=== PATIENT | male | born 1965 | race Hispanic/Latino ===

== ENCOUNTER 2021-04-21 20:15 | Inpatient (IN) | payer OTHER ==
--- OUTSIDE RECORDS SUMMARY | 2021-04-21 20:18 | XMS REPORT | Continuity of Care Document ---
:1965 Author Organization [facility] t Address [address] [place] [address] Care Team Providers Name Role Phone UNKNOWN, REFFERING Primary Care Physician Unavailable Problems This patient has no known problems. Allergies, Adverse Reactions, Alerts This patient has no known allergies or adverse reactions. Medications This patient has no known medications. Procedures This patient has no known procedures. Encounters Start End Encounter Admission Attending Care Care Encounter Source Date/Time Date/Time Type Type Clinicians Facility Department ID 2016-12-13 2016-12-13 Outpatient C [facility] OLY [id number] [address] 11:09:00 11:09:00 [facility] Results Test Description Test Time Test Comments Results Result Comments Source TESTOSTERONE 2021-02-04 03:18:15 Test Item Value Reference Range Interpretation Comme nts TESTOSTERONE (test code = 2830) 299 NG/DL 300-890 L UNLESS OTHERWISE INDICATED, ALL TESTING PERFORMED ATCLINICAL PATH [facility], [place] [address] 4 LABORATORY DIRE CTOR: HALEY JETT M.D. CLIA NUMBER [id number] [place] [id number] FSH + LH [id number] 03:17:56 Test Item Value Reference Range Interpretation Comments FOLLICLE STIM HORMONE (test code = 5.9 IU/L 1.5-12.4 2700) LUTEINIZING HORMONE (test code = 5.3 IU/L 1.2-8.6 2776) [id number] 03:17:56 Test Item Value Reference Range Interpretation Comments PROLACTIN (test 8.1 NG/ML 4.0-26.0 NOTE: Me thodology is Sanna code = 2800) Jerry Electroch emiluminescence Immunoassay ( ECLIA). Values obtained with d ifferent assays/manufact urers cannot be used interchang eably. Results should not be used as sole basis to e stablish the presence or abs ence of malignancy. TSH, THIRD [id number] 03:17:56 Test Item Value Reference Range Interpretation Comments TSH, THIRD GENERATION (test code 2.490 UIU/ML 0.400-4.100 = 2821) HEPATITIS PANEL, [id number] 04:56:50 Test Item Value Reference Range Interpretation Comments HEPATITIS A IgM (test NON-REACTIVE NON-REACTIVE code = 93688) HEPATITIS B CORE IgM NON-REACTIVE NON-REACTIVE (test code = 4644) HEPATITIS B SURF AG NON-REACTIVE NON-REACTIVE (test code = 2739) HEPATITIS C ANTIBODY NON-REACTIVE NON-REACTIVE (test code = 4675) INTERPRETATION (NOTE) Hepatiti s A HEPATITIS A: (test serology shows no code = 2552) evidence of acu te hepatitis A. INTERPRETATION (NOTE) Hepatiti s B HEPATITIS B: (test serology shows no code = 14016) evidence of ac [place] hepatitis B and no indication of exposure to hepatitis B vir us in the previous si xto eight months. INTERPRETATION (NOTE) Hepatiti s C HEPATITIS C: (test serology shows no code = 75192) evidence of ex posure to hepatitisC v irus at this time. It can take up to 12 months after exposure tothe hepatitis C vir us for antibodies to become detectab le in the blood i n certain patient s. UNLESS OTHE RWISE INDICATED, ALL TESTING PERFORM ED ATCLINICAL PATH [facility], I [address]. [address] [place] [address] 4 WAREHOUSE CHECKER: Richard SEGURA NUMBER [id number] [place] O. [id number] HEMOGLOBIN [id number] 04:39:16 Test Item Value Reference Range Interpretation Comments HEMOGLOBIN A1c (test code = 65098) 6.1 % 4.2-5.6 H COMPREHENSIVE METABOLIC [id number] 04:05:39 Test Item Value Reference Range Interpretation Comments GLUCOSE (test code = 75 MG/DL 70-99 2216) BUN (test code = 16 MG/DL 6-20 2207) CREATININE (test 0.99 MG/DL 0.80-1.40 EFFECTIVE code = 2214) 01/17/2021, [facility] HAS IMPLEMENTED THE NKF-ASN RECOMME NDED KD-EPI EGF R REFIT CALCULATI ON THAT DOES NOT INCLUDE A COEFFICIENT FOR RACE. FOR MORE INFORMATION, E ANNOUNCEMENT [email or web address] eGFR (2020 CKD-EPI) 89 ML/MIN/1.73 >60 (test code = 06269) CALC BUN/CREAT (test 16 RATIO 6-28 code = 2235) SODIUM (test code = 143 MEQ/L 871-053 9926) POTASSIUM (test code 4.2 MEQ/L 3.5-5.4 = 2227) CHLORIDE (test code 107 MEQ/L 95-107 = 221) CARBON DIOXIDE (test 25 MEQ/L 19-31 code = 220) CALCIUM (test code = 9.0 MG/DL 8.5-10.5 2208) PROTEIN, TOTAL (test 7.2 G/DL 6.1-8.3 code = 222) ALBUMIN (test code = 4.5 G/DL 3.5-5.2 2200) CALC GLOBULIN (test 2.7 G/DL 1.9-3.7 code = 224) CALC A/G RATIO (test 1.7 RATIO 1.0-2.6 code = 223) BILIRUBIN, TOTAL <0.2 MG/DL See_Comment [Automated message] (test code = 2207) The syste m which generated this result transmit anthony reference range : <=1.2. The refe rence range was not u sed to interpret th is result as normal/abnormal . ALKALINE PHOSPHATASE 66 U/L 40-123 (test code = 2204) AST (test code = 18 U/L 9-50 2217) ALT (test code = 20 U/L 5-50 2218) LIPID [id number] 04:05:39 Test Item Value Reference Range Interpretation Comments CHOLESTEROL (test 161 MG/DL <200 code = 2210) TRIGLYCERIDES (test 211 MG/DL <150 H code = 2232) HDL CHOLESTEROL (test 35 MG/DL >39 L code = 2220) CALC LDL CHOL (test 95 MG/DL <100 NOTE: C ALCULATED LDL code = 2237) IS BASED ON ANGELA-RICHMOND METHOD WHICHINCLUDES ADJUSTABLE TRIGLYCERIDE:VL DL CHOLESTEROL RAT IO.THIS FACTOR VARIES B Y MEASURED TRIGLY CERIDE AND NON-HDLCHOL ESTEROL CONCENTRATIONS WITH INCREASED CALCU LATED LDL SEENIN HIGH ER TRIGLYCERIDE OR LOWER NON-HDL SPECIME NS. FOR MOREINFORMATION , SEE CLIENT ANNOUNCE MENT AT [email or web address] RISK RATIO LDL/HDL 2.71 RATIO <3.55 (test code = 2238) CBC W/AUTO DIFF WITH [id number] 02:59:22 Test Item Value Reference Range Interpretation Comments WBC (test code = 5.9 K/UL 3.5-11.0 1001) RBC (test code = 4.13 M/UL 4.50-6.10 L 1002) HEMOGLOBIN (test code 13.1 G/DL 13.5-17.0 L = 1003) HEMATOCRIT (test code 36.9 % 40.0-51.0 L = 1004) MCV (test code = 89.3 fL 80.0-99.0 1005) MCH (test code = 31.7 PG 25.0-33.0 1006) MCHC (test code = 35.5 G/DL 31.0-36.0 1007) RDW (test code = 12.6 % 11.5-15.0 1038) NEUTROPHILS (test 51.6 % NOTE: EFF ECTIVE code = 1008) 12/27/2020, REFERENCE INTER VALS AND FLAGGING FORRELATIVE (%) WBC DIFFERENTIAL WI LL BE ELIMINATED REDUNDANT TOABS OLUTE COUNTS.SEE [email or web address]_reporting _upda te LYMPHOCYTES (test 33.3 % code = 1010) MONOCYTES (test code 6.1 % = 1011) EOSINOPHILS (test 8.1 % code = 1012) BASOPHILS (test code 0.7 % = 1013) IMMATURE GRANYLOCYTES 0.2 % (test code = 1036) NUCLEATED RBCS (test 0.0 /100 See_Comment [Autom ated message] code = 1065) WBC'S The system [employer] generated this result transmit anthony reference range : 0.0. The refere nce range was not u sed to interpret th is result as normal/abnormal . PLATELET COUNT (test 197 K/UL 130-400 code = 1015) ABSOLUTE NEUTROPHILS 3.07 K/UL 1.50-7.50 (test code = 1066) ABSOLUTE LYMPHOCYTES 1.98 K/UL 1.00-4.00 (test code = 1067) ABSOLUTE MONOCYTES 0.36 K/UL 0.20-1.00 (test code = 1068) ABSOLUTE EOSINOPHILS 0.48 K/UL 0.00-0.50 (test code = 1040) ABSOLUTE BASOPHILS 0.04 K/UL 0.00-0.20 (test code = 1069) ABS IMMATURE 0.01 K/UL 0.00-0.10 GRANULOCYTES (test code = 1020) ABS NUCLEATED RBCS 0.02 K/UL 0.00-0.11 (test code = 73122)
[2021-04-21] MEDS ORDERED: ASPIRIN 81 MG CHEWABLE TABLET ONE ×2 (21:36→22:25)
[2021-04-21 21:39] LABS: Absolute Lymphocytes (CBC) 2.2 K/uL (0.7-4.9); Hematocrit 40.1 % (39.6-49.0); Lymphocytes % 31.1 % (15.3-44.8); RBC Red Blood Cell Count 4.43 M/uL (4.33-5.43)
[2021-04-21 21:54] LABS: Potassium 3.4 mmol/L (3.5-5.1)
[2021-04-21 22:17] LABS: Troponin High Sensitivity 10574.3 pg/mL (<58.9)
--- NOTE | 2021-04-21 22:25 | RAD REPORT ---
EXAM DESCRIPTION: RAD - Chest Single View - 04/21/2021 10:02 pm CLINICAL HISTORY: CHEST PAIN COMPARISON: None TECHNIQUE: AP portable chest image was obtained 04/21/2021 10:02 pm . FINDINGS: Lungs are clear. Heart and vasculature are normal. No measurable pleural effusion and no p neumothorax. No acute bony abnormality seen. No acute aortic findings suspected. IMPRESSION: No acute cardiopulmonary process.
[2021-04-21] MEDS ORDERED: HEPARIN 5000 UNIT/ML 1 ML VIAL ONE (22:53)
[2021-04-21] MEDS ORDERED: HEPARIN/D5W 25,000 UNIT/500 ML BAG IV ONE (22:54)
[2021-04-21] MEDS: HEPARIN/D5W 25,000 UNIT/500 ML BAG IV SCH (23:00)
[2021-04-21 23:17] LABS: Protime INR 0.97
--- NOTE | 2021-04-21 23:40 | P.HP ---
Certification for Inpatient Patient admitted to: Inpatient With expected LOS: >2 Midnights Patient will require the following post-hospital care: None Practitioner: I am a practitioner with admitting privileges, knowledge of patient current condition, hospital course, and medical plan of care. Services: Services provided to patient in accordance with Admission requirements found in Title 42 Section 412.3 of the Code of Federal Regulations Patient History Date of Service: 04/21/21 Reason for admission: NSTEMI History of Present Illness: 56-year-old male with history of hypertension presents the emergency department for chest pain. Patient words ongoing chest pain over the course of the last 7 to 9 days primarily exertional in nature described as pressure-like. Initial EKG showed some T wave inversions but no ST segment elevations. Initial troponin 10,574.3. Patient complains of very mild pressure-like chest pain at this time. All signs are stable patient was started on heparin drip and given aspirin in the emergency department ED provider wishes to admit for further evaluation and management of NSTEMI. Patient reports he had a stress test last about 3 to 4 years ago. - Past Medical/Surgical History -: Hypertension -: Appendectomy Psychosocial/ Personal History: Patient lives at home with family - Family History Family History: Reviewed- Non-Contributory - Social History Smoking Status: Never smoker Alcohol use: No CD- Drugs: No Caffeine use: Yes Place of Residence: Home Review of Systems 10-point ROS is otherwise unremarkable Cardiovascular: Chest Pain, As per HPI Physical Examination - Physical Exam General: Alert, In no apparent distress, Oriented x3 HEENT: Atraumatic, PERRLA, Mucous membr. moist/pink, EOMI, Sclerae nonicteric Neck: Supple, 2+ carotid pulse no bruit, No LAD, Without JVD or thyroid abnormality Respiratory: Clear to auscultation bilaterally, Normal air movement Cardiovascular: Regular rate/rhythm, Normal S1 S2 Gastrointestinal: Normal bowel sounds, No tenderness Musculoskeletal: No tenderness Integumentary: No rashes Neurological: Normal gait, Normal speech, Normal strength at 5/5 x4 extr, Normal tone, Normal affect Lymphatics: No axilla or inguinal lymphadenopathy - Studies Laboratory Data (last 24 hrs) 04/21/21 22:59: PT 10.7, INR 0.97, APTT 29.0 04/21/21 21:30: WBC 7.00, Hgb 14.0, Hct 40.1, Plt Count 236 04/21/21 21:30: Sodium 139, Potassium 3.4 L, BUN 15, Creatinine 1.22, Glucose 187 H Assessment and Plan - Plan Assessment: NSTEMI Hypertension Plan: NSTEMI: Monitor on telemetry, trend troponins, cardiology consulted, continue with heparin drip in addition to aspirin, Plavix, statin, beta-heber as needed morphine/nitro. Echocardiogram ordered. Appreciate further input from cardiology. Patient with very mild pain at this time vital signs are stable. Hypertension: Obtain and continue medications adjust as necessary. DVT PPX: Heparin drip Code status: Full Discharge Plan: Home Plan to discharge in: 48 Hours - Advance Directives Does patient have a Living Will: No Does patient have a Durable POA for Healthcare: No - Code Status/Comfort Care Code Status Assessed: Yes (Full code) Critical Care: No Time Spent Managing Pts Care (In Minutes): 55
--- NOTE | 2021-04-22 01:30 | ER ---
Nurse's Notes [facility] Name: Carlos Nolen Age: 56 yrs Sex: Male : 1965 Arrival Date: 04/21/2021 Time: 20:17 Bed 9 Private MD: Diagnosis: Unstable angina;Subsequent non-ST elevation (NSTEMI) myocardial infarction Presentation: 04/21 20:27 Chief complaint: Patient states: "My chest started hurting pretty bad for the past 7-8 vc1 days". Coronavirus screen: Vaccine status: Patient reports receiving the 2nd dose of the covid vaccine. Pfizer At this time, the client does not indicate any symptoms associated with coronavirus-19. Ebola Screen: No symptoms or risks identified at this time. Initial Sepsis Screen: Does the patient meet any 2 criteria? HR > 90 bpm. No. Patient's initial sepsis screen is negative. Does the patient have a suspected source of infection? No. Patient's initial sepsis screen is negative. Risk Assessment: Do you want to hurt yourself or someone else? Patient reports no desire to harm self or others. Onset of symptoms is unknown. 20:27 Method Of Arrival: Ambulatory vc1 20:27 Acuity: SYLVIE 3 vc1 20:35 Chief complaint: Patient's son or daughter states: "He went to the Dr. the other day vc1 and had an EKG, it was normal so the Dr. said it may be anxiety.". Triage Assessment: 20:32 General: Appears in no apparent distress. Behavior is calm, cooperative, appropriate vc1 for age. Pain: Complains of pain in chest Pain currently is 0 out of 10 on a pain scale. at worst was 7 out of 10 on a pain scale. Aggravated by increased activity. Cardiovascular: Reports chest pain, Had Chest pain GOLF PLAYER ASSISTANT, chest pain is gone now but returns when he walks. Historical: - Allergies: 20:32 No Known Allergies; vc1 - Home Meds: 20:32 amlodipine 2.5 mg tab [Active]; losartan 25 mg oral tab [Active]; hydrochlorothiazide vc1 12.5 mg Oral cap [Active]; - PMHx: 20:32 Hypertensive disorder; Pre-diabetic; vc1 - PSHx: 20:32 Appendectomy; vc1 - Immunization history:: Adult Immunizations up to date, Client reports receiving the 2nd dose of the Covid vaccine. - Social history:: Smoking status: Patient denies any tobacco usage or history of. Patient/guardian denies using alcohol. Screenin:32 Abuse screen: Denies threats or abuse. al4 22:04 Nutritional screening: No deficits noted. Tuberculosis screening: No symptoms or risk al4 factors identified. Fall Risk No fall in past 12 months (0 pts). IV access (20 points). Ambulatory Aid- None/Bed Rest/Nurse Assist (0 pts). Gait- Normal/Bed Rest/Wheelchair (0 pts) Mental Status- Oriented to own ability (0 pts). Total Pink Fall Scale indicates No Risk (0-24 pts). Assessment: 21:20 General: Appears in no apparent distress. comfortable, Behavior is cooperative, al4 anxious, patient reports c/p with exertion that happened 3 to 4 times today. patient reports that this pain started before he went on a trip [facility] and is still happening now - he landed two hours ago. pain is intermittent . Pain: Denies pain. Neuro: Level of Consciousness is awake, alert, obeys commands, Oriented to person, place, time, situation. Cardiovascular: Capillary refill < 3 seconds Patient's skin is warm and dry. Respiratory: Airway is patent Respiratory effort is unlabored, Respiratory pattern is regular. GI: Patient currently denies diarrhea, nausea, vomiting. Musculoskeletal: Range of motion: intact in all extremities. 22:08 Reassessment: Patient and/or family updated on plan of care and expected duration. Pain al4 level reassessed. Patient is alert, oriented x 3, equal unlabored respirations, skin warm/dry/pink. 22:22 Reassessment: TECHNICAL WRITER AND EDITOR in room assessing patient. al4 23:02 Reassessment: Reassessment done with sporting goods sales manager - Humberto Chapin [id number] - patient educated al4 on medication administration and reassessed. all questions answered. 23:17 Reassessment: Patient and/or family updated on plan of care and expected duration. Pain al4 level reassessed. Patient is alert, oriented x 3, equal unlabored respirations, skin warm/dry/pink. 04/22 00:10 Reassessment: No changes from previously documented assessment. Patient denies pain at al4 this time. 01:17 Reassessment: Patient is alert, oriented x 3, equal unlabored respirations, skin al4 warm/dry/pink. Patient denies pain at this time. patient was sleeping. . 01:53 Reassessment: Report called to REMBERTO Barajas. al4 02:00 Reassessment: As400 Analyst ChrissDanni [id number] used to give admit instructions to family. al4 patient and family educated on the need for admit and the plan moving forward. 03:09 Reassessment: 2RN Heparin drip pump check at bedside with Jenn Martin RN . al4 Vital Signs: 04/21 20:27 BP 127 / 92; Pulse 97; Resp 18; Temp 98.2; Pulse Ox 97% ; Weight 97.52 kg; Height 5 ft. vc1 10 in. (177.80 cm); Pain 0/10; 21:20 BP 120 / 86; Pulse 95; Resp 26; Pulse Ox 97% on R/A; Pain 0/10; al4 22:56 Weight 97.8 kg; al4 23:02 BP 131 / 96; Pulse 90; Resp 16; Pulse Ox 98% ; al4 04/22 00:07 BP 120 / 85; Pulse 99; Resp 20; Pulse Ox 99% ; Pain 0/10; al4 01:17 BP 120 / 84; Pulse 97; Resp 16 S; Pulse Ox 97% on R/A; Pain 0/10; al4 02:01 BP 118 / 86; Pulse 105; Resp 14; Pulse Ox 98% on R/A; Pain 0/10; al4 04/21 22:56 Body Mass Index 30.94 (97.80 kg, 177.80 cm) al4 ED Course: 04/21 20:17 Patient arrived in ED. jj6 20:32 Triage completed. vc1 20:32 Arm band placed on left wrist. vc1 21:07 Krish Law MD is Attending Physician. kdr 21:10 Alber Rodríguez is Primary Nurse. al4 21:21 Patient has correct armband on for positive identification. shelter monitor on. Pulse al4 ox on. NIBP on. Warm blanket given. 21:32 Inserted saline lock: 20 gauge in right forearm, using aseptic technique. Blood al4 collected. 22:02 XRAY Chest (1 view) In Process Unspecified. EDMS 22:18 Notified ED physician of a critical lab [place] [address] Dr Law bb notified. 23:16 PT-INR Sent. al4 23:16 Ptt, Activated Sent. al4 23:16 SARS-COV-2 RT PCR Sent. al4 23:16 COVID-19 SARS RT PCR (Document "Date of Onset" if Symptomatic) Sent. al4 04/22 01:26 Gil Mullen MD is Hospitalizing Provider. kdr 01:48 No provider procedures requiring assistance completed. Patient admitted, IV remains in al4 place. Administered Medications: 04/21 21:51 Not Given (Physician Discretion): Aspirin Chewable Tablet 324 mg PO once; 81 mg tablets al4 x 4 23:00 Drug: Aspirin Chewable Tablet 243 mg Route: PO; al4 04/22 00:00 Follow up: Response: No adverse reaction al4 04/21 23:12 Drug: Heparin (AK Drip) 12 units/kg/hr - (HEParin 51256 units, D5W 500 ml) al4 {Co-Signature: tk1 (Izabel Harris).} Route: IV; Rate: calculated rate; Site: right forearm; 23:13 Drug: Heparin (AK-Bolus No thrombolytic) - HEParin 60 units/kg {Co-Signature: tk1 al4 (Izabel Harris).} Route: IVP; Site: right forearm; Outcome: 04/22 01:30 Decision to Hospitalize by Provider. kdr 01:48 Admitted to Med/surg room 216. al4 01:48 Condition: stable 01:48 Instructed on the need for admit, Demonstrated understanding of instructions. 02:49 Patient left the ED. bb Signatures: Dispatcher [employer] EDKrish James MD MD kdr Ballard, Brenda RN RN Bertha Castaneda Alexis al4 Manda Jose RN RN 1 Izabel Harris tk1 Corrections: (The following items were deleted from the chart) 04/21 20:34 20:32 PSHx: None; vc1 vc1 04/22 01:37 04/21 22:03 Patient has correct armband on for positive identification. al4 al4 04/22 01:37 04/21 22:03 shelter monitor on. Pulse ox on. NIBP on. al4 al4 04/22 01:37 04/21 22:08 Warm blanket given. al4 al4
--- NOTE | 2021-04-22 01:31 | EDPHYS ---
Physician Documentation [facility] Name: Carlos Nolen Age: 56 yrs Sex: Male : 1965 Arrival Date: 04/21/2021 Time: 20:17 Bed 9 Private MD: ED Physician Krish Law HPI: 04/22 07:23 This 56 yrs old Male presents to ER via Ambulatory with complaints of Chest kdr Pressure, Chest Tightness, Anxiety. 07:23 The patient or guardian reports chest pain that is located primarily in the substernal kdr area, epigastric area. Onset: 8 day(s) ago. The pain does not radiate. Associated signs and symptoms: The patient has no apparent associated signs or symptoms. The chest pain is described as aching, burning, crushing. Duration: The patient or guardian reports multiple episodes. Severity of pain: At its worst the pain was in the emergency department the pain has resolved No pain at the time of my exam in the ED. Historical: - Allergies: 04/21 20:32 No Known Allergies; vc1 - Home Meds: 20:32 amlodipine 2.5 mg tab [Active]; losartan 25 mg oral tab [Active]; hydrochlorothiazide vc1 12.5 mg Oral cap [Active]; - PMHx: 20:32 Hypertensive disorder; Pre-diabetic; vc1 - PSHx: 20:32 Appendectomy; vc1 - Immunization history:: Adult Immunizations up to date, Client reports receiving the 2nd dose of the Covid vaccine. - Social history:: Smoking status: Patient denies any tobacco usage or history of. Patient/guardian denies using alcohol. ROS: 04/22 07:24 Constitutional: Negative for fever, chills, and weight loss, Eyes: Negative for injury, kdr pain, redness, and discharge, ENT: Negative for injury, pain, and discharge, Neck: Negative for injury, pain, and swelling, Respiratory: Negative for shortness of breath, cough, wheezing, and pleuritic chest pain, Abdomen/GI: Negative for abdominal pain, nausea, vomiting, diarrhea, and constipation, Back: Negative for injury and pain, MS/Extremity: Negative for injury and deformity, Skin: Negative for injury, rash, and discoloration, Neuro: Negative for headache, weakness, numbness, tingling, and seizure activity. Cardiovascular: Positive for chest pain, With exertion. Exam: 07:24 Constitutional: This is a well developed, well nourished patient who is awake, alert, kdr and in no acute distress. Head/Face: Normocephalic, atraumatic. Eyes: Pupils equal round and reactive to light, extra-ocular motions intact. Lids and lashes normal. Conjunctiva and sclera are non-icteric and not injected. Cornea within normal limits. Periorbital areas with no swelling, redness, or edema. Neck: Trachea midline, no thyromegaly or masses palpated, and no cervical lymphadenopathy. Supple, full range of motion without nuchal rigidity, or vertebral point tenderness. No Meningismus. Chest/axilla: Normal chest wall appearance and motion. Nontender with no deformity. No lesions are appreciated. Cardiovascular: Regular rate and rhythm with a normal S1 and S2. No gallops, murmurs, or rubs. Normal PMI, no JVD. No pulse deficits. Respiratory: Lungs have equal breath sounds bilaterally, clear to auscultation and percussion. No rales, rhonchi or wheezes noted. No increased work of breathing, no retractions or nasal flaring. Abdomen/GI: Soft, non-tender, with normal bowel sounds. No distension or tympany. No guarding or rebound. No evidence of tenderness throughout. Back: No spinal tenderness. No costovertebral tenderness. Full range of motion. Skin: Warm, dry with normal turgor. Normal color with no rashes, no lesions, and no evidence of cellulitis. MS/ Extremity: Pulses equal, no cyanosis. Neurovascular intact. Full, normal range of motion. Neuro: Awake and alert, GCS 15, oriented to person, place, time, and situation. Cranial nerves II-XII grossly intact. Motor strength 5/5 in all extremities. Sensory grossly intact. Cerebellar exam normal. Normal gait. Psych: Awake, alert, with orientation to person, place and time. Behavior, mood, and affect are within normal limits. Vital Signs: 04/21 20:27 BP 127 / 92; Pulse 97; Resp 18; Temp 98.2; Pulse Ox 97% ; Weight 97.52 kg; Height 5 ft. vc1 10 in. (177.80 cm); Pain 0/10; 21:20 BP 120 / 86; Pulse 95; Resp 26; Pulse Ox 97% on R/A; Pain 0/10; al4 22:56 Weight 97.8 kg; al4 23:02 BP 131 / 96; Pulse 90; Resp 16; Pulse Ox 98% ; al4 0318 00:07 BP 120 / 85; Pulse 99; Resp 20; Pulse Ox 99% ; Pain 0/10; al4 01:17 BP 120 / 84; Pulse 97; Resp 16 S; Pulse Ox 97% on R/A; Pain 0/10; al4 02:01 BP 118 / 86; Pulse 105; Resp 14; Pulse Ox 98% on R/A; Pain 0/10; al4 04/21 22:56 Body Mass Index 30.94 (97.80 kg, 177.80 cm) al4 MDM: 01:30 Patient medically screened. kdr 07:24 HARI Risk Score: 1 - Three or more CAD risk factors, 1 - Recent [<24hrs] Severe Angina, kdr 1 - Elevated Cardiac Markers, 1 - ST deviation >0.5mm. Data reviewed: vital signs, nurses notes, lab test result(s), EKG, radiologic studies. 04/21 21:21 Order name: Basic Metabolic Panel [facility] 04/21 21:21 Order name: CBC with Diff [facility] 04/21 21:21 Order name: Troponin HS [facility] 04/21 22:43 Order name: COVID-19 SARS RT PCR (Document "Date of Onset" if Symptomatic) la1 04/21 22:44 Order name: SARS-COV-2 RT PCR [facility] 04/21 22:52 Order name: Ptt, Activated [facility] 04/21 21:21 Order name: XRAY Chest (1 view) [facility] 04/21 21:21 Order name: EKG; Complete Time: 21:22 kdr 04/21 21:21 Order name: Cardiac monitoring; Complete Time: 21:51 [facility] 04/21 22:52 Order name: PT-INR [facility] 04/21 21:21 Order name: EKG - Nurse/Tech; Complete Time: 21:51 kdr 04/21 21:21 Order name: IV Saline Lock; Complete Time: 21:32 kdr 04/21 21:21 Order name: Labs collected and sent; Complete Time: 21:32 [facility] 04/21 21:21 Order name: O2 Per Protocol; Complete Time: 21:32 kdr 04/21 21:21 Order name: O2 Sat Monitoring; Complete Time: 21:51 kdr Administered Medications: 04/21 21:51 Not Given (Physician Discretion): Aspirin Chewable Tablet 324 mg PO once; 81 mg tablets al4 x 4 23:00 Drug: Aspirin Chewable Tablet 243 mg Route: PO; al4 04/22 00:00 Follow up: Response: No adverse reaction al4 04/21 23:12 Drug: Heparin (AR Drip) 12 units/kg/hr - (HEParin 71278 units, D5W 500 ml) al4 {Co-Signature: tk1 (Izabel Harris).} Route: IV; Rate: calculated rate; Site: right forearm; 23:13 Drug: Heparin (AR-Bolus No thrombolytic) - HEParin 60 units/kg {Co-Signature: tk1 al4 (Izabel Harris).} Route: IVP; Site: right forearm; Disposition Summary: 04/22/21 01:30 Hospitalization Ordered Hospitalization Status: Inpatient Admission kdr Provider: Gil Mullen kdr Location: Telemetry/MedSurg (Inpatient) kdr Condition: Fair kdr Problem: new kdr Symptoms: have improved kdr Bed/Room Type: Standard kdr Room Assignment: 216(04/22/21 01:37) cg Diagnosis - Unstable angina kdr - Subsequent non-ST elevation (NSTEMI) myocardial infarction kdr Forms: - Medication Reconciliation Form kdr - SBAR form kdr Signatures: Dispatcher [employer] Krish Chang MD MD kdr Jay Jones FNP-C FNP-Vira Loyd RN RN cg Alber Rodríguez al4 Manda Jose RN RN vc1 Izabel Harris tk1 Corrections: (The following items were deleted from the chart) 20:34 20:32 PSHx: None; vc1 vc1 04/22 01:37 01:30 kdr cg
[2021-04-22] MEDS ORDERED: MORPHINE 2 MG/ML SYR IV PRN (01:54)
[2021-04-22] MEDS ORDERED: NITROGLYCERIN 0.4 MG/TAB SL PRN (01:54)
[2021-04-22] MEDS ORDERED: ONDANSETRON 4 MG/2 ML VIAL IV PRN (01:54)
--- NOTE | 2021-04-22 06:13 | P.PN ---
Date of Service: 04/22/21 Subjective: No longer having chest pain since the ER Otherwise feeling okay, no shortness of breath, no nausea, no vomiting No fever/chills ROS: 10 point ROS as noted above, otherwise negative Physical exam GEN: Alert, oriented, NAD HEENT: Normal conjunctiva, sclera anicteric CV: Regular rate and rhythm, no edema Pulm: Nonlabored respirations on room air ABD: Soft, nontender, nondistended Neuro: Normal speech, normal affect Problem List NSTEMI Hypertension Continue telemetry, troponin elevated, stable Cardiology consulted Continue heparin drip, aspirin, statin, beta-heber Echocardiogram ordered For possible cardiac catheterization VTE: Heparin drip Code: Full Dispo: Home, pending further evaluation Time Spent Managing Pts Care (In Minutes): 35
[2021-04-22] MEDS: METOPROLOL TAR 25 MG TAB PO SCH ×2 (06:40→17:26)
[2021-04-22 07:01] LABS: Thyroid Stimulating Hormone 2.02 uIU/mL (0.360-3.740)
[2021-04-22 07:02] LABS: Troponin High Sensitivity 10293.3 pg/mL (<58.9)
[2021-04-22] MEDS: NA CHLORIDE 0.9% 1,000 ML IV SCH ×3 (08:10→21:54)
[2021-04-22] MEDS ORDERED: CLOPIDOGREL 75 MG TABLET PO SCH (09:00)
[2021-04-22] MEDS ORDERED: POTASSIUM CL SA 10 MEQ TAB PO ONE (09:00)
[2021-04-22] MEDS ORDERED: POTASSIUM 25 MEQ EFFERV TAB PO ONE (09:23)
[2021-04-22] MEDS: ASPIRIN EC 81 MG TAB PO SCH (10:19)
[2021-04-22 12:09] LABS: Urine Appearance CLEAR (Clear); Urine Bilirubin NEGATIVE (Negative); Urine Blood NEGATIVE (Negative); Urine Color YELLOW (Yellow); Urine Glucose NEGATIVE (Negative); Urine Protein NEGATIVE (Negative); Urine Specific Gravity 1.015 (1.005-1.030)
[2021-04-22 12:11] LABS: Urine Microscopic Reflex NO UMIC
[2021-04-22] MEDS: HEPARIN/D5W 25,000 UNIT/500 ML BAG IV SCH (22:07)
[2021-04-22] MEDS: ATORVASTATIN 40 MG TAB PO SCH (22:07)
--- NOTE | 2021-04-22 23:01 | CON ---
Date of Consultation: 04/22/2021 Reason For Consultation: [id number] myocardial infarction. History Of Present Illness: 56-year-old male with history of hypertension, who presented with chest pain in the middle of the chest for the past 7-9 days, coming and going, pressure-like, related to ex ertion. When evaluated in the emergency room, troponin was in 10,000 range, but chest pain resolved and has been chest pain-free. Aside from that completely comfortable. No symptoms. Past Medical History: Hypertension. Past Surgical History: Appendectomy. Medications: Refer reconciliation sheet for detailed list. Allergies: NO KNOWN DRUG ALLERGIES. Family History: No premature coronary artery disease or cancer. Social History: Does not smoke or drink. Does not use any drugs. Review of Systems: All systems reviewed and they were negative except as mentioned in the HPI. Physical Examination: Vital Signs: Reviewed. Head and Neck: Pupils are equal, reactive to light. Intact eye movements. No JVD. No cervical lym phadenopathy. Neck is supple. Thyroid is not enlarged. Lungs: Clear to auscultation bilaterally. No rhonchi, rales, or crackles. No accessory muscle use. Heart: Regular rate and rhythm. No extra sounds. Abdomen: Soft and nontender. Bowel sounds positive. No organomegaly. No masses or hernia. No rig idity or rebound. Extremities: No edema, clubbing, or cyanosis. Intact pulses. Skin: No rashes. Neurologic: Alert, awake, and oriented x3. No acute focal deficits appreciated. Investigations: Hemoglobin is 14. Troponin peaked at 11,038. Creatinine is 1.22. Assessment And Recommendations: [id number] myocardial infarction. He is chest pain-free and t roponins already peaked. Please check another set of troponin to make sure it is trending down. An echo has normal ejection fraction. So, at this point, I recommend aspirin and full anticoagulation w ith heparin or Lovenox. To keep n.p.o. past midnight on Sunday night and plan for coronary angiogram on Sunday morning. If his symptoms changes and/or if his troponin rises substantially or he starts having EKG dynamic changes, then we will plan for a transfer for urgent coronary angiogram, otherwise we will plan for it on Sunday. Start the patient on low dose of beta-heber, metoprolol 12.5 mg tw ice a day, and I will follow the patient with you. IVONE Voice ID: [id number] Report ID: [id number]
[2021-04-23 03:37] LABS: Hematocrit 39.1 % (39.6-49.0); MPV 7.6 fL (7.6-11.3); RBC Red Blood Cell Count 4.26 M/uL (4.33-5.43)
[2021-04-23 03:48] LABS: BUN Blood Urea Nitrogen 11 mg/dL (7-18); Bicarbonate 27 mmol/L (21-32); Glucose Level 122 mg/dL (74-106); Magnesium 2.3 mg/dL (1.8-2.4); Sodium Level 140 mmol/L (136-145)
[2021-04-23] MEDS: NA CHLORIDE 0.9% 1,000 ML IV SCH ×2 (04:43→08:34)
--- NOTE | 2021-04-23 06:19 | P.PN ---
Date of Service: 04/23/21 Subjective: No chest pain, no shortness of breath, no nausea/vomiting Denies any new symptoms, otherwise feeling okay ROS: 10 point ROS as noted above, otherwise negative Physical exam GEN: Alert, oriented, NAD HEENT: Normal conjunctiva, sclera anicteric CV: Regular rate and rhythm, no edema Pulm: Nonlabored respirations on room air ABD: Soft, nontender, nondistended Neuro: Normal speech, normal affect Problem List NSTEMI Hypertension Troponin peaked at 12,000 this morning Continue telemetry Cardiology consulted - plan for cardiac cath sunday Continue heparin drip, aspirin, statin, beta-heber Echocardiogram reportedly with normal EF VTE: Heparin drip Code: Full Dispo: Home, after cardiac cath, possible transfer if needs CABG Time Spent Managing Pts Care (In Minutes): 35
[2021-04-23] MEDS: METOPROLOL TAR 25 MG TAB PO SCH ×2 (06:48→18:39)
[2021-04-23] MEDS: ASPIRIN EC 81 MG TAB PO SCH (08:35)
[2021-04-23] MEDS: HEPARIN/D5W 25,000 UNIT/500 ML BAG IV SCH (15:22)
--- NOTE | 2021-04-23 19:55 | PN ---
Date of Progress Note: 04/23/2021 Subjective: Seen at bedside. He has been chest pain free and comfortable in bed. No changes in con dition. Review of Systems: No chest pain, shortness of breath, orthopnea, cough. No nausea, vomiting, diarrhea. All other syst ems reviewed were negative. Physical Examination: Vital Signs: Reviewed. Head and Neck: Pupils are equal and reactive to light. Intact eye movements. No JVD. No cervical lymphadenopathy. Neck is supple. Thyroid is not enlarged. Lungs: Clear to auscultation bilaterally. No rhonchi, rales, or crackles. No accessory muscle use. Heart: Regular rate and rhythm. No extra sounds. Abdomen: Soft, nontender. Bowel sounds positive. No organomegaly. No masses or hernia. No rigidi ty or rebound.. Extremities: No edema, clubbing, cyanosis. Intact pulses. Skin: No rashes. Neurologic: Alert, awake, oriented x3. No acute focal deficits appreciated. Investigations: Labs were reviewed. Assessment And Recommendations: Non-ST elevation myocardial infarction. Troponin is trending now do wn, peaked at 12,000, now it is 10,000 and reviewed the echo and EF is normal. Continue anticoagulat ion and aspirin. Plan for coronary angiogram on Sunday unless condition changes. Continue with metoprolol as well, nitrates for pain control. SR/MODL Voice ID: [id number] Report ID: [id number]
[2021-04-23] MEDS: ATORVASTATIN 40 MG TAB PO SCH (23:04)
[2021-04-24] MEDS: NA CHLORIDE 0.9% 1,000 ML IV SCH ×3 (00:28→18:33)
[2021-04-24 05:54] LABS: MPV 7.4 fL (7.6-11.3)
[2021-04-24 06:01] LABS: Potassium 3.8 mmol/L (3.5-5.1)
--- NOTE | 2021-04-24 06:22 | P.PN ---
Date of Service: 04/24/21 Subjective: No chest pain, no shortness of breath, no nausea/vomiting Denies any new symptoms, otherwise feeling okay waiting for cardiac cath ROS: 10 point ROS as noted above, otherwise negative Physical exam GEN: Alert, oriented, NAD HEENT: Normal conjunctiva, sclera anicteric CV: Regular rate and rhythm, no edema Pulm: Non-labored respirations on room air ABD: Soft, nontender, nondistended Neuro: Normal speech, normal affect Problem List NSTEMI Hypertension Troponin peaked at 12,000 yesterday Continue telemetry Cardiology consulted - plan for cardiac cath tomorrow; NPO after midnight Continue heparin drip, aspirin, statin, beta-heber Echocardiogram reportedly with normal EF VTE: Heparin drip Code: Full Dispo: Home, after cardiac cath, possible transfer if needs CABG Time Spent Managing Pts Care (In Minutes): 35
[2021-04-24] MEDS: METOPROLOL TAR 25 MG TAB PO SCH ×2 (06:53→18:32)
[2021-04-24] MEDS: HEPARIN/D5W 25,000 UNIT/500 ML BAG IV SCH (08:43)
[2021-04-24] MEDS: ASPIRIN EC 81 MG TAB PO SCH (08:44)
[2021-04-24] MEDS ORDERED: POTASSIUM CL SA 10 MEQ TAB PO ONE (09:00)
--- NOTE | 2021-04-24 19:37 | PN ---
Date of Progress Note: 04/24/2021 Subjective: Seen by bedside. Doing well. Still chest pain-free and troponin trended down. Review of Systems: No chest pain, shortness of breath, orthopnea, cough. No nausea, vomiting, diarrhea. No abdominal p ain. No dysuria, pyuria, urgency. All other systems reviewed are negative. Physical Examination: Vital Signs: Reviewed. Head and Neck: Pupils are equal, reactive to light. Intact eye movements. No JVD. No cervical lym phadenopathy. Neck is supple. Thyroid is not enlarged. Lungs: Clear to auscultation bilaterally. No rhonchi, rales, or crackles. No accessory muscle use. Heart: Regular rate and rhythm. No extra sounds. Abdomen: Soft, nontender. Bowel sounds positive. No organomegaly. No masses or hernia. No rigidi ty or rebound. Extremities: No edema, clubbing, or cyanosis. Intact pulses. Skin: No rash. Neuro: Alert, awake, oriented x3. No acute focal deficits appreciated. Investigations: Labs were reviewed. Assessment And Recommendations: Non-ST elevation myocardial infarction. Continue IV heparin and asp irin. N.p.o. past midnight for coronary angiogram in the morning. SR/MODL Voice ID: [id number] Report ID: [id number]
[2021-04-24] MEDS: ATORVASTATIN 40 MG TAB PO SCH (21:59)
[2021-04-25 02:39] VITALS: BMI 30.5
[2021-04-25] MEDS: NA CHLORIDE 0.9% 1,000 ML IV SCH ×2 (05:04→22:27)
[2021-04-25] MEDS: HEPARIN/D5W 25,000 UNIT/500 ML BAG IV SCH (05:04)
[2021-04-25 05:40] LABS: Absolute Lymphocytes (CBC) 2.1 K/uL (0.7-4.9); Hematocrit 38.9 % (39.6-49.0); Lymphocytes % 29.9 % (15.3-44.8); MPV 7.4 fL (7.6-11.3); RBC Red Blood Cell Count 4.25 M/uL (4.33-5.43)
[2021-04-25 05:44] LABS: Protime INR 1.14
[2021-04-25] MEDS: ASPIRIN EC 81 MG TAB PO SCH (05:49)
[2021-04-25] MEDS: METOPROLOL TAR 25 MG TAB PO SCH ×2 (05:50→18:00)
--- NOTE | 2021-04-25 06:10 | P.PN ---
Date of Service: 04/25/21 Subjective: No chest pain, no shortness of breath, no nausea/vomiting awaiting cardiac cath today ROS: 10 point ROS as noted above, otherwise negative Physical exam GEN: Alert, oriented, NAD HEENT: Normal conjunctiva, sclera anicteric CV: Regular rate and rhythm, no edema Pulm: Non-labored respirations on room air ABD: Soft, nontender, nondistended Neuro: Normal speech, normal affect Problem List NSTEMI Hypertension Troponin peaked at 12,000 on 04/23 Continue telemetry Cardiology consulted - plan for cardiac cath today; NPO Continue heparin drip, aspirin, statin, beta-heber Echocardiogram reportedly with normal EF VTE: Heparin drip Code: Full Dispo: Home, pending cath results, in next 24hrs Time Spent Managing Pts Care (In Minutes): 35
--- NOTE | 2021-04-25 08:23 | ECHO ---
HEIGHT: 5 ft 10 in WEIGHT: 213 lb 1.6 oz DATE OF STUDY: 04/22/[address]: Jay Jones NP 2-DIMENSIONAL: YES M.MODE: YES DOPPLER: YES COLOR FLOW: YES TDS: NO PORTABLE: NO DEFINITY: NO BUBBLE STUDY: NO DIAGNOSIS: NSTEMI CARDIAC HISTORY: CATHERIZATION: NO SURGERY: NO PROSTHETIC VALVE: NO PACEMAKER: NO MEASUREMENTS (cm) DIASTOLIC (NORMALS) SYSTOLIC (NORMALS) IVSd 1.1 (0.6-1.2) LA Diam 2.8 (1.9-4.0) LVEF 61% LVIDd 4.2 (3.5-5.7) LVIDs 2.8 (2.0-3.5) %FS 32% LVPWd 1.1 (0.6-1.2) Ao Diam 3.3 (2.0-3.7) 2 DIMENSIONAL ASSESSMENT: RIGHT ATRIUM: NORMAL LEFT ATRIUM: NORMAL RIGHT VENTRICLE: NORMAL LEFT VENTRICLE: NORMAL TRICUSPID VALVE: NORMAL MITRAL VALVE: MILD MITRAL REGURGITATION PULMONIC VALVE: NORMAL AORTIC VALVE: NORMAL PERICARDIAL EFFUSION: NONE AORTIC ROOT: NORMAL LEFT VENTRICULAR WALL MOTION: NORMAL. DOPPLER/COLOR FLOW: SEE BELOW. COMMENTS: NORMAL LEFT VENTRICULAR EJECTION FRACTION 55-60%. NORMAL WALL MOTION. MILD MITRAL REGURGITATION. TECHNOLOGIST: MICHEAL CLEVELAND
--- NOTE | 2021-04-25 08:28 | EKG ---
Test Date: 2021-04-21 Test Time: 21:34:28 Clothing Consultant: MORENA MEASUREMENT RESULTS: Intervals: Rate: 94 NV: 212 QRSD: 84 QT: 368 QTc: 460 [place]: P: 57 NV: 212 QRS: 9 T: 87 INTERPRETIVE STATEMENTS: Sinus rhythm with 1st degree AV block Nonspecific ST and T wave abnormality Prolonged QT Abnormal ECG No previous ECG available for comparison Electronically Signed On 04-25-21 08:22:58 CDT by Brenden Monteiro
--- NOTE | 2021-04-25 08:28 | EKG ---
Test Date: 2021-04-21 Test Time: 21:35:16 Puff Ironer: MORENA MEASUREMENT RESULTS: Intervals: Rate: 92 TN: 218 QRSD: 84 QT: 370 QTc: 457 [place]: P: 52 TN: 218 QRS: 4 T: 85 INTERPRETIVE STATEMENTS: Sinus rhythm with 1st degree AV block ST depression, consider subendocardial injury or digitalis effect Nonspecific T wave abnormality Abnormal ECG Compared to ECG 04/21/2021 21:34:28 T-wave abnormality now present Prolonged QT interval no longer present ST (T wave) deviation still present Electronically Signed On 04-25-21 08:22:57 CDT by Brenden Monteior
[2021-04-25] MEDS ORDERED: HEPARIN 5000 UNIT/ML 1 ML VIAL ONE (10:57)
[2021-04-25] MEDS ORDERED: HEPA 1000U/500MLS 2,000 UNIT/1,000 ML BAG IV ONE (10:57)
[2021-04-25] MEDS ORDERED: VERAPAMIL HCL 10 MG/4 ML VIAL IV ONE (10:57)
[2021-04-25] MEDS ORDERED: LIDOCAINE 1% 20 ML MDV ONE (10:57)
[2021-04-25] MEDS ORDERED: NITROGLYCERIN 100 MCG/ML SYR (for cath lab use only) IV ONE (10:58)
[2021-04-25] MEDS ORDERED: ATROPINE SULF 1 MG/10 ML SYR IV ONE (10:58)
[2021-04-25] MEDS ORDERED: NITROGLYCERIN/D5W 25 MG/250 ML BTL IV ONE (10:58)
[2021-04-25] MEDS ORDERED: HEPARIN 10,000 UNIT/10 ML VIAL IV ONE ×2 (10:58→13:26)
[2021-04-25] MEDS ORDERED: MIDAZOLAM HCL 2 MG/2 ML INJ ONE (11:54)
[2021-04-25] MEDS ORDERED: FENTANYL CITR 100 MCG/2 ML ONE (11:54)
[2021-04-25] MEDS ORDERED: TICAGRELOR 90 MG TABLET PO ONE ×2 (12:54→12:58)
--- NOTE | 2021-04-25 14:09 | OP ---
Date of Procedure: 04/25/2021 Surgeon: DEBBIE ALCOCER Procedures Performed: 1.Selective coronary angiogram. 2.Left heart catheterization. 3.PCI of critical proximal LAD stenosis, which is a culprit for the WY. It was 99% stenosis with TI WY 1 flow. 4.Successful PCI achieved using a 4.0 x 60 mm Synergy drug-eluting stent. Indication: Non-ST elevation myocardial infarction. Access: Right radial artery 6-St Helenian closed with TR band. Complications: None. Bleeding: Less than 10 mL. Description Of Procedure: After risks, benefits, and alternatives were explained, the patient agreed to procedure and signed informed consent. The patient was brought into the cardiac catheterization laboratory, prepped and draped in the usual sterile fashion. I accessed right radial artery using pe diatric micropuncture kit, placed a 6-St Helenian Slender sheath, and took a 5-[place]ian tiger 4.0 catheter i nto the aortic root, engaged left main and right coronary artery. Took standard views and catheter w as pushed again across the valve over the wire into the LV. LVEDP was measured and pullback did not record gradient. Subsequently, we gave systemic heparin to assure ACT level above 250 throughout the procedure and gave 180 of Brilinta. The patient already received aspirin today. Then, I took a 6-F rench XB3.5 guide into the aortic root, engaged left main, and took a short Run-Through wire into the left main and LAD crossing the stenosis and then used a 3.0 x 12 mm compliant balloon and then 4.0 x 12 noncompliant balloon to pre-dilate the lesion. I placed 4.0 x 60 mm Synergy drug-eluting stent w ith excellent results and then removed the wire and the guide and sheath, placed TR band with good he mostasis. Findings: 1.Left main; large, normal. 2.LAD; very large vessel with proximal 99% stenosis and HARI-1 flow, which is a culprit for the WY. Status post successful PCI using 4.0 x 60 mm Synergy drug-eluting stent with resultant 0% residual s tenosis and HARI-3 flow in the vessel. Then, in the mid LAD after diagonal 2, takeoff as above 40% t o 55% focal occlusion with HARI-3 flow and luminal irregularities. All diagonal branch looked normal . 3.Left circumflex; large, dominant with mid 50% and then the takeoff of the OM1 which is large vesse l, also has proximal 40% to 50%. 4.Ramus intermedius is a large vessel with proximal 40% stenosis. 5.RCA; small, nondominant, and no disease. 6.LVEDP elevated at 23 mmHg. Conclusions: 1.Severe proximal LAD stenosis which is the culprit of the WY, 99% stenosis, status post successful PCI with 0% residual stenosis and HARI-3 flow at the end of the procedure. 2.Moderate coronary artery disease elsewhere. Plan: Brilinta, aspirin and statin. Follow up with me in the office in 4 weeks post discharge. SR/AICHA Voice ID: [id number] Report ID: [id number]
[2021-04-25 17:50] VITALS: O2SAT 98
[2021-04-25] MEDS: ATORVASTATIN 40 MG TAB PO SCH (22:26)
[2021-04-26 05:44] LABS: Potassium 3.9 mmol/L (3.5-5.1)
[2021-04-26] MEDS: NA CHLORIDE 0.9% 1,000 ML IV SCH (07:20)
[2021-04-26] MEDS: METOPROLOL TAR 25 MG TAB PO SCH (07:20)
[2021-04-26 08:17] VITALS: BP 138/80; TEMP 98.4
--- NOTE | 2021-04-26 08:54 | P.DS ---
Admission Date: 04/21/21 Discharge Date: 04/26/21 Disposition: ROUTINE DISCHARGE Discharge Condition: FAIR Reason for Admission: NSTEMI Brief History of Present Illness: 56-year-old male with history of hypertension presents the emergency department for chest pain. Patient reported ongoing chest pain over the course of 7 to 9 days. Chest pain described as pressure-like and worse with exertion. Initial EKG showed some T wave inversions but no ST segment elevations. Initial troponin 10,574.3. Patient diagnosed with NSTEMI and was given aspirin and started on heparin drip. He was admitted for further management. Hospital Course: Problem List NSTEMI Hypertension Patient admitted to the medical floor on NSTEMI protocol. He was treated with heparin drip, aspirin and statins. Troponin peaked at 12,000. Patient seen by cardiology who performed cardiac catheterization. His LAD was stented with SHEMAR Patient monitored overnight with no event. Patient discharged with Brilinta aspirin and statins per Dr. Colunga recommendation. Vital Signs/Physical Exam: Temp Pulse Resp BP Pulse Ox 98.4 F 66 16 138/80 98 04/26/21 08:00 04/26/21 08:00 04/26/21 08:00 04/26/21 08:00 04/26/21 08:00 General: Alert, In no apparent distress HEENT: Mucous membr. moist/pink Neck: JVD not distended Respiratory: Clear to auscultation bilaterally, Normal air movement Cardiovascular: No edema, Regular rate/rhythm, Normal S1 S2 Gastrointestinal: Soft and benign, Non-distended Musculoskeletal: No swelling Integumentary: No rashes, No cyanosis Neurological: Normal strength at 5/5 x4 extr Laboratory Data at Discharge: WBC 7.20 K/uL (4.3-10.9) 04/25/21 05:13 Hgb 13.3 g/dL (13.6-17.9) L 04/25/21 05:13 Hct 38.9 % (39.6-49.0) L 04/25/21 05:13 Plt Count 211 K/uL (152-406) 04/25/21 05:13 PT 12.6 SECONDS (9.5-12.5) H 04/25/21 05:13 INR 1.14 04/25/21 05:13 APTT 237.1 SECONDS (24.3-36.9) H* 04/25/21 16:00 Sodium 138 mmol/L (136-145) 04/26/21 05:06 Potassium 3.9 mmol/L (3.5-5.1) 04/26/21 05:06 BUN 12 mg/dL (7-18) 04/26/21 05:06 Creatinine 1.09 mg/dL (0.55-1.3) 04/26/21 05:06 Glucose 121 mg/dL (74-106) H 04/26/21 05:06 Magnesium 2.3 mg/dL (1.8-2.4) 04/23/21 03:09 Triglycerides 206 mg/dL (<150) H 04/22/21 03:10 Cholesterol 159 mg/dL (<200) 04/22/21 03:10 HDL Cholesterol 37 mg/dL (40-60) L 04/22/21 03:10 Cholesterol/HDL Ratio 4.30 04/22/21 03:10 Home Medications: Losartan Potassium 25 mg PO DAILY 04/23/21 Aspirin [Aspirin EC 81 MG] 81 mg PO DAILY #30 tablet. 04/26/21 Atorvastatin Calcium [Lipitor] 40 mg PO BEDTIME #30 tab 04/26/21 Metoprolol Tartrate [Lopressor*] 25 mg PO BID 6AM 6PM #60 tab 04/26/21 Ticagrelor [Brilinta] 90 mg PO BID #60 tablet 04/26/21 New Medications: Aspirin [Aspirin EC 81 MG] 81 mg PO DAILY #30 tablet. Ticagrelor [Brilinta] 90 mg PO BID #60 tablet Atorvastatin Calcium [Lipitor] 40 mg PO BEDTIME #30 tab Metoprolol Tartrate [Lopressor*] 25 mg PO BID 6AM 6PM #60 tab Diet: AHA Activity: Ad lucien Followup: Casper Colunga MD [ACTIVE - CAN ADMIT] - (Scheduler Conveyor: follow up Within 4 weeks. Call for apointment) Time spent managing pt's care (in minutes): 36
[2021-04-26] MEDS: ASPIRIN EC 81 MG TAB PO SCH (09:27)
--- NOTE | 2021-04-28 11:16 | PN ---
Date of Progress Note: 04/26/2021 Mr. Nolen has been followed by Dr. Mullen and Dr. Colunga since 04/21/2021. He came in with non-ST elevation myocardial infarction. Dr. Colunga yesterday performed an angioplasty and stent on his LAD . Overnight, he has done well. No complications. Vital signs stable, afebrile. Right wrist insert ion site of the catheterization appeared to be intact without any hematoma. He had good radial pulse s. He should go home today on aspirin, beta-blockers, Plavix, and statin. He will follow up with Dr Michelle Colunga in the next 2 weeks. Case was discussed with Dr. Mullen. ANUSHKA/AICHA Voice ID: [id number] Report ID: [id number]
== END 2021-04-26 11:00 | disposition home or self-care (01) | DRG 247 ==
LOC: ER 20:15 → ERHOLD 23:14 → 2ND 04-22 01:45
PROVIDERS: ADMIT Hospitalist; ATTEND Internal Medicine
PROC: 027034Z Dilation of Coronary Artery, One Artery with Drug-eluting Intraluminal Device, Percutaneous Approach (ICD-10-PCS; principal; 2021-04-21)
PROC: 4A023N7 Measurement of Cardiac Sampling and Pressure, Left Heart, Percutaneous Approach (ICD-10-PCS; 2021-04-21)
PROC: B201YZZ Plain Radiography of Multiple Coronary Arteries using Other Contrast (ICD-10-PCS; 2021-04-21)
DX: I21.4 Non-ST elevation (NSTEMI) myocardial infarction (principal); I10 Essential (primary) hypertension; I25.10 Atherosclerotic heart disease of native coronary artery without angina pectoris; R73.03 Prediabetes; Z79.899 Other long term (current) drug therapy; Z20.822 Contact with and (suspected) exposure to COVID-19
CPT/HCPCS: 36415; 71045; 80048; 80061; 81003; 83735; 84132; 84439; 84443; 84484; 85025; 85027; 85049; 85347; 85610; 85730; 92928; 93005; 93306; 93454; 96374; 99285; C1725; C1893; J1644; J2250; J3010; J7030; U0003

== ENCOUNTER 2021-05-22 09:43 | Observation (INO) | payer OTHER ==
--- OUTSIDE RECORDS SUMMARY | 2021-05-22 09:46 | XMS REPORT | Continuity of Care Document ---
:1965 Author Organization [facility] t Address [address] [place] [address] Care Team Providers Name Role Phone UNKNOWN Primary Care Physician Unavailable Problems This patient has no known problems. Allergies, Adverse Reactions, Alerts This patient has no known allergies or adverse reactions. Medications This patient has no known medications. Procedures This patient has no known procedures. Encounters Start End Encounter Admission Attending Care Care Encounter Source Date/Time Date/Time Type Type Clinicians Facility Department ID 2016-12-13 2016-12-13 Outpatient C [facility] [id number] [address] 11:09:00 11:09:00 [facility] Results Test Description Test Time Test Comments Results Result Comments Source TESTOSTERONE 2021-02-04 03:18:15 Test Item Value Reference Range Interpretation Comme nts TESTOSTERONE (test code = 2830) 299 NG/DL 300-890 L UNLESS OTHERWISE INDICATED, ALL TESTING PERFORMED ATCLINICAL PATH [facility], [place] [address] 4 LABORATORY DIRE CTOR: HALEY JETT M.D. CLIA NUMBER [id number] [facility] [place] [place]. [id number] FSH + LH [id number] 03:17:56 Test Item Value Reference Range Interpretation Comments FOLLICLE STIM HORMONE (test code = 5.9 IU/L 1.5-12.4 2700) LUTEINIZING HORMONE (test code = 5.3 IU/L 1.2-8.6 2776) [id number] 03:17:56 Test Item Value Reference Range Interpretation Comments PROLACTIN (test 8.1 NG/ML 4.0-26.0 NOTE: Me thodology is Sanna code = 2800) Jerry Electroch emiluminescence Immunoassay ( ECLIA). Values obtained with d ifferent assays/manufact urers cannot be used interchang eably. Results should not be used as sole basis to e stablish the presence or abs ence of malignancy. TSH, THIRD [id number] 03:17:56 Test Item Value Reference Range Interpretation Comments TSH, THIRD GENERATION (test code 2.490 UIU/ML 0.400-4.100 = 2821) HEPATITIS PANEL, [id number] 04:56:50 Test Item Value Reference Range Interpretation Comments HEPATITIS A IgM (test NON-REACTIVE NON-REACTIVE code = 29999) HEPATITIS B CORE IgM NON-REACTIVE NON-REACTIVE (test code = 4644) HEPATITIS B SURF AG NON-REACTIVE NON-REACTIVE (test code = 2739) HEPATITIS C ANTIBODY NON-REACTIVE NON-REACTIVE (test code = 4675) INTERPRETATION (NOTE) Hepatiti s A HEPATITIS A: (test serology shows no code = 2552) evidence of acu te hepatitis A. INTERPRETATION (NOTE) Hepatiti s B HEPATITIS B: (test serology shows no code = 14711) evidence of ac [place] hepatitis B and no indication of exposure to hepatitis B vir us in the previous si xto eight months. INTERPRETATION (NOTE) Hepatiti s C HEPATITIS C: (test serology shows no code = 57385) evidence of ex posure to hepatitisC v irus at this time. It can take up to 12 months after exposure tothe hepatitis C vir us for antibodies to become detectab le in the blood i n certain patient s. UNLESS OTHE RWISE INDICATED, ALL TESTING PERFORM ED ATCLINICAL PATH [facility], [place]. [address] [place] [address] 4 GERMAN TUTOR: HALEY JETT M.D. CLIA NUMBER [id number] [facility] [place]EDIT[place] N O. [id number] HEMOGLOBIN [id number] 04:39:16 Test Item Value Reference Range Interpretation Comments HEMOGLOBIN A1c (test code = 44311) 6.1 % 4.2-5.6 H COMPREHENSIVE METABOLIC [id number] 04:05:39 Test Item Value Reference Range Interpretation Comments GLUCOSE (test code = 75 MG/DL 70-99 2216) BUN (test code = 16 MG/DL 6-20 2207) CREATININE (test 0.99 MG/DL 0.80-1.40 EFFECTIVE code = 2214) 01/17/2021, [facility] HAS IMPLEMENTED THE NKF-ASN RECOMME NDED KD-EPI EGF R REFIT CALCULATI ON THAT DOES NOT INCLUDE A COEFFICIENT FOR RACE. FOR MORE INFORMATION, SE E ANNOUNCEMENT [email or web address] eGFR (2020 CKD-EPI) 89 ML/MIN/1.73 >60 (test code = 39132) CALC BUN/CREAT (test 16 RATIO 6-28 code = 2235) SODIUM (test code = 143 MEQ/L 599-367 8041) POTASSIUM (test code 4.2 MEQ/L 3.5-5.4 = [...] message] (test code = 2207) The syste [employer] (TT[employer]) which generated this result transmit anthony reference range : <=1.2. The refe rence range was not u sed to interpret th is result as normal/abnormal . ALKALINE PHOSPHATASE 66 U/L 40-123 (test code = 2204) AST (test code = 18 U/L 9-50 2217) ALT (test code = 20 U/L 5-50 2218) LIPID [id number] 04:05:39 Test Item Value Reference Range Interpretation [...] MOREINFORMATION , SEE CLIENT ANNOUNCE MENT AT [email or web address] RISK RATIO LDL/HDL 2.71 RATIO <3.55 (test code = 2238) CBC W/AUTO DIFF WITH [id number] 02:59:22 Test Item Value Reference Range Interpretation [...] LL BE ELIMINATED REDUNDANT TOABS OLUTE COUNTS.SEE [email or web address].[email or web address] /todd l_CBC_reporting _upda te LYMPHOCYTES (test 33.3 % code = 1010) MONOCYTES (test code 6.1 % = 1011) EOSINOPHILS (test 8.1 % code = 1012) BASOPHILS (test code 0.7 % = 1013) IMMATURE GRANYLOCYTES 0.2 % (test code = 1036) NUCLEATED RBCS (test 0.0 /100 See_Comment [Autom ated message] code = 1065) WBC'S The system [employer] generated this result transmit anthony reference range [...] RBCS 0.02 K/UL 0.00-0.11 (test code = 42161)
--- NOTE | 2021-05-22 10:54 | ER ---
Nurse's Notes [facility] Name: Carlos Celis Age: 56 yrs Sex: Male : 1965 Arrival Date: 05/22/2021 Time: 09:45 Bed 19 Private MD: Casper Colunga Diagnosis: Chest pain, unspecified;Angina pectoris, unspecified;Type 2 diabetes mellitus with hyperglycemia;Essential (primary) hypertension Presentation: 05/22 10:32 Chief complaint: Patient states: pt presented to ED reporting high blood pressure and teran chest pain-recently had a heart stent placed. Chief complaint:. Coronavirus screen: Vaccine status: Patient reports receiving the 2nd dose of the covid vaccine. Ebola Screen: Patient denies travel to an Ebola-affected area in the 21 days before illness onset. Initial Sepsis Screen: Does the patient meet any 2 criteria? HR > 90 bpm. Does the patient have a suspected source of infection? No. Patient's initial sepsis screen is negative. Risk Assessment: Do you want to hurt yourself or someone else? Patient reports no desire to harm self or others. Onset of symptoms was May 22, 2021. 10:32 Method Of Arrival: Ambulatory teran 10:32 Acuity: SYLVIE 3 teran Triage Assessment: 10:35 General: Appears in no apparent distress. Behavior is calm, cooperative. Pain: teran Complains of pain in chest. Cardiovascular: Reports chest pain, high blood pressure. Historical: - Home Meds: 10:34 losartan 25 mg Oral tab [Active]; teran 13:15 Brilinta 90 mg oral tab 1 tab 2 times per day [Active]; metoprolol tartrate 25 mg Oral teran tab 1 tab 2 times per day [Active]; aspirin 81 mg Oral tab daily [Active]; atorvastatin 40 mg oral tab 1 tab once daily [Active]; - PMHx: 10:35 Hypertensive disorder; pre-diabetic; teran - PSHx: 10:35 Appendectomy; Stented artery; teran - Immunization history:: Adult Immunizations up to date. - Social history:: Smoking status: Patient denies any tobacco usage or history of. Screenin:36 Abuse screen: Denies threats or abuse. Denies injuries from another. Nutritional teran screening: No deficits noted. Tuberculosis screening: No symptoms or risk factors identified. Fall Risk None identified. Assessment: 10:37 Pain: Pain radiates to left breast Pain began gradually. teran 11:22 General: Appears in no apparent distress. Behavior is calm, cooperative. teran Cardiovascular: Reports chest pain. 05/23 13:54 Reassessment: report given to Nurse Yobani pt went to 404. Vital Signs: 05/22 10:32 BP 181 / 107; Pulse 67; Resp 17; Temp 97.9; Pulse Ox 99% on R/A; Weight 99.79 kg; teran Height 5 ft. 10 in. (177.80 cm); 13:30 BP 176 / 96; Pulse 60; Resp 19; Pulse Ox 99% ; teran 14:00 BP 179 / 100; Pulse 102; Resp 19; Pulse Ox 99% on R/A; teran 15:00 BP 172 / 104; Pulse 66; Resp 18; Pulse Ox 99% on R/A; teran 16:00 BP 174 / 103; Pulse 65; Resp 18; Pulse Ox 99% on R/A; teran 17:00 BP 178 / 95; Pulse 68; Resp 18; Pulse Ox 98% on R/A; teran 18:00 BP 162 / 96; Pulse 64; Resp 18; Pulse Ox 98% on R/A; teran 10:32 Body Mass Index 31.57 (99.79 kg, 177.80 cm) ED Course: 09:45 Patient arrived in ED. as 09:45 Casper Colunga MD is Private Physician. as 10:30 Edi He MD is Attending Physician. [facility] 10:32 Julia Purcell, RN is Primary Nurse. teran 10:34 Triage completed. teran 10:35 Arm band placed on. teran 10:36 Patient has correct armband on for positive identification. Bed in low position. teran environmental monitoring technician on. Pulse ox on. 10:36 No provider procedures requiring assistance completed. Patient maintains SpO2 teran saturation greater than 95% on room air. 10:52 Augusto Zambrano MD is Hospitalizing Provider. vivek 11:22 SARS-COV-2 RT PCR (Document "Date of Onset" if Symptomatic) Sent. teran 11:27 XRAY Chest (1 view) In Process Unspecified. EDMS 11:44 Urinalysis Sent. 05/23 13:54 Patient admitted, IV remains in place. teran Administered Medications: 05/22 11:41 Drug: Zofran (Ondansetron) 4 mg Route: IVP; Site: left antecubital; teran 11:42 Follow up: Response: No adverse reaction teran : Drug: Aspirin 81 mg Route: PO; teran : Follow up: Response: No adverse reaction teran : Drug: NS 0.9% 1000 ml Route: IV; Rate: 125 ml/hr; Site: left antecubital; teran 11:42 Drug: Lopressor (metoprolol TARTRATE)) 25 mg Route: PO; teran 43 Follow up: Response: No adverse reaction teran : Drug: Lovenox (enoxaparin) 1 mg/kg Route: Sub-Q; Site: right lower abdomen; teran 1143 Follow up: Response: No adverse reaction teran : Drug: morphine 4 mg Route: IVP; Site: left antecubital; teran 43 Follow up: Response: No adverse reaction teran 16:09 CANCELLED (errorr): [place] (HYDROcodone-acetaminophen) 5 mg-325 mg 2 tabs PO once; RASS teran on ADMIN: Combtv4, Very Agttd3, Agttd2, Rstlss1, AlertClm0, Drwsy-1, Lt Sdtn-2, Mod Sdtn-3, Dp Sdtn-4, UnArsble-5 Outcome: 10:54 Decision to Hospitalize by Provider. vivek 05/23 13:53 Admitted to Tele accompanied by tech. teran Condition: good Instructed on the need for admit. 13:54 Patient left the ED. teran Signatures: Dispatcher [employer] Edi Montes MD MD cha Martinez, Amelia as Au-StagerJulia RN RN teran Corrections: (The following items were deleted from the chart) 05/22 13:25 10:34 Allergies: No Known Allergies; teran teran 13:25 10:34 Home Meds: amlodipine 2.5 mg tab; teran teran 13: 10:34 Home Meds: hydrochlorothiazide 12.5 mg Oral cap; teran teran
--- NOTE | 2021-05-22 10:55 | EDPHYS ---
Physician Documentation [facility] Name: Carlos Celis Age: 56 yrs Sex: Male : 1965 Arrival Date: 05/22/2021 Time: 09:45 Bed 19 Private MD: Casper Colunga ED Physician Edi He HPI: 05/22 10:48 This 56 yrs old Male presents to ER via Ambulatory with complaints of High vivek Blood Pressure, Chest Pain. 10:48 The patient has elevated blood pressure and discovered this at home, with a home vivek device. Onset: The symptoms/episode began/occurred just prior to arrival, this morning. Modifying factors: The symptoms are aggravated by activity, The symptoms are alleviated by remaining still. Associated signs and symptoms: Pertinent positives: chest pain, dyspnea. Severity of symptoms: At its worst the blood pressure was moderate, in the emergency department the blood pressure is unchanged. The patient has experienced similar episodes in the past, several times. Historical: - Home Meds: 10:34 losartan 25 mg Oral tab [Active]; teran 13:15 Brilinta 90 mg oral tab 1 tab 2 times per day [Active]; metoprolol tartrate 25 mg Oral teran tab 1 tab 2 times per day [Active]; aspirin 81 mg Oral tab daily [Active]; atorvastatin 40 mg oral tab 1 tab once daily [Active]; - PMHx: 10:35 Hypertensive disorder; pre-diabetic; teran - PSHx: 10:35 Appendectomy; Stented artery; teran - Immunization history:: Adult Immunizations up to date. - Social history:: Smoking status: Patient denies any tobacco usage or history of. ROS: 10:48 Constitutional: Negative for fever, chills, and weight loss, Eyes: Negative for injury, vivek pain, redness, and discharge, ENT: Negative for injury, pain, and discharge, Neck: Negative for injury, pain, and swelling, Abdomen/GI: Negative for abdominal pain, nausea, vomiting, diarrhea, and constipation, Back: Negative for injury and pain, : Negative for injury, bleeding, discharge, and swelling, MS/Extremity: Negative for injury and deformity, Skin: Negative for injury, rash, and discoloration, Neuro: Negative for headache, weakness, numbness, tingling, and seizure, Psych: Negative for depression, anxiety, suicide ideation, homicidal ideation, and hallucinations, Allergy/Immunology: Negative for hives, rash, and allergies, Endocrine: Negative for neck swelling, polydipsia, polyuria, polyphagia, and marked weight changes, Hematologic/Lymphatic: Negative for swollen nodes, abnormal bleeding, and unusual bruising. 10:48 Cardiovascular: Positive for chest pain, of the chest. 10:48 Respiratory: Positive for cough, shortness of breath, at rest. Exam: 10:48 Constitutional: This is a well developed, well nourished patient who is awake, alert, vivek and in no acute distress. Head/Face: Normocephalic, atraumatic. Eyes: Pupils equal round and reactive to light, extra-ocular motions intact. Lids and lashes normal. Conjunctiva and sclera are non-icteric and not injected. Cornea within normal limits. Periorbital areas with no swelling, redness, or edema. ENT: Nares patent. No nasal discharge, no septal abnormalities noted. Tympanic membranes are normal and external auditory canals are clear. Oropharynx with no redness, swelling, or masses, exudates, or evidence of obstruction, uvula midline. Mucous membranes moist. Neck: Trachea midline, no thyromegaly or masses palpated, and no cervical lymphadenopathy. Supple, full range of motion without nuchal rigidity, or vertebral point tenderness. No Meningismus. Chest/axilla: Normal chest wall appearance and motion. Nontender with no deformity. No lesions are appreciated. Cardiovascular: Regular rate and rhythm with a normal S1 and S2. No gallops, murmurs, or rubs. Normal PMI, no JVD. No pulse deficits. Respiratory: Lungs have equal breath sounds bilaterally, clear to auscultation and percussion. No rales, rhonchi or wheezes noted. No increased work of breathing, no retractions or nasal flaring. Abdomen/GI: Soft, non-tender, with normal bowel sounds. No distension or tympany. No guarding or rebound. No evidence of tenderness throughout. Back: No spinal tenderness. No costovertebral tenderness. Full range of motion. Male : Normal genitalia with no discharge or lesions. Skin: Warm, dry with normal turgor. Normal color with no rashes, no lesions, and no evidence of cellulitis. MS/ Extremity: Pulses equal, no cyanosis. Neurovascular intact. Full, normal range of motion. Neuro: Awake and alert, GCS 15, oriented to person, place, time, and situation. Cranial nerves II-XII grossly intact. Motor strength 5/5 in all extremities. Sensory grossly intact. Cerebellar exam normal. Normal gait. Psych: Awake, alert, with orientation to person, place and time. Behavior, mood, and affect are within normal limits. 10:48 Musculoskeletal/extremity: DVT Exam: No signs of deep vein thrombosis. no pain, no swelling, no tenderness, negative Homans' sign noted on exam, no appreciated bluish discoloration, no erythema, no increased warmth. 10:51 ECG was reviewed by the Attending Physician. vivek 11:39 ECG was reviewed by the Attending Physician. [facility] Vital Signs: 10:32 BP 181 / 107; Pulse 67; Resp 17; Temp 97.9; Pulse Ox 99% on R/A; Weight 99.79 kg; teran Height 5 ft. 10 in. (177.80 cm); 13:30 BP 176 / 96; Pulse 60; Resp 19; Pulse Ox 99% ; teran 14:00 BP 179 / 100; Pulse 102; Resp 19; Pulse Ox 99% on R/A; teran 15:00 BP 172 / 104; Pulse 66; Resp 18; Pulse Ox 99% on R/A; teran 16:00 BP 174 / 103; Pulse 65; Resp 18; Pulse Ox 99% on R/A; teran 17:00 BP 178 / 95; Pulse 68; Resp 18; Pulse Ox 98% on R/A; teran 18:00 BP 162 / 96; Pulse 64; Resp 18; Pulse Ox 98% on R/A; teran 10:32 Body Mass Index 31.57 (99.79 kg, 177.80 cm) teran MDM: 10:30 Patient medically screened. vivek 10:49 Differential diagnosis: abnormal EKG, acute myocardial infarction, acute pericarditis, vivek anxiety, coronary artery disease chest wall pain, congestive heart failure Cholelithiasis costochondritis, hypertensive crisis, esophagitis, gastritis. HEART Score: History: Highly Suspicious (2), ECG: Non specific repolarization disturbance / LBTB / PM (1), Age: > 45 and < 65 years (1), Risk Factors: > or = 3 Risk factors for atherosclerotic disease (2), [Hypercholesterolemia] [Hypertension] [DM] [+ Family HX] [Obesity] Troponin: < or = 1 x Normal Limit (0). The patient was given aspirin in the Emergency Department. The patient's deep vein thrombosis risk score was calculated as follows: Total Score: 0. This patient was found to be at low risk for a deep vein thrombosis by using the Well's assessment criteria. The patient's pulmonary embolism risk score was calculated as follows: Total Score: 0-2 points. This patient was found to be at low risk for a pulmonary embolism by using the Well's assessment criteria. HARI Risk Score: 1 - Three or more CAD risk factors, 1- Known CAD, 1 - ASA use in past 7 days, 1 - Recent [<24hrs] Severe Angina, TOTAL SCORE = 4. Data reviewed: vital signs, nurses notes, lab test result(s), EKG, radiologic studies, plain films. Data interpreted: conveyor monitor: rate is 67 beats/min, rhythm is regular, Pulse oximetry: on room air is 99 %. Test interpretation: by ED physician or midlevel provider: ECG, plain radiologic studies. Counseling: I had a detailed discussion with the patient and/or guardian regarding: the historical points, exam findings, and any diagnostic results supporting the discharge/admit diagnosis, lab results, radiology results, the need for further work-up and treatment in the hospital. 05/22 10:31 Order name: Basic Metabolic Panel; Complete Time: 11:21 [facility] 05/22 10:31 Order name: CBC with Diff; Complete Time: 11:14 [facility] 05/22 10:31 Order name: LFT's; Complete Time: 11:21 [facility] 05/22 10:31 Order name: Magnesium; Complete Time: 11:21 [facility] 05/22 10:31 Order name: NT PRO-BNP; Complete Time: 11:21 [facility] 05/22 10:31 Order name: PT-INR; Complete Time: 16:01 [facility] 05/22 10:31 Order name: Troponin HS; Complete Time: 11:21 [facility] 05/22 10:31 Order name: Lipase; Complete Time: 11:21 [facility] 05/22 10:31 Order name: SARS-COV-2 RT PCR (Document "Date of Onset" if Symptomatic); Complete Time: [facility] 16:05/22 11:16 Order name: Basic Metabolic Panel [facility] 05/22 11:16 Order name: Basic Metabolic Panel [facility] 05/22 11:16 Order name: Comprehensive Metabolic Panel [facility] 05/22 11:16 Order name: Comprehensive Metabolic Panel [facility] 05/22 11:16 Order name: Lipid Profile [facility] 05/22 10:31 Order name: XRAY Chest (1 view); Complete Time: 16:01 [facility] 05/22 11:16 Order name: Lipid Profile [facility] 05/22 11:16 Order name: PTT, Activated Partial Thromb [facility] 05/22 11:16 Order name: PTT, Activated Partial Thromb [facility] 05/22 11:16 Order name: Urinalysis [facility] 05/22 11:50 Order name: Urine Dipstick-Ancillary; Complete Time: 16:01 [facility] 05/22 16:24 Order name: Troponin High Sensitivity [facility] 05/22 20:15 Order name: Glucose, Ancillary Testing [facility] 05/22 21:10 Order name: Troponin High Sensitivity [facility] 05/23 06:13 Order name: Glucose, Ancillary Testing [facility] 05/22 10:31 Order name: EKG; Complete Time: 10:32 [facility] 05/22 10:31 Order name: Cardiac monitoring; Complete Time: 11:28 [facility] 05/22 10:31 Order name: EKG - Nurse/Tech; Complete Time: 11:28 [facility] 05/22 10:31 Order name: IV Saline Lock; Complete Time: 11:28 [facility] 05/22 10:31 Order name: Labs collected and sent; Complete Time: 11:28 [facility] 05/22 10:31 Order name: O2 Per Protocol; Complete Time: 11:28 [facility] 05/22 10:31 Order name: O2 Sat Monitoring; Complete Time: 11:28 [facility] 05/22 10:31 Order name: Urine Dipstick-Ancillary (obtain specimen); Complete Time: 11:44 [facility] 05/22 11:16 Order name: Heart Healthy [facility] 05/22 11:16 Order name: Patient Safety Orders [facility] 05/22 11:22 Order name: EKG; Complete Time: 11:23 [facility] 05/22 11:22 Order name: EKG - Nurse/Tech; Complete Time: 11:44 [facility] EC:51 Rate is 63 beats/min. Rhythm is regular. QRS [place] is Normal. QRS interval is normal. QT vivek interval is normal. No Q waves. T waves are Inverted in leads V1, V2, V3, V4, V5. No ST changes noted. Clinical impression: Abnormal EKG without significant change and No evidence of ischemia. Interpreted by me. Reviewed by me. 11:39 Rate is 63 beats/min. Rhythm is regular. QRS [place] is Normal. [place] interval is normal. QRS vivek interval is normal. QT interval is normal. No Q waves. T waves are Inverted in leads V1, V2, V3, V4, V5. No ST changes noted. Clinical impression: Abnormal EKG without significant change. Interpreted by me. Reviewed by me. Administered Medications: 11:41 Drug: Zofran (Ondansetron) 4 mg Route: IVP; Site: left antecubital; teran 11:42 Follow up: Response: No adverse reaction teran 11:42 Drug: Aspirin 81 mg Route: PO; teran 11:44 Follow up: Response: No adverse reaction teran 11:42 Drug: NS 0.9% 1000 ml Route: IV; Rate: 125 ml/hr; Site: left antecubital; teran 11:42 Drug: Lopressor (metoprolol TARTRATE)) 25 mg Route: PO; teran 11:43 Follow up: Response: No adverse reaction teran 11:42 Drug: Lovenox (enoxaparin) 1 mg/kg Route: Sub-Q; Site: right lower abdomen; teran 11:43 Follow up: Response: No adverse reaction teran 11:42 Drug: morphine 4 mg Route: IVP; Site: left antecubital; teran 11:43 Follow up: Response: No adverse reaction teran 16:09 CANCELLED (errorr): Hammond (HYDROcodone-acetaminophen) 5 mg-325 mg 2 tabs PO once; RASS teran on ADMIN: Combtv4, Very Agttd3, Agttd2, Rstlss1, AlertClm0, Drwsy-1, Lt Sdtn-2, Mod Sdtn-3, Dp Sdtn-4, UnArsble-5 Disposition Summary: 05/22/21 10:54 Hospitalization Ordered Hospitalization Status: Inpatient Admission vivek Provider: Augusto Zambrano vivek Condition: Fair vivek Problem: new vivek Symptoms: have improved vivek Bed/Room Type: Standard vivek Location: Telemetry/MedSurg (Inpatient)(05/23/21 12:49) bd Room Assignment: 405(05/23/21 12:49) bd Diagnosis - Chest pain, unspecified vivek - Angina pectoris, unspecified vivek - Type 2 diabetes mellitus with hyperglycemia vivek - Essential (primary) hypertension vivek Forms: - Medication Reconciliation Form vivek - SBAR form vivek Signatures: Dispatcher [employer] Janki Ye Corey, MD MD cha Garcia, Cindy, RN RN Lucia-KaleighrJulia RN RN Corrections: (The following items were deleted from the chart) 11: 10:54 Telemetry/MedSurg (Inpatient) vivek vivek 11: 10:54 vivek [facility] 11: 11:29 EKG - Nurse/Tech ordered. teran teran 13:25 10:34 Allergies: No Known Allergies; teran teran 13: 10:34 Home Meds: amlodipine 2.5 mg tab; teran teran 13:25 10:34 Home Meds: hydrochlorothiazide 12.5 mg Oral cap; teran teran 16:09 16:08 Hammond (HYDROcodone-acetaminophen) 5 mg-325 mg 2 tabs PO once; RASS on ADMIN: teran Combtv4, Very Agttd3, Agttd2, Rstlss1, AlertClm0, Drwsy-1, Lt Sdtn-2, Mod Sdtn-3, Dp Sdtn-4, UnArsble-5 ordered. teran 20:47 11:22 Intensive Care Unit [facility] 20:47 11:22 [facility] 05/23 12:49 05/22 20:47 [facility] ER HOLD cg bd 05/23 12:49 05/22 20:47 ERHOLD- cg bd
[2021-05-22 11:03] LABS: Absolute Lymphocytes (CBC) 1.7 K/uL (0.7-4.9); Hematocrit 40.4 % (39.6-49.0); Lymphocytes % 31.2 % (15.3-44.8); MPV 7.5 fL (7.6-11.3); RBC Red Blood Cell Count 4.38 M/uL (4.33-5.43)
--- NOTE | 2021-05-22 11:09 | P.HP ---
Certification for Inpatient Patient admitted to: Observation With expected LOS: <2 Midnights Patient will require the following post-hospital care: None Practitioner: I am a practitioner with admitting privileges, knowledge of patient current condition, hospital course, and medical plan of care. Services: Services provided to patient in accordance with Admission requirements found in Title 42 Section 412.3 of the Code of Federal Regulations Patient History Date of Service: 05/22/21 Reason for admission: Chest pain. History of Present Illness: 56-year-old male patient with medical history significant for hypertension, diabetes type 2, hyperlipidemia, coronary artery disease status post stent placement x1 about 3 weeks ago who came to the ED with complaint of chest discomfort and poorly controlled blood pressure. Chest discomfort was noted notably in the mid chest region also with poorly controlled blood pressure. No overt episode of nausea, vomiting, diarrhea, fever, chills given. In the ED he had lab work done and imaging studies there were not very concerning. EKG was not concerning for STEMI. He had reported compliance to his home medications. His systolic blood pressure was actually noted to be more than 180s so he was asked to admit evaluation for ACS work-up. Allergies No Known Allergies Allergy (Unverified 04/22/21 01:54) Home Medications: Losartan Potassium 25 mg PO DAILY 04/23/21 Aspirin [Aspirin EC 81 MG] 81 mg PO DAILY #30 tablet. 04/26/21 Atorvastatin Calcium [Lipitor] 40 mg PO BEDTIME #30 tab 04/26/21 Metoprolol Tartrate [Lopressor*] 25 mg PO BID 6AM 6PM #60 tab 04/26/21 Ticagrelor [Brilinta] 90 mg PO BID #60 tablet 04/26/21 - Past Medical/Surgical History Diabetic: Yes -: Hypertension -: Appendectomy Psychosocial/ Personal History: Patient lives at home with family - Social History Alcohol use: No CD- Drugs: No Caffeine use: No Review of Systems General: Unremarkable Eyes: Unremarkable ENT: Unremarkable Respiratory: Unremarkable Cardiovascular: Chest Pain Gastrointestinal: Unremarkable Genitourinary: Unremarkable Musculoskeletal: Unremarkable Integumentary: Unremarkable Neurological: Unremarkable Physical Examination - Physical Exam General: Alert, Oriented x3 HEENT: Atraumatic, Normocephalic Neck: Supple Respiratory: Normal air movement Cardiovascular: Regular rate/rhythm, Normal S1 S2 Gastrointestinal: Soft and benign Musculoskeletal: No swelling Neurological: Normal speech, Normal strength at 5/5 x4 extr Assessment and Plan - Plan 1. Chest pain: There is significant concerns for possible ACS in view of patient's recent cardiac intervention. We will trend troponin and have him continued on telemetry. We will continue on as needed morphine for pain control. Continue aspirin and Brilinta. Refuse Laborer to evaluate. 2. Hypertension: Poorly controlled blood pressure with systolic in the 180s. We will continue home antihypertensive medication and him to achieve goal blood pressure goal of 130/80 mmHg or less 3.Diabetes type 2: We will continue sliding scale insulin for glucose control on carb restricted diet. 4. Hyperlipidemia: We will continue statin therapy. prophylaxis: lovenox for DVT. Code status: Full code. - Advance Directives Does patient have a Living Will: No Does patient have a Durable POA for Healthcare: No
[2021-05-22] MEDS ORDERED: ONDANSETRON 4 MG/2 ML VIAL IV PRN (11:10)
[2021-05-22 11:18] LABS: Albumin 3.8 g/dL (3.4-5.0); Bilirubin Direct 0.1 mg/dL (0-0.2); Bilirubin Total 0.5 mg/dL (0.2-1.0); Magnesium 2.5 mg/dL (1.8-2.4); Potassium 3.9 mmol/L (3.5-5.1); Protein, Total 7.9 g/dL (6.4-8.2)
[2021-05-22 11:20] LABS: Troponin High Sensitivity 67.2 pg/mL (<58.9)
[2021-05-22 11:30] LABS: Protime INR 0.99
[2021-05-22] MEDS ORDERED: INSULIN -REGULAR HUMAN 50 UNIT/0.5 ML ML SQ SCH (11:30)
[2021-05-22] MEDS ORDERED: ASPIRIN 81 MG CHEWABLE TABLET ONE (11:35)
[2021-05-22] MEDS ORDERED: NA CHLORIDE 0.9% 1,000 ML ONE (11:36)
[2021-05-22] MEDS ORDERED: ONDANSETRON 4 MG/2 ML VIAL ONE (11:36)
[2021-05-22] MEDS ORDERED: ENOXAPARIN 100 MG/ML SYR SQ ONE (11:36)
[2021-05-22] MEDS ORDERED: METOPROLOL TAR 25 MG TAB ONE (11:36)
[2021-05-22] MEDS ORDERED: MORPHINE 4 MG/ML SYR ONE (11:36)
[2021-05-22 11:50] LABS: Urine Blood Negative (Negative); Urine Glucose Negative (Negative); Urine Protein Negative (Negative); Urine pH 6.5 (5.0-7.0)
--- NOTE | 2021-05-22 11:51 | RAD REPORT ---
EXAM DESCRIPTION: Ana Lilia Single View05/22/2021 11:25 am CLINICAL HISTORY: Chest pain COMPARISON: April 2021 FINDINGS: The lungs appear clear of acute infiltrate. The heart is normal size IMPRESSION: No acute abnormalities displayed
[2021-05-22] MEDS ORDERED: ACETAMINOPHEN 325 MG TABLET PO PRN (11:55)
[2021-05-22] MEDS ORDERED: LOSARTAN POTASSIUM 50 MG TABLET PO ONE (14:30)
[2021-05-22] MEDS ORDERED: LOSARTAN POTASSIUM 50 MG TABLET ONE ×2 (15:48→18:24)
[2021-05-22] MEDS ORDERED: LORazepam 2 MG/ML VIAL IV ONE (16:48)
[2021-05-22 17:00] VITALS: BMI 31.4
[2021-05-22] MEDS: METOPROLOL TAR 25 MG TAB PO SCH (18:00)
[2021-05-22] MEDS: LABETALOL 20 MG/4ML SYRINGE IV PRN (18:11)
[2021-05-22] MEDS ORDERED: LABETALOL 20 MG/4ML SYRINGE IV ONE (18:24)
[2021-05-22] MEDS ORDERED: TICAGRELOR 90 MG TABLET PO ONE (19:43)
[2021-05-22] MEDS ORDERED: ATORVASTATIN 20 MG TAB ONE (19:44)
[2021-05-22] MEDS: TICAGRELOR 90 MG TABLET PO SCH (20:15)
[2021-05-22] MEDS ORDERED: LORazepam 2 MG/ML VIAL ONE (20:24)
[2021-05-22] MEDS ORDERED: ATORVASTATIN 40 MG TAB PO SCH (21:00)
[2021-05-23] MEDS ORDERED: ACETAMINOPHEN 325 MG TABLET ONE (01:24)
[2021-05-23 04:18] LABS: Albumin 3.6 g/dL (3.4-5.0); Bilirubin Total 0.6 mg/dL (0.2-1.0); Potassium 3.9 mmol/L (3.5-5.1); Protein, Total 7.4 g/dL (6.4-8.2)
[2021-05-23] MEDS: LABETALOL 20 MG/4ML SYRINGE IV PRN (04:54)
[2021-05-23] MEDS ORDERED: LABETALOL 20 MG/4ML SYRINGE IV ONE (04:54)
[2021-05-23] MEDS: METOPROLOL TAR 25 MG TAB PO SCH (06:00)
[2021-05-23] MEDS ORDERED: METOPROLOL TAR 25 MG TAB ONE (06:29)
[2021-05-23 08:26] VITALS: TEMP 98.6
[2021-05-23] MEDS: TICAGRELOR 90 MG TABLET PO SCH (08:27)
[2021-05-23] MEDS ORDERED: ASPIRIN EC 81 MG TAB PO SCH (09:00)
[2021-05-23] MEDS ORDERED: LOSARTAN POTASSIUM 50 MG TABLET PO SCH (09:00)
[2021-05-23] MEDS ORDERED: ENOXAPARIN 40 MG/0.4 ML SQ SCH (09:00)
[2021-05-23] MEDS ORDERED: HEPA 1000U/500MLS 2,000 UNIT/1,000 ML BAG IV ONE (09:32)
--- NOTE | 2021-05-23 10:01 | P.PN ---
Subjective Date of Service: 05/23/21 Subjective: No new changes, No C/O voiced, Improving cath today Review of Systems 10-point ROS is otherwise unremarkable Physical Examination - Vital Signs Temperature: 98.6 F Blood Pressure: 137/66 Pulse: 83 Respirations: 17 Pulse Ox (%): 98 - Physical Exam General: Alert, In no apparent distress HEENT: Atraumatic, PERRLA, EOMI Neck: Supple, JVD not distended Respiratory: Clear to auscultation bilaterally, Normal air movement Cardiovascular: Regular rate/rhythm, Normal S1 S2 Gastrointestinal: Normal bowel sounds, No tenderness Musculoskeletal: No tenderness Integumentary: No rashes Neurological: Normal speech, Normal tone, Normal affect Lymphatics: No axilla or inguinal lymphadenopathy - Studies Laboratory Data (last 24 hrs) 05/22/21 10:51: PT 11.8, INR 0.99 05/22/21 10:51: WBC 5.4, Hgb 13.8, Hct 40.4, Plt Count 176 05/22/21 10:51: Sodium 139, Potassium 3.9, BUN 18, Creatinine 1.09, Glucose 108 H, Magnesium 2.5 H, Total Bilirubin 0.5, AST 17, ALT 37, Alkaline Phosphatase 78, Lipase 218 Medications List Reviewed: Yes Assessment & Plan - Problems (Diagnosis) (1) Unstable angina Current Visit: Yes Status: Acute (2) History of coronary artery disease Current Visit: Yes Status: Acute (3) DM2 (diabetes mellitus, type 2) Current Visit: Yes Status: Acute (4) HTN (hypertension) Current Visit: Yes Status: Acute (5) Hyperlipidemia Current Visit: Yes Status: Acute - Advance Directives Does patient have a Living Will: No Does patient have a Durable POA for Healthcare: No
[2021-05-23] MEDS ORDERED: HEPARIN 5000 UNIT/ML 1 ML VIAL ONE (10:33)
[2021-05-23] MEDS ORDERED: FENTANYL CITR 100 MCG/2 ML ONE (10:33)
[2021-05-23] MEDS ORDERED: MIDAZOLAM HCL 2 MG/2 ML INJ ONE (10:33)
[2021-05-23] MEDS ORDERED: VERAPAMIL HCL 10 MG/4 ML VIAL IV ONE (10:33)
[2021-05-23] MEDS ORDERED: HEPARIN 10,000 UNIT/10 ML VIAL IV ONE (10:34)
[2021-05-23] MEDS ORDERED: ATROPINE SULF 1 MG/10 ML SYR IV ONE (10:34)
[2021-05-23] MEDS ORDERED: NA CHLORIDE 0.9% 500 ML ONE (11:53)
[2021-05-23 15:27] VITALS: BP 134/82; O2SAT 94
--- NOTE | 2021-05-24 00:01 | OP ---
Date of Procedure: 05/23/2021 Surgeon: DEBBIE ALCOCER Procedure Performed: Selective coronary angiogram. Indication: Non-ST elevation myocardial infarction. Access: Right radial artery 6-Mauritian closed with TR band. Anesthesia: Total sedation time was 20 minutes. Bleeding: Less than 10 mL. Complications: None. Description Of Procedure: After risks, benefits, and alternatives were explained, the patient agreed to the procedure and signed informed consent. The patient was brought into cardiac catheterization laboratory, prepped and draped in usual sterile fashion. We accessed right radial artery using pedia tric micropuncture kit and placed a 6-Mauritian slender sheath and took a 5-Mauritian [place] 4.0 catheter in to the aortic root, engaged left main, right coronary artery, took standard views and then removed th e catheter and sheath, placed TR band with good hemostasis. Findings: 1.Left main; large and normal. 2.LAD: Widely patent proximal LAD stent. No ISR. This stent is about 30% stenosis, which is known from last time and HARI-3 flow and artery diagonal branches are normal. 3.Left circumflex is large and dominant with luminal irregularities. 4.Ramus intermedius with proximal 40% stenosis. 5.RCA small nondominant. No significant disease. Conclusion: 1.Widely patent LAD stent. 2.Mild coronary artery disease elsewhere as outlined above. Plan: Continue aspirin, Plavix, high-dose statin. Follow up with me in the office in 4 weeks. SR/MODL Voice ID: [id number] Report ID: [id number]
== END 2021-05-23 15:20 | disposition home or self-care (01) ==
LOC: ER 09:43 → OBSVTOIN 11:38 → ERHOLD 11:38 → INTOOBSV 11:38 → 4TH 05-23 13:12
PROVIDERS: ADMIT Internal Medicine Nephrology; ATTEND Hospitalist
DX: I25.110 Atherosclerotic heart disease of native coronary artery with unstable angina pectoris (principal); T82.855A Stenosis of coronary artery stent, initial encounter; I10 Essential (primary) hypertension; E78.5 Hyperlipidemia, unspecified; E11.65 Type 2 diabetes mellitus with hyperglycemia; I25.2 Old myocardial infarction; Z95.5 Presence of coronary angioplasty implant and graft; Z79.82 Long term (current) use of aspirin; Z79.899 Other long term (current) drug therapy; Z20.822 Contact with and (suspected) exposure to COVID-19
CPT/HCPCS: 93005 ×3; 85025; 80048; 36415; 83735; 85610; 80061; 82947 ×2; 80076; 85730; 81003; 84484 ×3; 83690; 80053; 83880; 71045; 93454; 96375; 96372; 96374; 99285; U0003; C1893; Q9967; J1644 ×2; J2250; J3010; J1650; J7040; J7030; J2405; G0378 ×3

== ENCOUNTER 2021-07-08 16:27 | Observation (INO) | payer OTHER ==
--- OUTSIDE RECORDS SUMMARY | 2021-07-08 16:31 | XMS REPORT | Continuity of Care Document ---
:1965 Author Organization [facility] t Address [address] [place] [address] Care Team Providers Name Role Phone UNKNOWN [...] Facility Department ID 2016-12-13 2016-12-13 Outpatient C [facility] [id number] 11:09:00 11:09:00 [facility] Results Test Description Test Time Test Comments Results Result Comments Source TESTOSTERONE 2021-02-04 03:18:15 Test Item Value Reference Range Interpretation Comme nts TESTOSTERONE (test code = 2830) 299 NG/DL 300-890 L UNLESS OTHERWISE INDICATED, ALL TESTING PERFORMED ATCLINICAL PATH [facility], [place] [address] 4 LABORATORY DIRE CTOR: HALEY JETT M.D. CLIA NUMBER [id number] [facility] [place]. [id number] FSH + LH [id number] 03:17:56 Test Item Value Reference Range Interpretation Comments FOLLICLE STIM HORMONE (test code = 5.9 IU/L 1.5-12.4 2700) LUTEINIZING HORMONE (test code = 5.3 IU/L 1.2-8.6 2776) [id number] 03:17:56 Test Item Value Reference Range Interpretation Comments PROLACTIN (test 8.1 NG/ML 4.0-26.0 NOTE: Me thodology is Sanna code = 2800) Jerry Electroch emiluminescence Immunoassay ( ECLIA). Values obtained with d ifferent assays/manufact urers cannot be used interchang eably. Results should not be used as sole basis to e stablish the presence or abs ence of malignancy. TSH, THIRD [id number] 03:17:56 Test Item Value Reference Range Interpretation Comments TSH, THIRD GENERATION (test code 2.490 UIU/ML 0.400-4.100 = 2821) HEPATITIS PANEL, [id number] 04:56:50 Test Item Value Reference Range Interpretation Comments HEPATITIS A IgM (test NON-REACTIVE NON-REACTIVE code = 40696) HEPATITIS B CORE IgM NON-REACTIVE NON-REACTIVE (test code = 4644) HEPATITIS B SURF AG NON-REACTIVE NON-REACTIVE (test code = 2739) HEPATITIS C ANTIBODY NON-REACTIVE NON-REACTIVE (test code = 4675) INTERPRETATION (NOTE) Hepatiti s A HEPATITIS A: (test serology shows no code = 2552) evidence of acu te hepatitis A. INTERPRETATION (NOTE) Hepatiti s B HEPATITIS B: (test serology shows no code = 88957) evidence of ac radha hepatitis B and no indication of exposure to hepatitis B vir us in the previous si xto eight months. INTERPRETATION (NOTE) Hepatiti s C HEPATITIS C: (test serology shows no code = 89608) evidence of ex posure to hepatitisC v irus at this time. It can take up to 12 months after exposure tothe hepatitis C vir us for antibodies to become detectab le in the blood i n certain patient s. UNLESS OTHE RWISE INDICATED, ALL TESTING PERFORM ED ATCLINICAL PATH [facility], [place]. [address] [place] [address] 4 DAIRY PROCESSING EQUIPMENT OPERATOR: HALEY JETT M.D. CLIA NUMBER [id number] [facility] ACCREDITATION N O. [id number] HEMOGLOBIN [id number] 04:39:16 Test Item Value Reference Range Interpretation Comments HEMOGLOBIN A1c (test code = 90389) 6.1 % 4.2-5.6 H COMPREHENSIVE METABOLIC [id number] 04:05:39 Test Item Value Reference Range Interpretation Comments GLUCOSE (test code = 75 MG/DL 70-99 2216) BUN (test code = 16 MG/DL 6-20 2207) CREATININE (test 0.99 MG/DL 0.80-1.40 EFFECTIVE code = 2214) 01/17/2021, [facility] HAS IMPLEMENTED THE NKF-ASN RECOMME NDED KD-EPI EGF R REFIT CALCULATI ON THAT DOES NOT INCLUDE A COEFFICIENT FOR RACE. FOR MORE INFORMATION, SE E ANNOUNCEMENT [email or web address] eGFR (2020 CKD-EPI) 89 ML/MIN/1.73 >60 (test code = 35623) CALC BUN/CREAT (test 16 RATIO 6-28 code = 2235) SODIUM (test code = 143 MEQ/L 068-641 0888) POTASSIUM (test code 4.2 MEQ/L 3.5-5.4 = [...] message] (test code = 2207) The syste [employer] which generated this result transmit anthony reference range : <=1.2. The refe rence range was not u sed to interpret th is result as normal/abnormal . ALKALINE PHOSPHATASE 66 U/L 40-123 (test code = 2204) AST (test code = 18 U/L 9-50 2217) ALT (test code = 20 U/L 5-50 2218) LIPID [id number] 04:05:39 Test Item Value Reference Range Interpretation [...] MOREINFORMATION , SEE CLIENT ANNOUNCE MENT AT [email or web address] RISK RATIO LDL/HDL 2.71 RATIO <3.55 (test code = 2238) CBC W/AUTO DIFF WITH [id number] 02:59:22 Test Item Value Reference Range Interpretation [...] LL BE ELIMINATED REDUNDANT TOABS OLUTE COUNTS.SEE www.[employer] /todd l_CBC_reporting _upda te LYMPHOCYTES (test 33.3 % code = 1010) MONOCYTES (test code 6.1 % = 1011) EOSINOPHILS (test 8.1 % code = 1012) BASOPHILS (test code 0.7 % = 1013) IMMATURE GRANYLOCYTES 0.2 % (test code = 1036) NUCLEATED RBCS (test 0.0 /100 See_Comment [Autom ated message] code = 1065) WBC'S The system [employer] generated this result transmit anthony reference range [...] RBCS 0.02 K/UL 0.00-0.11 (test code = 60589)
--- NOTE | 2021-07-08 17:55 | RAD REPORT ---
EXAM DESCRIPTION: RAD - Chest Single View - 07/08/2021 5:49 pm CLINICAL HISTORY: CHEST PAIN Chest pain. COMPARISON: Chest Single View dated 05/22/2021; Chest Single View dated 04/21/2021 FINDINGS: Portable technique limits examination quality. The lungs are grossly clear. The heart is normal in size. No displaced fractures. IMPRESSION: No acute intrathoracic process suspected.
[2021-07-08 18:28] LABS: Absolute Lymphocytes (CBC) 1.3 K/uL (0.7-4.9); Hematocrit 41.2 % (39.6-49.0); Lymphocytes % 19.9 % (15.3-44.8); MPV 7.5 fL (7.6-11.3); RBC Red Blood Cell Count 4.46 M/uL (4.33-5.43)
[2021-07-08 18:29] LABS: Protime INR 1.22
[2021-07-08 18:42] LABS: Albumin 3.9 g/dL (3.4-5.0); Bilirubin Direct 0.2 mg/dL (0-0.2); Bilirubin Total 0.5 mg/dL (0.2-1.0); Magnesium 2.4 mg/dL (1.8-2.4); Potassium 3.7 mmol/L (3.5-5.1); Protein, Total 7.5 g/dL (6.4-8.2)
--- NOTE | 2021-07-08 20:07 | EDPHYS ---
Physician Documentation [facility] Name: Carlos Celis Age: 56 yrs Sex: Male : 1965 Arrival Date: 07/08/2021 Time: 16:30 Bed 19 Private MD: ED Physician Edi He HPI: 07/08 17:00 This 56 yrs old Male presents to ER via Ambulatory with complaints of High jmm Blood Pressure, Urinary Problem, Chest Pain. 17:00 The patient has elevated blood pressure and discovered this at a physician's office. jmm Onset: The symptoms/episode began/occurred today. Modifying factors: The symptoms are aggravated by. Associated signs and symptoms: Pertinent positives: chest pain. This is a 56 year old male with history of htn that presents to the ED with complaints of chest pain beginning last night. Patient was seen at physicians office. BP was elevated with abnormal EKG. Patient also complains of hematuria. . Historical: - Allergies: 17:15 No Known Allergies; vg1 - Home Meds: 17:15 aspirin 81 mg Oral tab daily [Active]; atorvastatin 40 mg Oral tab 1 tab once daily vg1 [Active]; losartan 25 mg Oral tab [Active]; metoprolol tartrate 25 mg Oral tab 1 tab 2 times per day [Active]; BRILINTA 90 mg Oral tab 1 tab 2 times per day [Active]; - PMHx: 17:15 Hypertensive disorder; pre-diabetic; vg1 - PSHx: 17:15 Appendectomy; Stented artery; vg1 - Immunization history:: Client reports receiving the 1st dose of the Covid vaccine. - Social history:: Smoking status: Patient denies any tobacco usage or history of. ROS: 17:00 Constitutional: Negative for fever, chills, and weight loss. jmm 17:00 Cardiovascular: Positive for chest pain. 17:00 All other systems are negative. Exam: 17:00 Constitutional: This is a well developed, well nourished patient who is awake, alert, jmm and in no acute distress. Head/Face: atraumatic. Eyes: EOMI, no conjunctival erythema appreciated ENT: Moist Mucus Membranes Neck: Trachea midline, Supple Chest/axilla: Normal chest wall appearance and motion. Cardiovascular: Regular rate and rhythm. No edema appreciated Respiratory: Normal respirations, no respiratory distress appreciated Abdomen/GI: Non distended, soft Back: Normal ROM Skin: General appearance color normal MS/ Extremity: Moves all extremities, no obvious deformities appreciated, no edema noted to the lower extremities Neuro: Awake and alert Psych: Behavior is normal, Mood is normal, Patient is cooperative and pleasant Vital Signs: 17:12 BP 187 / 90; Pulse 66; Resp 16; Temp 97.9; Pulse Ox 100% on R/A; Weight 95.25 kg; vg1 Height 6 ft. 2 in. (187.96 cm); Pain 2/10; 18:21 BP 174 / 88; Pulse 56; Resp 18; Pulse Ox 100% on R/A; teran 19:24 BP 174 / 97; Pulse 62; Resp 17; Pulse Ox 100% on R/A; lg3 17:12 Body Mass Index 26.96 (95.25 kg, 187.96 cm) vg1 MDM: 17:11 Patient medically screened. [facility] 20:05 Data reviewed: vital signs, nurses notes. Counseling: I had a detailed discussion with zuly the patient and/or guardian regarding: the historical points, exam findings, and any diagnostic results supporting the discharge/admit diagnosis, lab results, the need for further work-up and treatment in the hospital. ED course: I discussed the patient with Ms. Tanya Calderon PA-C whom accepted the patient to Dr. Dania mcintosh.. 07/08 17:00 Order name: Basic Metabolic Panel; Complete Time: 19:32 [facility] 07/08 17:00 Order name: CBC with Diff; Complete Time: 18:32 [facility] 07/08 17:00 Order name: LFT's; Complete Time: 19:32 [facility] 07/08 17:00 Order name: Magnesium; Complete Time: 19:32 [facility] 07/08 17:00 Order name: NT PRO-BNP; Complete Time: 19:32 [facility] 07/08 17:00 Order name: PT-INR; Complete Time: 18:32 [facility] 07/08 17:00 Order name: Troponin HS; Complete Time: 19:32 [facility] 07/08 17:00 Order name: XRAY Chest (1 view); Complete Time: 17:58 [facility] 07/08 17:01 Order name: SARS-COV-2 RT PCR (Document "Date of Onset" if Symptomatic); Complete Time: [facility] 21:02 07/09 03:27 Order name: Lipid Profile; Complete Time: 12:04 [facility] 07/09 03:37 Order name: Creatine Phosphokinase; Complete Time: 12:04 [facility] 07/09 03:37 Order name: CKMB Creatine Kinase MB; Complete Time: 12:04 [facility] 07/09 03:37 Order name: Troponin High Sensitivity; Complete Time: 12:04 [facility] 07/09 03:37 Order name: Thyroid Stimulating Hormone; Complete Time: 12:04 [facility] 07/08 17:00 Order name: EKG; Complete Time: 17:01 [facility] 07/08 17:00 Order name: Cardiac monitoring; Complete Time: 18:41 [facility] 07/08 17:00 Order name: EKG - Nurse/Tech; Complete Time: 18:20 [facility] 07/08 17:00 Order name: IV Saline Lock; Complete Time: 18:20 [facility] 07/08 17:00 Order name: Labs collected and sent; Complete Time: 18:20 [facility] 07/08 17:00 Order name: O2 Per Protocol; Complete Time: 18:20 [facility] 07/08 17:00 Order name: O2 Sat Monitoring; Complete Time: 18:20 [facility] Administered Medications: No medications were administered Disposition Summary: 07/08/21 20:06 Hospitalization Ordered Hospitalization Status: Observation [facility] Provider: Rosa Najera Condition: Stable [facility] Problem: new [facility] Symptoms: are unchanged [facility] Bed/Room Type: Standard [facility] Location: [facility] ER HOLD(07/08/21 20:10) Room Assignment: ERHOLD-(07/08/21 20:10) Diagnosis - Chest pain, unspecified [facility] Forms: - Medication Reconciliation Form [facility] - SBAR form [facility] Addendum: 07/22/2021 14:11 Co-signature as Attending Physician, Edi He MD I agree with the assessment and c teran plan of care. Signatures: Dispatcher [employer] EDCourtney Noland, RN Edi Perera MD MD cha Mickail, Joel, PA PA jmm Garcia, Victoria RN RN vg1 Corrections: (The following items were deleted from the chart) 07/08 20:10 20:06 Telemetry/MedSurg (observation) [facility] 20:10 20:06 jmm mw
--- NOTE | 2021-07-08 20:07 | ER ---
Nurse's Notes [facility] Name: Carlos Celis Age: 56 yrs Sex: Male : 1965 Arrival Date: 07/08/2021 Time: 16:30 Bed 19 Private MD: Diagnosis: Chest pain, unspecified Presentation: 07/08 17:12 Chief complaint: Patient states: systolic pressure of [address] in [place] [address] clinic; pt states CP 2/10, denies NV or SOB. Pt also states has blood in urine. Coronavirus screen: Vaccine status: Patient reports receiving the 1st dose of the Covid vaccine. Client denies travel out of the [place] in the last 14 days. Ebola Screen: Patient denies exposure to infectious person. Patient denies travel to an Ebola-affected area in the 21 days before illness onset. Initial Sepsis Screen: Does the patient meet any 2 criteria? No. Patient's initial sepsis screen is negative. Does the patient have a suspected source of infection? No. Patient's initial sepsis screen is negative. Risk Assessment: Do you want to hurt yourself or someone else? Patient reports no desire to harm self or others. Onset of symptoms was July 08, 2021. 17:12 Method Of Arrival: Ambulatory [facility] 17:12 Acuity: SYLVIE 2 1 Triage Assessment: 17:15 General: Appears comfortable, Behavior is calm, cooperative. Pain: Complains of pain in vg1 left breast Pain does not radiate. Pain currently is 2 out of 10 on a pain scale. Cardiovascular: Patient's skin is warm and dry. Historical: - Allergies: 17:15 No Known Allergies; vg1 - Home Meds: 17:15 aspirin 81 mg Oral tab daily [Active]; atorvastatin 40 mg Oral tab 1 tab once daily vg1 [Active]; losartan 25 mg Oral tab [Active]; metoprolol tartrate 25 mg Oral tab 1 tab 2 times per day [Active]; BRILINTA 90 mg Oral tab 1 tab 2 times per day [Active]; - PMHx: 17:15 Hypertensive disorder; pre-diabetic; vg1 - PSHx: 17:15 Appendectomy; Stented artery; vg1 - Immunization history:: Client reports receiving the 1st dose of the Covid vaccine. - Social history:: Smoking status: Patient denies any tobacco usage or history of. Screenin:22 Abuse screen: Denies threats or abuse. Denies injuries from another. Nutritional teran screening: No deficits noted. Tuberculosis screening: No symptoms or risk factors identified. Fall Risk None identified. Assessment: 18:24 General: Appears in no apparent distress. Behavior is calm, cooperative. Pain: Denies teran pain. Cardiovascular: Reports high blood pressure. :. 19:24 General: Appears in no apparent distress. comfortable, Behavior is calm, cooperative. lg3 Pain: Denies pain. Neuro: No deficits noted. Espinal Agitation-Sedation Scale (RASS): 0 - Alert and Calm Level of Consciousness is awake, alert, obeys commands, Oriented to person, place, time, situation. Cardiovascular: No deficits noted. Denies chest pain, shortness of breath, Capillary refill < 3 seconds Clubbing of nail beds is absent JVD is absent Patient's skin is warm and dry. Respiratory: No deficits noted. Airway is patent Trachea midline Respiratory effort is even, unlabored, Respiratory pattern is regular, symmetrical. GI: No deficits noted. No signs and/or symptoms were reported involving the gastrointestinal system. Abdomen is round non-distended. : No deficits noted. No signs and/or symptoms were reported regarding the genitourinary system. EENT: No deficits noted. No signs and/or symptoms were reported regarding the EENT system. Derm: No deficits noted. No signs and/or symptoms reported regarding the dermatologic system. Skin is intact, is healthy with good turgor, Skin is dry, Skin temperature is warm. Musculoskeletal: No deficits noted. No signs and/or symptoms reported regarding the musculoskeletal system. Circulation, motion, and sensation intact. Range of motion: intact in all extremities. Vital Signs: 17:12 BP 187 / 90; Pulse 66; Resp 16; Temp 97.9; Pulse Ox 100% on R/A; Weight 95.25 kg; vg1 Height 6 ft. 2 in. (187.96 cm); Pain 2/10; 18:21 BP 174 / 88; Pulse 56; Resp 18; Pulse Ox 100% on R/A; teran 19:24 BP 174 / 97; Pulse 62; Resp 17; Pulse Ox 100% on R/A; lg3 17:12 Body Mass Index 26.96 (95.25 kg, 187.96 cm) vg1 ED Course: 16:30 Patient arrived in ED. rg4 16:57 Marcos Bahena PA is PHCP. [facility] 16:57 Edi He MD is Attending Physician. jmm 17:15 Triage completed. vg1 17:15 Arm band placed on. vg1 17:51 XRAY Chest (1 view) In Process Unspecified. EDMS 18:19 Julia Purcell, RN is Primary Nurse. teran 18:22 Patient has correct armband on for positive identification. Bed in low position. teran 18:22 No provider procedures requiring assistance completed. Inserted saline lock: 20 gauge teran in right antecubital area, using aseptic technique. 18:26 COVID swab sent to lab. jw7 18:26 SARS-COV-2 RT PCR (Document "Date of Onset" if Symptomatic) Sent. jw7 20:05 Rosa Najera MD is Hospitalizing Provider. [facility] 07/09 02:20 Patient admitted, IV remains in place. intact, No redness/swelling at site. lg3 Administered Medications: No medications were administered Medication: 07/08 18:23 VIS not applicable for this client. teran Outcome: 20:06 Decision to Hospitalize by Provider. [facility] 07/09 02:20 Admitted to ER Hold. Please see [facility] for further documentation. lg3 Condition: stable Instructed on the need for admit. 16:33 Patient left the ED. ss Signatures: Dispatcher [employer] EDMS Marcos Bahena PA PA [facility] Carole Velez RN RN ss Garcia, Rubi rg4 Meliza Kamara RN RN lg3 Robyn Lo RN RN [facility] Julia Purcell, Barbara [place] RN [facility]
--- NOTE | 2021-07-08 21:51 | P.HP ---
Certification for Inpatient Patient admitted to: Observation With expected LOS: <2 Midnights Patient will require the following post-hospital care: None Practitioner: I am a practitioner with admitting privileges, knowledge of patient current condition, hospital course, and medical plan of care. Services: Services provided to patient in accordance with Admission requirements found in Title 42 Section 412.3 of the Code of Federal Regulations <Sindy Calderon - Last Filed: 07/09/21 02:13> Patient History Date of Service: 07/08/21 Reason for admission: ACS R/O History of Present Illness: Patient is a 56 y/o, primarily Senegalese speaking, male with PMH of HTN and 2 recent cardiac catheteriztions in April and May 2021 (1 stent placed) who presented to the ED with complaints of high blood pressure. Patient was at the clinic where they noticed his BP was 187 systolic and sent him to the ED. He reports 2/10 chest pain and hematuria. He seems to think his recent high blood pressure is related to his increased salt intake. Labs significant for troponin HS 86. EKG and CXR WNL. ED provider wishes to admit patient for observation. - Past Medical/Surgical History Diabetic: Yes -: Hypertension -: Appendectomy -: Stent Psychosocial/ Personal History: Patient lives at home with his . - Family History Family History: Reviewed- Non-Contributory - Social History Smoking Status: Never smoker Alcohol use: No CD- Drugs: No Caffeine use: No Place of Residence: Home <Sindy Calderon - Last Filed: 07/09/21 02:13> Date of Service: 07/08/21 <Rosa Najera - Last Filed: 07/23/21 01:20> Allergies No Known Allergies Allergy (Unverified 04/22/21 01:54) Home Medications: Losartan Potassium 25 mg PO DAILY 04/23/21 Aspirin [Aspirin EC 81 MG] 81 mg PO DAILY #30 tablet. 04/26/21 Atorvastatin Calcium [Lipitor] 40 mg PO BEDTIME #30 tab 04/26/21 Metoprolol Tartrate [Lopressor*] 25 mg PO BID 6AM 6PM #60 tab 04/26/21 Ticagrelor [Brilinta*] 90 mg PO BID #60 tablet 04/26/21 Review of Systems 10-point ROS is otherwise unremarkable <Sindy Calderon - Last Filed: 07/09/21 02:13> Physical Examination - Physical Exam General: Alert, In no apparent distress HEENT: Atraumatic, PERRLA, Mucous membr. moist/pink, EOMI, Sclerae nonicteric Neck: Supple, 2+ carotid pulse no bruit, No LAD, Without JVD or thyroid abnormality Respiratory: Clear to auscultation bilaterally, Normal air movement Cardiovascular: Regular rate/rhythm, Normal S1 S2 Gastrointestinal: Normal bowel sounds, No tenderness Musculoskeletal: No tenderness Integumentary: No rashes Neurological: Normal speech, Normal strength at 5/5 x4 extr, Normal tone, Normal affect - Studies Laboratory Data (last 24 hrs) 07/08/21 18:15: PT 13.5 H, INR 1.22 07/08/21 18:15: WBC 6.6, Hgb 13.8, Hct 41.2, Plt Count 193 07/08/21 18:15: Sodium 140, Potassium 3.7, BUN 15, Creatinine 1.07, Glucose 95, Magnesium 2.4, Total Bilirubin 0.5, AST 17, ALT 32, Alkaline Phosphatase 85 <Sindy Calderon - Last Filed: 07/09/21 02:13> Assessment and Plan - Problems (Diagnosis) (1) Elevated troponin Status: Acute (2) HTN (hypertension) Status: Chronic Qualifiers: Hypertension type: primary hypertension Qualified Code(s): I10 - Essential (primary) hypertension (3) History of coronary artery disease Status: Chronic (4) Hyperlipidemia Status: Chronic Qualifiers: Hyperlipidemia type: unspecified Qualified Code(s): E78.5 - Hyperlipidemia, unspecified (5) Unstable angina Status: Acute - Plan -Monitor BP closely. Hydralazine PRN -Initial troponin elevated at 86. Patient denies chest pain at this time. Had cardiac cath with stent placed in April 2021 after NSTEMI and another cardiac cath in May 2021 without stent after experiencing similar symptoms. Will trend troponin q6hx2 and check CPK and CKMB -Cardiology consulted -Aspirin and atorvastatin daily -Reconcile and continue home medications -Lovenox for VTE ppx -Full code Discharge Plan: Home Plan to discharge in: 24 Hours - Advance Directives Does patient have a Living Will: No Does patient have a Durable POA for Healthcare: No - Code Status/Comfort Care Code Status Assessed: Yes (Full) Critical Care: No Time Spent Managing Pts Care (In Minutes): 50 <Sindy Calderon - Last Filed: 07/09/21 02:13> Date of Service: 07/08/21 SUBJECTIVE: Agree with the HPI as mentioned above OBJECTIVE: Vital Signs: reviewed General: WNL HEENT:WNL CV: WNL Lungs: WNL Abd: WNL Ext: WNL ASSESSMENT: 1. Elevated troponin PLAN: Plan as mentioned above <Rosa Najera - Last Filed: 07/23/21 01:20>
[2021-07-09] MEDS ORDERED: ONDANSETRON 4 MG/2 ML VIAL IV PRN (00:04)
[2021-07-09] MEDS ORDERED: HYDRALAZINE HCL 20 MG/ML VIAL IV PRN (00:04)
[2021-07-09] MEDS ORDERED: ACETAMINOPHEN 500 MG TAB PO PRN (00:04)
[2021-07-09 02:13] VITALS: O2SAT 100; BMI 26.9
[2021-07-09 02:19] VITALS: TEMP 97.9
[2021-07-09 03:36] LABS: CKMB Creatine Kinase MB 1.9 ng/mL (1.0-3.6); Thyroid Stimulating Hormone 2.27 uIU/mL (0.360-3.740)
[2021-07-09 03:37] LABS: Troponin High Sensitivity 79.6 pg/mL (<58.9)
[2021-07-09] MEDS ORDERED: ENOXAPARIN 40 MG/0.4 ML SQ SCH (09:00)
[2021-07-09] MEDS ORDERED: ASPIRIN EC 81 MG TAB PO SCH (09:00)
[2021-07-09] MEDS ORDERED: HYDRALAZINE HCL 20 MG/ML VIAL ONE (11:23)
[2021-07-09] MEDS ORDERED: AMLODIPINE 5 MG TAB ONE (14:02)
[2021-07-09] MEDS ORDERED: AMLODIPINE 5 MG TAB PO ONE (14:14)
[2021-07-09 14:17] VITALS: BP 166/93
--- NOTE | 2021-07-09 17:24 | CON ---
Date of Consultation: 07/09/2021 Reason For Consultation: Elevated blood pressure. History Of Present Illness: A 56-year-old male, very well known to me, status post PCI of the LAD re cently by myself, presented with elevated blood pressure. He was at his primary care doctor and his blood pressure was in the 190s range, so he was sent to the hospital. He does not have any chest jacky n or shortness of breath whatsoever. Past Medical History: As outlined above in the HPI, hypertension, coronary artery disease. Medications: Refer to reconciliation sheet for detailed list. Allergies: NO KNOWN DRUG ALLERGIES. Family History: No premature coronary artery disease or cancer. Social History: Does not smoke or drink. Does not use any drugs. Review of Systems: All systems reviewed and they are negative except for what mentioned in HPI. Physical Examination: Vital Signs: Reviewed. Head and Neck: Pupils are equal, reactive to light. Intact eye movements. No JVD. No cervical lym phadenopathy. Neck: Supple. Thyroid is not enlarged. Lungs: Clear to auscultation bilaterally. No rhonchi, rales, or crackles. No accessory muscle use. Heart: Regular rate and rhythm. No extra sounds. Abdomen: Soft, nontender. Bowel sounds positive. No organomegaly. No masses or hernia. No rigidi ty or rebound. Extremities: No clubbing or cyanosis. Intact pulses. Skin: No rash noted. Neurologic: Alert, awake, oriented x3. No acute focal deficits appreciated. Investigations: Troponin is 79. Creatinine is normal. Assessment And Recommendations: 1.Hypertension. Blood pressure is better. Add Norvasc 5 mg daily and the patient can be released a nd follow up with me as an outpatient. 2.Elevated troponin. No active chest pain. Continue Brilinta and aspirin and high-dose statin and okay from Cardiology standpoint to discharge as he is asymptomatic and troponin is trending down and to follow up with me in the office early next week and we will plan for a stress test as an outpatien t and an echocardiogram. 3.Dyslipidemia. Continue statin. SR/MODL Voice ID: [id number] Report ID: [id number]
[2021-07-09] MEDS ORDERED: ATORVASTATIN 40 MG TAB PO SCH (21:00)
--- NOTE | 2021-07-11 13:25 | EKG ---
Test Date: 2021-07-08 Test Time: 17:19:49 Head Up Operator Helper: TONI MEASUREMENT RESULTS: Intervals: Rate: 58 WV: 184 QRSD: 86 QT: 430 QTc: 422 [place]: P: 23 WV: 184 QRS: 18 T: 89 INTERPRETIVE STATEMENTS: Sinus bradycardia Septal infarct, age undetermined Abnormal ECG Compared to ECG 05/22/2021 14:27:52 Sinus rhythm no longer present T-wave abnormality no longer present Possible ischemia no longer present Myocardial infarct finding still present Electronically Signed On 07-11-21 13:22:47 CDT by Casper Colunga
--- NOTE | 2021-07-23 01:21 | P.DS ---
Discharge Date: 07/09/21 Disposition: ROUTINE DISCHARGE Discharge Condition: GOOD Reason for Admission: ACS R/O Brief History of Present Illness: Patient is a 56 y/o, primarily Vincentian speaking, male with PMH of HTN and 2 recent cardiac catheteriztions in April and May 2021 (1 stent placed) who presented to the ED with complaints of high blood pressure. Patient was at the clinic where they noticed his BP was 187 systolic and sent him to the ED. He reports 2/10 chest pain and hematuria. He seems to think his recent high blood pressure is related to his increased salt intake. Labs significant for troponin HS 86. EKG and CXR WNL. ED provider wishes to admit patient for observation. Hospital Course: Patient is clinically doing well. At this time, patient is stable for discharge home. Vital Signs/Physical Exam: Temp Pulse Resp BP Pulse Ox 97.9 F 60 16 166/93 H 98 07/09/21 00:00 07/09/21 14:14 07/09/21 12:00 07/09/21 14:14 07/09/21 12:00 General: Alert, In no apparent distress, Oriented x3 Laboratory Data at Discharge: WBC 6.6 K/uL (4.3-10.9) 07/08/21 18:15 Hgb 13.8 g/dL (13.6-17.9) 07/08/21 18:15 Hct 41.2 % (39.6-49.0) 07/08/21 18:15 Plt Count 193 K/uL (152-406) 07/08/21 18:15 PT 13.5 SECONDS (9.5-12.5) H 07/08/21 18:15 INR 1.22 07/08/21 18:15 Sodium 140 mmol/L (136-145) 07/08/21 18:15 Potassium 3.7 mmol/L (3.5-5.1) 07/08/21 18:15 BUN 15 mg/dL (7-18) 07/08/21 18:15 Creatinine 1.07 mg/dL (0.55-1.3) 07/08/21 18:15 Glucose 95 mg/dL (74-106) 07/08/21 18:15 Magnesium 2.4 mg/dL (1.8-2.4) 07/08/21 18:15 Total Bilirubin 0.5 mg/dL (0.2-1.0) 07/08/21 18:15 AST 17 U/L (15-37) 07/08/21 18:15 ALT 32 U/L (12-78) 07/08/21 18:15 Alkaline Phosphatase 85 U/L (45-117) 07/08/21 18:15 Triglycerides 85 mg/dL (<150) 07/09/21 02:45 Cholesterol 90 mg/dL (<200) 07/09/21 02:45 HDL Cholesterol 36 mg/dL (40-60) L 07/09/21 02:45 Cholesterol/HDL Ratio 2.50 07/09/21 02:45 Home Medications: Losartan Potassium 25 mg PO DAILY 04/23/21 Aspirin [Aspirin EC 81 MG] 81 mg PO DAILY #30 tablet. 04/26/21 Atorvastatin Calcium [Lipitor] 40 mg PO BEDTIME #30 tab 04/26/21 Metoprolol Tartrate [Lopressor*] 25 mg PO BID 6AM 6PM #60 tab 04/26/21 Ticagrelor [Brilinta*] 90 mg PO BID #60 tablet 04/26/21 Physician Discharge Instructions: OK TO DC IV AND DC HOME FOLLOW-UP WITH PCP IN 1-2 WEEKS RETURN TO THE ER IF SYMPTOMS WORSENS FOLLOW-UP WITH CARDIOLOGY IN 1-2 WEEKS RETURN TO THE ER IF SYMPTOMS WORSENS CALL DR. KWOK AT [phone] IF ANY QUESTIONS REGARDING HOSPITAL STAY Diet: AHA Activity: Fall precautions Followup: NONE,NONE [Primary Care Provider] - Time spent managing pt's care (in minutes): 35
== END 2021-07-09 15:25 | disposition home or self-care (01) ==
LOC: ER 16:27 → ERHOLD 21:56
PROVIDERS: ADMIT Hospitalist; ATTEND Hospitalist
DX: I10 Essential (primary) hypertension (principal); R77.8 Other specified abnormalities of plasma proteins; E78.5 Hyperlipidemia, unspecified; I25.110 Atherosclerotic heart disease of native coronary artery with unstable angina pectoris; E11.9 Type 2 diabetes mellitus without complications; I25.2 Old myocardial infarction; R31.9 Hematuria, unspecified; Z95.5 Presence of coronary angioplasty implant and graft; Z79.82 Long term (current) use of aspirin; Z79.899 Other long term (current) drug therapy; Z20.822 Contact with and (suspected) exposure to COVID-19
CPT/HCPCS: 93005; 85025; 80048; 36415; 83735; 82550; 85610; 80061; 80076; 84443; 84484 ×2; 82553; 83880; 71045; 99285; U0003; G0378 ×3; J0360

== ENCOUNTER 2021-08-28 03:56 | Emergency (ER) | payer OTHER ==
--- OUTSIDE RECORDS SUMMARY | 2021-08-28 03:59 | XMS REPORT | Continuity of Care Document ---
:1965 Author Organization [facility] t Address [address] [place] [address] Care Team Providers Name Role Phone UNKNOWN [...] Facility Department ID 2016-12-13 2016-12-13 Outpatient C [facility] [id number] [address] 11:09:00 11:09:00 [facility] Results Test Description Test Time Test Comments Results Result Comments Source TESTOSTERONE 2021-02-04 03:18:15 Test Item Value Reference Range Interpretation Comme nts TESTOSTERONE (test code = 2830) 299 NG/DL 300-890 L UNLESS OTHERWISE INDICATED, ALL TESTING PERFORMED ATCLINICAL PATH [facility], [place] [address] 4 LABORATORY DIRE CTOR: HALEY JETT M.D. CLIA NUMBER [id number] [facility] [place]. [id number] F[facility] + LH [id number] 03:17:56 Test Item Value Reference Range Interpretation Comments FOLLICLE STIM HORMONE (test code = 5.9 IU/L 1.5-12.4 2700) LUTEINIZING HORMONE (test code = 5.3 IU/L 1.2-8.6 2776) [id number] 03:17:56 Test Item Value Reference Range Interpretation Comments PROLACTIN (test 8.1 NG/ML 4.0-26.0 NOTE: Me thodology is Sanna code = 2800) Jerry Electroch emiluminescence Immunoassay ( ECLIA). Values obtained with d ifferent assays/manufact urers cannot be used interchang eably. Results should not be used as sole basis to e stablish the presence or abs ence of malignancy. TSH, THIRD [id number] 03:17:56 Test Item Value Reference Range Interpretation Comments TSH, THIRD GENERATION (test code 2.490 UIU/ML 0.400-4.100 = 2821) HEPATITIS PANEL, [id number] 04:56:50 Test Item Value Reference Range Interpretation Comments HEPATITIS A IgM (test NON-REACTIVE NON-REACTIVE code = 17761) HEPATITIS B CORE IgM NON-REACTIVE NON-REACTIVE (test code = 4644) HEPATITIS B SURF AG NON-REACTIVE NON-REACTIVE (test code = 2739) HEPATITIS C ANTIBODY NON-REACTIVE NON-REACTIVE (test code = 4675) INTERPRETATION (NOTE) Hepatiti s A HEPATITIS A: (test serology shows no code = 2552) evidence of acu te hepatitis A. INTERPRETATION (NOTE) Hepatiti s B HEPATITIS B: (test serology shows no code = 33492) evidence of ac radha hepatitis B and no indication of exposure to hepatitis B vir us in the previous si xto eight months. INTERPRETATION (NOTE) Hepatiti s C HEPATITIS C: (test serology shows no code = 33785) evidence of ex posure to hepatitisC v irus at this time. It can take up to 12 months after exposure tothe hepatitis C vir us for antibodies to become detectab le in the blood i n certain patient s. UNLESS OTHE RWISE INDICATED, ALL TESTING PERFORM ED ATCLINICAL PATH [facility], [place]. [address] [place] [address] 4 RESEARCH GROUP DIRECTOR: HALEY JETT M.D. CLIA NUMBER [id number] [facility] [place]. [id number] HEMOGLOBIN [id number] 04:39:16 Test Item Value Reference Range Interpretation Comments HEMOGLOBIN A1c (test code = 93544) 6.1 % 4.2-5.6 H COMPREHENSIVE METABOLIC [id number] 04:05:39 Test Item Value Reference Range Interpretation Comments GLUCOSE (test code = 75 MG/DL 70-99 2216) BUN (test code = 16 MG/DL 6-20 2207) CREATININE (test 0.99 MG/DL 0.80-1.40 EFFECTIVE code = 2214) 01/17/2021, [facility] HAS IMPLEMENTED THE NKF-ASN RECOMME NDED KD-EPI EGF R REFIT CALCULATI ON THAT DOES NOT INCLUDE A COEFFICIENT FOR RACE. FOR MORE INFORMATION, SE E ANNOUNCEMENT [email or web address] eGFR (2020 CKD-EPI) 89 ML/MIN/1.73 >60 (test code = 76589) CALC BUN/CREAT (test 16 RATIO 6-28 code = 2235) SODIUM (test code = 143 MEQ/L 965-235 9647) POTASSIUM (test code 4.2 MEQ/L 3.5-5.4 = [...] message] (test code = 2207) The syste [employer] which generated this result transmit anthony reference range : <=1.2. The refe rence range was not u sed to interpret th is result as normal/abnormal . ALKALINE PHOSPHATASE 66 U/L 40-123 (test code = 2204) AST (test code = 18 U/L 9-50 2217) ALT (test code = 20 U/L 5-50 2218) LIPID [id number] 04:05:39 Test Item Value Reference Range Interpretation [...] MOREINFORMATION , SEE CLIENT ANNOUNCE MENT AT [email or web address] [email or web address] RATIO LDL/HDL 2.71 RATIO <3.55 (test code = 2238) CBC W/AUTO DIFF WITH [id number] 02:59:22 Test Item Value Reference Range Interpretation [...] LL BE ELIMINATED REDUNDANT TOABS OLUTE COUNTS.SEE www.[email or web address]-Tell /todd l_CBC_reporting _upda te LYMPHOCYTES (test 33.3 % code = 1010) MONOCYTES (test code 6.1 % = 1011) EOSINOPHILS (test 8.1 % code = 1012) BASOPHILS (test code 0.7 % = 1013) IMMATURE GRANYLOCYTES 0.2 % (test code = 1036) NUCLEATED RBCS (test 0.0 /100 See_Comment [Autom ated message] code = 1065) WBC'S The system [facility] generated this result transmit anthony reference range [...] RBCS 0.02 K/UL 0.00-0.11 (test code = 60869)
[2021-08-28] MEDS ORDERED: DIPHENHYDRAMINE 25 MG TAB/CAP ONE (04:30)
[2021-08-28] MEDS ORDERED: FAMOTIDINE 20 MG TAB ONE (04:30)
[2021-08-28] MEDS ORDERED: predniSONE 20 MG TAB ONE (04:31)
--- NOTE | 2021-08-28 05:04 | ER ---
Nurse's Notes [facility] Name: Carlos Celis Age: 56 yrs Sex: Male : 1965 Arrival Date: 08/28/2021 Time: 03:58 Bed Waiting Private MD: Diagnosis: Allergic urticaria Presentation: 08/28 04:24 Chief complaint: Patient states: "I started breaking out yesterday afternoon". vc1 Coronavirus screen: At this time, the client does not indicate any symptoms associated with coronavirus-19. Ebola Screen: No symptoms or risks identified at this time. Onset: The symptoms/episode began/occurred gradually. Anaphylaxis evaluation, no signs or symptoms of anaphylaxis were noted. Initial Sepsis Screen: Does the patient meet any 2 criteria? No. Patient's initial sepsis screen is negative. Does the patient have a suspected source of infection? No. Patient's initial sepsis screen is negative. Risk Assessment: Do you want to hurt yourself or someone else? Patient reports no desire to harm self or others. Onset of symptoms was August 27, 2021. 04:24 Method Of Arrival: Ambulatory vc1 04:24 Acuity: SYLVIE 5 vc1 Triage Assessment: 05:16 General: Appears in no apparent distress. uncomfortable, Behavior is calm, cooperative, vc1 appropriate for age. Historical: - Allergies: 04:26 No Known Allergies; vc1 - PMHx: 04:26 Hypertensive disorder; pre-diabetic; vc1 - PSHx: 04:26 Appendectomy; Stented artery; vc1 - Immunization history:: Adult Immunizations up to date. - Social history:: Smoking status: Patient denies any tobacco usage or history of. Screenin:15 Abuse screen: Denies threats or abuse. Nutritional screening: No deficits noted. vc1 Tuberculosis screening: No symptoms or risk factors identified. Fall Risk None identified. Assessment: 05:15 Pain: Denies pain. Respiratory: Airway is patent Respiratory effort is even, unlabored, vc1 Breath sounds are clear bilaterally. Vital Signs: 04:24 BP 157 / 94; Pulse 84; Resp 17; Temp 97.9; Pulse Ox 100% ; Weight 95.25 kg; Height 5 vc1 ft. 10 in. (177.80 cm); Pain 1/; 04:24 Body Mass Index 30.13 (95.25 kg, 177.80 cm) vc1 ED Course: 03:58 Patient arrived in ED. bp1 04:00 Humphrey Brooks DO is Attending Physician. ms3 04:26 Triage completed. vc1 04:26 Arm band placed on right wrist. EKG completed in triage. Results shown to MD. vc1 05:03 Juan C Garg DO is Referral Physician. ms3 05:16 No provider procedures requiring assistance completed. Patient did not have IV access vc1 during this emergency room visit. 05:17 Patient has correct armband on for positive identification. vc1 Administered Medications: 04:29 Drug: predniSONE 60 mg Route: PO; vc1 04:29 Drug: Benadryl (diphenhydrAMINE) 50 mg Route: PO; vc1 04:29 Drug: Pepcid (famotidine) 20 mg Route: PO; vc1 Medication: 05:17 VIS not applicable for this client. vc1 Outcome: 05:04 Discharge ordered by MD. ms3 05:16 Discharged to home ambulatory, with significant other. vc1 05:16 Condition: good 05:16 Discharge instructions given to patient, significant other, Instructed on discharge instructions, follow up and referral plans. medication usage, Demonstrated understanding of instructions, follow-up care, medications. 05:17 Patient left the ED. vc1 Signatures: Humphrey Brooks DO DO ms3 Era Ordaz bp1 Manda Jose, RN RN vc1
--- NOTE | 2021-08-28 05:04 | EDPHYS ---
Physician Documentation [facility] Name: Carlos Celis Age: 56 yrs Sex: Male : 1965 Arrival Date: 08/28/2021 Time: 03:58 Bed Waiting Private MD: ED Physician Humphrey Brooks HPI: 08/28 05:10 This 56 yrs old Male presents to ER via Ambulatory with complaints of Allergic ms3 Reaction, Hives. 05:10 56-year-old male presents for itching/hives that began yesterday afternoon. Patient ms3 denies shortness of breath, nausea, vomiting. Patient states his itching is a 10/10. Patient denies taking medication for the discomfort. Patient denies alleviating or inciting factors.. Historical: - Allergies: 04:26 No Known Allergies; vc1 - PMHx: 04:26 Hypertensive disorder; pre-diabetic; vc1 - PSHx: 04:26 Appendectomy; Stented artery; vc1 - Immunization history:: Adult Immunizations up to date. - Social history:: Smoking status: Patient denies any tobacco usage or history of. ROS: 05:10 Constitutional: Negative for fever, and chills. Neck: Negative for injury, pain, and ms3 swelling, Cardiovascular: Negative for chest pain, and palpitations. Respiratory: Negative for shortness of breath, cough, wheezing, and pleuritic chest pain, Abdomen/GI: Negative for abdominal pain, nausea, vomiting, diarrhea, and constipation, MS/Extremity: Negative for injury and deformity. 05:10 Skin: Positive for rash. 05:10 All other systems are negative. Exam: 05:10 Constitutional: This is a well developed, well nourished patient who is awake, alert, ms3 and in no acute distress. Head/Face: Normocephalic, atraumatic. Neck: Trachea midline, no cervical lymphadenopathy. Supple, full range of motion without nuchal rigidity, or vertebral point tenderness. No Meningismus. Chest/axilla: Normal chest wall appearance and motion. Nontender with no deformity. Cardiovascular: Regular rate and rhythm with a normal S1 and S2. No gallops, murmurs, or rubs. Normal PMI, no JVD. No pulse deficits. Respiratory: Lungs have equal breath sounds bilaterally, clear to auscultation and percussion. No rales, rhonchi or wheezes noted. No increased work of breathing, no retractions or nasal flaring. Abdomen/GI: Soft, non-tender, with normal bowel sounds. No distension or tympany. No guarding or rebound. No evidence of tenderness throughout. 05:10 MS/ Extremity: Pulses equal, no cyanosis. Neurovascular intact. Full, normal range of motion. Psych: Awake, alert, with orientation to person, place and time. Behavior, mood, and affect are within normal limits. 05:10 Skin: urticaria. Vital Signs: 04:24 BP 157 / 94; Pulse 84; Resp 17; Temp 97.9; Pulse Ox 100% ; Weight 95.25 kg; Height 5 vc1 ft. 10 in. (177.80 cm); Pain 02/14; 04:24 Body Mass Index 30.13 (95.25 kg, 177.80 cm) vc1 MDM: 04:11 Patient medically screened. ms3 05:10 Differential diagnosis: anaphylaxis, urticaria. Data reviewed: vital signs, nurses ms3 notes, and as a result, I will discharge patient. Data interpreted: Pulse oximetry: on room air is 100 %. Interpretation: normal. Counseling: I had a detailed discussion with the patient and/or guardian regarding: the historical points, exam findings, and any diagnostic results supporting the discharge/admit diagnosis, the need for outpatient follow up, to return to the emergency department if symptoms worsen or persist or if there are any questions or concerns that arise at home. ED course: On re-evaluation patient is improved, A/O x4, nad, non-toxic, ambulatory in ED, speaking full sentences.. Administered Medications: 04:29 Drug: predniSONE 60 mg Route: PO; vc1 04:29 Drug: Benadryl (diphenhydrAMINE) 50 mg Route: PO; vc1 04:29 Drug: Pepcid (famotidine) 20 mg Route: PO; vc1 Disposition Summary: 08/28/21 05:04 Discharge Ordered Location: Home ms3 Condition: Stable ms3 Diagnosis - Allergic urticaria ms3 Followup: ms3 - With: Juan C Garg, DO - When: 2 - 3 days - Reason: Recheck today's complaints Discharge Instructions: - Discharge Summary Sheet ms3 - Hives ms3 Forms: - Medication Reconciliation Form ms3 - Thank You Letter ms3 - Antibiotic Education ms3 - Prescription Opioid Use ms3 Prescriptions: - Prednisone 20 mg Oral Tablet - take 2 tablets by ORAL route once daily for 5 days; 10 tablet; Refills: 0, ms3 Product Selection Permitted Signatures: Humphrey Brooks DO DO ms3 Manda Jose, RN RN vc1
[2021-08-28 05:30] VITALS: BP 157/94; TEMP 97.9; O2SAT 100
== END 2021-08-28 05:17 | disposition home or self-care (01) ==
LOC: ER 03:56
DX: L50.0 Allergic urticaria (principal); I10 Essential (primary) hypertension
CPT/HCPCS: 99283; J7512

== ENCOUNTER 2022-12-14 11:48 | Emergency (ER) | payer OTHER ==
--- OUTSIDE RECORDS SUMMARY | 2022-12-14 11:52 | XMS REPORT | Continuity of Care Document ---
:1965 [facility] t Address [address] [place] [address] Care Team Providers Name Role Phone Joni BAILON, [facility] Primary Care Physician [phone] ADAN ABREU Attending Clinician Unavailable MATT GAN Attending Clinician Unavailable LAB39 Attending Clinician Unavailable KRISH BARAKAT Attending Clinician Unavailable BISHOP KANG Attending Clinician Unavailable JENNIFER MO Attending Clinician Unavailable LAB90 Attending Clinician Unavailable Amanuel Camargo Attending Clinician Unavailable KNOW, DOES_NOT Admitting Clinician Unavailable Payers Payer Name Policy Type Policy Number Effective Date Expiration Date Dari mikhail [facility] 9 [id number] 2022 00:00:00 SILVER $[id number] BASIC 94 Problems Condition Condition Condition Status Onset Resolution Last Treating Co mments Source Name Details Category Date Date Treatment Clinician Date Heart Heart Disease Active Cristina disease disease 10-12 Seybold 00:00: - 00 Externa l High High Disease Active Cristina cholestero cholestero 10-12 Se ybold l l 00:00: - 00 Externa l Hypertensi Hypertensi Disease Active K elsey on on 10-12 Seybold 00:00: - 00 Externa l Type 2 Type 2 Disease Active Cristina diabetes diabetes 10-12 Seybol d mellitus mellitus 00:00: - (multi (multi 00 Externa HCC) HCC) l Prediabete Prediabete Disease Active Kev abarca s s 10-12 Seybold 00:00: - 00 Externa l Obesity Obesity Disease Active Cristina (BMI (BMI 10-12 Seybold 30.0-34.9) 30.0-34.9) 00:00: - 00 Externa l 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 april Allergies, Adverse Reactions, Alerts This patient has no known allergies or adverse reactions. Social History Social Habit Start Date Stop Date Quantity Comments Source Gender identity Cristina sawant - External Sexual orientation Cristinamichael Santiago - External Alcohol intake 2022-12-12 2022-12-12 Ex-drinker Cristinamichael Flaherty bold 00:00:00 00:00:00 (finding) - External History of Social 2022-10-23 2022-10-23 Cristina Santiago function 00:00:00 00:00:00 - External Tobacco use and 2022-10-11 2022-10-11 Smokeless tobacco Gene moriah Santiago exposure 00:00:00 00:00:00 non-user - External Sex Ass[birth year] At [birth year] Cristina sawant 00:00:00 00:00:00 - External Smoking Status Start Date Stop Date Source Never smoked tobacco Cristina duron - External Medications Ordered Filled Start Stop Current Ordering Indication Dosage Frequency Signature Comments Components Source Medication Medication Date Date Medication? Clinician (SIG) Name Name Losartan 2022-02- No [id number] 100mg Take 1 K elsey Potassium 02-11 tablet Seybold (COZAAR) 16:10: 00:00 (100 mg - 100 MG oral 49 :00 total) by Ext bernadette Tablet mouth l daily. Aspirin 2022-02 Yes [id number] 81mg Take 1 Deon sey (Aspirin -07 tablet (81 Seybo ld 81) 81 MG 15:40: mg total) - oral Tablet 43 by mouth Exte rna Delayed daily. l Response Metoprolol 2022-02 Yes [id number] 25mg Take 1 K elsey Tartrate 1-07 tablet (25 Seybo ld (LOPRESSOR) 15:40: mg total) - 25 MG oral 43 by mouth 2 Ext bernadette Tablet times l daily. Clopidogrel 2022-02 Yes [id number] 75mg Take 1 Cristina Bisulfate 1-07 tablet (75 Seyb old (PLAVIX) 75 15:40: mg total) - MG oral 43 by mouth Externa Tablet daily. l Atorvastati 2022-02 Yes [id number] 40mg Take 1 Cristina n Calcium 1-07 tablet (40 Seyb old 40 MG oral 15:40: mg total) - Tablet 43 by mouth Externa daily. l hydroCHLORO 2022-02 Yes [id number] 25mg Take 1 Cristina thiazide 25 1-07 tablet (25 Se ybold MG oral 00:00: mg total) - Tablet 00 by mouth Externa every l morning. Losartan 2022-02 Yes [id number] 100mg Take 1 Ke lsey Potassium 1-07 tablet Seybold (COZAAR) 00:00: (100 mg - 100 MG oral 00 total) by Ext bernadette Tablet mouth l daily. Amlodipine 2022-02 Yes [id number] 10mg Take 1 K elsey Besylate 10 1-07 tablet (10 Se ybold MG oral 00:00: mg total) - Tablet 00 by mouth Externa daily. l Cyclobenzap 2022-02 Yes [id number] 5mg Q.5D Take 1 Cristina rine HCl 5 1-07 tablet (5 Seyb old MG oral 00:00: mg total) - Tablet 00 by mouth 2 Externa times l daily as needed for muscle spasms. methylPREDN 2022-02 Yes [id number] 1{bruno} Take 1 bruno Cristina ISolone 4 1-07 by mouth Seybol d MG oral 00:00: See Admin - Tablet 00 Instructio Externa Therapy ns Use as l Pack directed. Aspirin 2022-02 Yes [id number] 81mg Take 1 Deon sey (Aspirin 0-24 tablet (81 Seybo ld 81) 81 MG 07:53: mg total) - oral Tablet 12 by mouth Exte rna Delayed daily. l Response Metoprolol 2022-02 Yes [id number] 25mg Take 1 K elsey Tartrate 0-24 tablet (25 Seybo ld (LOPRESSOR) 07:53: mg total) - 25 MG oral 12 by mouth 2 Ext bernadette Tablet times l daily. Clopidogrel 2022-02 Yes [id number] 75mg Take 1 Cristina Bisulfate 0-24 tablet (75 Seyb old (PLAVIX) 75 07:53: mg total) - MG oral 12 by mouth Externa Tablet daily. l Losartan 2022-02 Yes [id number] 100mg Take 1 Ke lsey Potassium 0-24 tablet Seybold (COZAAR) 07:53: (100 mg - 100 MG oral 12 total) by Ext bernadette Tablet mouth l daily. Atorvastati 2022-02 Yes [id number] 40mg Take 1 Cristina n Calcium 0-24 tablet (40 Seyb old 40 MG oral 07:53: mg total) - Tablet 12 by mouth Externa daily. l Aspirin Yes [id number] 81mg Take 1 Deon sey (Aspirin 9-15 tablet (81 Seybo ld 81) 81 MG 14:30: mg total) - oral Tablet 33 by mouth Exte rna Delayed daily. l Response Metoprolol Yes [id number] 25mg Take 1 K elsey Tartrate 9-15 tablet (25 Seybo ld (LOPRESSOR) 14:30: mg total) - 25 MG oral 33 by mouth 2 Ext bernadette Tablet times l daily. Clopidogrel Yes [id number] 75mg Take 1 Cristina Bisulfate 9-15 tablet (75 Seyb old (PLAVIX) 75 14:30: mg total) - MG oral 33 by mouth Externa Tablet daily. l Losartan Yes [id number] 100mg Take 1 Ke lsey Potassium 9-15 tablet Seybold (COZAAR) 14:30: (100 mg - 100 MG oral 33 total) by Ext bernadette Tablet mouth l daily. Atorvastati Yes [id number] 40mg Take 1 Cristina n Calcium 9-15 tablet (40 Seyb old 40 MG oral 14:30: mg total) - Tablet 33 by mouth Externa daily. l hydroCHLORO 2022-2022- No 12.5mg Take 1 K elsey thiazide -08 13-07 tablet Seybold 12.5 MG 13:46: 00:00 (12.5 mg - oral Tablet 19 :00 total) by Ext bernadette mouth l daily. Amlodipine 0 2022- No 5mg Take 1 Madeline ey Besylate 10-12- tablet (5 Seybo ld (NORVASC) 5 13:13: 00:00 mg total) - MG oral 47 :00 by mouth Externa Tablet daily. l Aspirin 2022-0 Yes [id number] 81mg Take 1 Deon sey (Aspirin -07 tablet (81 Seybo ld 81) 81 MG 13:13: mg total) - oral Tablet 08 by mouth Exte rna Delayed daily. l Response Metoprolol 0 Yes [id number] 25mg Take 1 K elsey Tartrate - tablet (25 Seybo ld (LOPRESSOR) 13:13: mg total) - 25 MG oral 08 by mouth 2 Ext bernadette Tablet times l daily. Clopidogrel 0 Yes [id number] 75mg Take 1 Cristina Bisulfate - tablet (75 Seyb old (PLAVIX) 75 13:13: mg total) - MG oral 08 by mouth Externa Tablet daily. l Losartan 0 Yes [id number] 100mg Take 1 Ke lsey Potassium 10-12 tablet Seybold (COZAAR) 13:13: (100 mg - 100 MG oral 08 total) by Ext bernadette Tablet mouth l daily. Atorvastati Yes [id number] 40mg Take 1 Cristina n Calcium -07 tablet (40 Seyb old 40 MG oral 13:13: mg total) - Tablet 08 by mouth Externa daily. l Metformin 2022-0 2022- No 500mg Take 1 Madeline ey HCl 500 MG 10-06 tablet Seybol d oral Tablet 00:00: 00:00 (500 mg - 00 :00 total) by Externa mouth l daily. Amlodipine 2022-0 Yes [id number] Deon sey Besylate 10 8-10 Seybold MG oral 00:00: - Tablet 00 Externa l Amlodipine 2022-0 Yes [id number] Deon sey Besylate 10 8-10 Seybold MG oral 00:00: - Tablet 00 Externa l Amlodipine 2022-0 Yes [id number] Deon sey Besylate 10 8-10 Seybold MG oral 00:00: - Tablet 00 Externa l Amlodipine 2022-0 2022- No [id number] Ke lsey Besylate 10 8-10 11-07 Seybold MG oral 00:00: 00:00 - Tablet 00 :00 Externa l Tadalafil 5 2022-0 Yes [id number] 5mg Take 1 Cristina MG oral 7-29 tablet (5 Seybold Tablet 00:00: mg total) - 00 by mouth Externa daily. l Tadalafil 5 2022-0 Yes [id number] 5mg Take 1 Cristina MG oral 7-29 tablet (5 Seybold Tablet 00:00: mg total) - 00 by mouth Externa daily. l Tadalafil 5 2022-0 Yes [id number] 5mg Take 1 Cristina MG oral 7-29 tablet (5 Seybold Tablet 00:00: mg total) - 00 by mouth Externa daily. l Tadalafil 5 2022-0 Yes [id number] 5mg Take 1 Cristina MG oral 7-29 tablet (5 Seybold Tablet 00:00: mg total) - 00 by mouth Externa daily. l hydroCHLORO 2022-0 Yes [id number] 25mg Take 1 Critsina thiazide 25 7-15 tablet (25 Se ybold MG oral 00:00: mg total) - Tablet 00 by mouth Externa every l morning. hydroCHLORO 2022-0 Yes [id number] 25mg Take 1 Cristina thiazide 25 7-15 tablet (25 Se ybold MG oral 00:00: mg total) - Tablet 00 by mouth Externa every l morning. hydroCHLORO 2022-0 Yes [id number] 25mg Take 1 Cristina thiazide 25 7-15 tablet (25 Se ybold MG oral 00:00: mg total) - Tablet 00 by mouth Externa every l morning. hydroCHLORO 2022-0 2022- No [id number] 25mg Take 1 Cristina thiazide 25 7-15 11-07 tablet (25 S eybold MG oral 00:00: 00:00 mg total) - Tablet 00 :00 by mouth Externa every l morning. Dose 2021-0 No Unknown 6- 00:00: 00 Dose 2-0 No Unknown 6- 00:00: 00 Dose 2-0 No Unknown 6- 00:00: 00 Dose 2-0 No Unknown 6- 00:00: 00 Dose 2-0 No Unknown 6- 00:00: 00 Dose 2022-0 No Unknown 6-03 00:00: 00 Dose 2022-0 No Unknown 6-03 00:00: 00 Dose 2022-0 No Unknown 6-03 00:00: 00 Dose 2022-0 No Unknown 6-03 00:00: 00 Dose 2022-0 No Unknown 6-03 00:00: 00 Dose 2022-0 No Unknown 6-03 00:00: 00 Dose 2022-0 No Unknown 6-03 00:00: 00 Dose 2022-0 No Unknown 4-16 00:00: 00 atorvastati 2022-0 No 1mg n 40 mg 4-16 tablet 00:00: 00 Brilinta 90 2022-0 No 1mg mg tablet 4-16 00:00: 00 aspirin 81 2022-0 No 1mg mg 4-16 tablet,amee 00:00: yed release 00 metoprolol 2022-0 No 1mg tartrate 25 4-16 mg tablet 00:00: 00 Dose 2022-0 No Unknown 4-16 00:00: 00 Dose 2022-0 No Unknown 4-16 00:00: 00 Dose 2022-0 No Unknown 4-16 00:00: 00 Dose 2022-0 No Unknown 4-16 00:00: 00 Dose 2022-0 No Unknown 4-16 00:00: 00 Dose 2022-0 No Unknown 4-16 00:00: 00 Dose 2022-0 No Unknown 4-16 00:00: 00 losartan 2022-0 No 1mg 100 mg 4-16 tablet 00:00: 00 atorvastati 2022-0 No 1mg n 40 mg 4-16 tablet 00:00: 00 Brilinta 90 2022-0 No 1mg mg tablet 4-16 00:00: 00 aspirin 81 2022-0 No 1mg mg 4-16 tablet,amee 00:00: yed release 00 metoprolol 2022-0 No 1mg tartrate 25 4-16 mg tablet 00:00: 00 Dose 2022-0 No Unknown 4-16 00:00: 00 Dose 2022-0 No Unknown 4-16 00:00: 00 Dose 2022-0 No Unknown 4-16 00:00: 00 Dose 2022-0 No Unknown 4-16 00:00: 00 Dose 2022-0 No Unknown 4-16 00:00: 00 Dose 2022-0 No Unknown 4-16 00:00: 00 Dose 2022-0 No Unknown 4-16 00:00: 00 Dose 2022-0 No Unknown 4-15 00:00: 00 Dose 2022-0 No Unknown 4-15 00:00: 00 trazodone 2022-0 No 1mg 50 mg 2-24 tablet 00:00: 00 Dose 2022-0 No Unknown 2-24 00:00: 00 trazodone 2022-0 No 1mg 50 mg 2-24 tablet 00:00: 00 trazodone 2022-0 No 1mg 50 mg 2-24 tablet 00:00: 00 benzonatate 2022-0 No 1mg 100 mg 1-07 capsule 00:00: 00 benzonatate 2022-0 No 1mg 100 mg 1-07 capsule 00:00: 00 trazodone 2021-1 No 1mg 50 mg 2-30 tablet 00:00: 00 Dose 2021-1 No Unknown 2-30 00:00: 00 amlodipine 2021-1 No 1mg 10 mg 2-22 tablet 00:00: 00 losartan 2021-1 No 1mg 100 mg 2-22 tablet 00:00: 00 hydrochloro 2021-1 No 1mg thiazide 2-22 12.5 mg 00:00: capsule 00 amlodipine 2021-1 No 1mg 10 mg 2-22 tablet 00:00: 00 Dose 2021-1 No Unknown 2-22 00:00: 00 hydrochloro 2021-1 No 1mg thiazide 2-22 12.5 mg 00:00: capsule 00 amlodipine 2021-1 No 1mg 10 mg 0-12 tablet 00:00: 00 losartan 2021-1 No 1mg 100 mg 0-12 tablet 00:00: 00 hydrochloro 2021-1 No 1mg thiazide 0-12 12.5 mg 00:00: capsule 00 amlodipine 2021-1 No 1mg 10 mg 0-12 tablet 00:00: 00 losartan 2021-1 No 1mg 100 mg 0-12 tablet 00:00: 00 hydrochloro 2021-1 No 1mg thiazide 0-12 12.5 mg 00:00: capsule 00 amlodipine 2021-0 No 1mg 10 mg 4-08 tablet 00:00: 00 losartan 2021-0 No 1mg 100 mg 4-08 tablet 00:00: 00 hydrochloro 2020-0 No 1mg thiazide 4-08 12.5 mg 00:00: capsule 00 amlodipine 2020-0 No 1mg 10 mg 4-08 tablet 00:00: 00 Dose 2020-0 No Unknown 4-08 00:00: 00 hydrochloro 2020-0 No 1mg thiazide 4-08 12.5 mg 00:00: capsule 00 amlodipine 2019-1 No 1mg 10 mg 1-23 tablet 00:00: 00 amlodipine 2019-1 No 1mg 10 mg 1-23 tablet 00:00: 00 Dose 2020-1 No Unknown 0-30 00:00: 00 amlodipine 2019-1 No 1mg 5 mg tablet 0-30 00:00: 00 amlodipine 2019-1 No 1mg 5 mg tablet 0-30 00:00: 00 Dose 2019-1 No Unknown 0-30 00:00: 00 hydrochloro 2019-1 No 1mg thiazide 0-30 12.5 mg 00:00: capsule 00 hydrochloro 2019-1 No 1mg thiazide 0-30 12.5 mg 00:00: capsule 00 losartan 2019-1 No 1mg 100 mg 0-30 tablet 00:00: 00 amlodipine 2019-1 No 1mg 5 mg tablet 0-30 00:00: 00 amlodipine 2020-1 No 1mg 5 mg tablet 0-30 00:00: 00 losartan 2019-1 No 1mg 100 mg 0-30 tablet 00:00: 00 hydrochloro 2019-1 No 1mg thiazide 0-30 12.5 mg 00:00: capsule 00 hydrochloro 2019-1 No 1mg thiazide 0-30 12.5 mg 00:00: capsule 00 Vital Signs Vital Name Observation Time Observation Value Comments Source Diastolic blood 2022-12-12 21:36:00 60 mm[Hg] Penny Santiago - pressure External Heart rate 2022-12-12 21:36:00 61 /min Cristina paul - External Body temperature 2022-12-12 21:36:00 36.5 Lucy Madeline colton Santiago - External Respiratory rate 2022-12-12 21:36:00 15 /min Madeline Santiago - External Body height 2022-12-12 21:36:00 175.3 cm Cristina paul - External Body weight 2022-12-12 21:36:00 98.431 kg Cristina Chapin eybold - External BMI 2022-12-12 21:36:00 32.05 kg/m2 Cristina S eybold - External Systolic blood 2022-12-12 21:36:00 106 mm[Hg] Cristina Seybold - pressure External Body height 2022-11-28 12:54:00 175.3 cm Cristina Chapin eybold - External Body weight 2022-11-28 12:54:00 96.344 kg Cristina Chapin eybold - External BMI 2022-11-28 12:54:00 31.37 kg/m2 Cristina Chapin eybold - External Oxygen saturation in 2022-11-28 12:54:00 97 /min Cristina Tylerhavendomi - Arterial blood by External Pulse oximetry Systolic blood 2022-11-28 12:54:00 145 mm[Hg] Cristina Seybold - pressure External Diastolic blood 2022-11-28 12:54:00 73 mm[Hg] Penny y Seybold - pressure External Heart rate 2022-11-28 12:54:00 50 /min Cristina Chapin eybold - External Body temperature 2022-11-28 12:54:00 36.67 Lucy Madeline ey Seybold - External Respiratory rate 2022-11-28 12:54:00 16 /min Madeline ey Seybold - External Systolic blood 2022-10-20 19:28:00 122 mm[Hg] Cristina Seybold - pressure External Diastolic blood 2022-10-20 19:28:00 84 mm[Hg] Deon y Seybold - pressure External Heart rate 2022-10-20 19:28:00 59 /min Cristina S eybold - External Body temperature 2022-10-20 19:28:00 36.5 Lucy Madeline ey Seybold - External Respiratory rate 2022-10-20 19:28:00 15 /min Madeline ey Seybold - External Body height 2022-10-20 19:28:00 175.3 cm Cristina Chapin eybold - External Body weight 2022-10-20 19:28:00 98.431 kg Cristina Chapin eybold - External BMI 2022-10-20 19:28:00 32.05 kg/m2 Cristina segurabold - External Systolic blood 2022-10-12 18:12:00 133 mm[Hg] Cristina Marold - pressure External Diastolic blood 2022-10-12 18:12:00 77 mm[Hg] Penny Santiago - pressure External Heart rate 2022-10-12 18:12:00 60 /min Cristina segurabold - External Body temperature 2022-10-12 18:12:00 37 Lucy Madeline segura Seybold - External Respiratory rate 2022-10-12 18:12:00 20 /min Madeline Santiago - External Body height 2022-10-12 18:12:00 175.3 cm Cristina segurabold - External Body weight 2022-10-12 18:12:00 105.235 kg Cristina segurabocarissa - External BMI 2022-10-12 18:12:00 34.26 kg/m2 Cristina segurabocarissa - External Oxygen saturation in 2022-10-12 18:12:00 99 /min Cristina Santiago - Arterial blood by External Pulse oximetry BP Systolic 2021-10-25 15:03:00 157 mm[Hg] BP Diastolic 2021-10-25 15:03:00 79 mm[Hg] Weight Measured 2021-10-25 15:03:00 208.60 pounds Height Measured 2021-10-25 15:03:00 70.00 inches Body Temperature 2021-10-25 15:03:00 98.20 degrees Heart Rate 2021-10-25 15:03:00 69.00 /min Respiratory Rate 2021-10-25 15:03:00 18.00 /min BP Systolic 2021-10-10 16:55:00 158 mm[Hg] BP Diastolic 2021-10-10 16:55:00 87 mm[Hg] Weight Measured 2021-10-10 16:55:00 209.40 pounds Height Measured 2021-10-10 16:55:00 70.00 inches Body Temperature 2021-10-10 16:55:00 97.90 degrees Heart Rate 2021-10-10 16:55:00 73.00 /min Respiratory Rate 2021-10-10 16:55:00 16.00 /min BP Systolic 2021-07-08 14:53:00 187 mm[Hg] BP Diastolic 2021-07-08 14:53:00 100 mm[Hg] Weight Measured 2021-07-08 14:53:00 209.20 pounds Height Measured 2021-07-08 14:53:00 70.00 inches Body Temperature 2021-07-08 14:53:00 98.20 degrees Heart Rate 2021-07-08 14:53:00 67.00 /min Respiratory Rate 2021-07-08 14:53:00 18.00 /min Respiratory Rate 2021-05-21 11:13:00 17.00 /min BP Systolic 2021-05-21 11:13:00 156 mm[Hg] BP Diastolic 2021-05-21 11:13:00 99 mm[Hg] Weight Measured 2021-05-21 11:13:00 214.60 pounds Height Measured 2021-05-21 11:13:00 70.00 inches Body Temperature 2021-05-21 11:13:00 98.40 degrees Heart Rate 2021-05-21 11:13:00 59.00 /min BP Systolic 2021-03-31 08:10:00 160 mm[Hg] BP Diastolic 2021-03-31 08:10:00 92 mm[Hg] Weight Measured 2021-03-31 08:10:00 216.00 pounds Height Measured 2021-03-31 08:10:00 70.00 inches Body Temperature 2021-03-31 08:10:00 97.80 degrees Heart Rate 2021-03-31 08:10:00 71.00 /min Respiratory Rate 2021-03-31 08:10:00 16.00 /min BP Systolic 2021-02-10 10:35:00 BP Diastolic 2021-02-10 10:35:00 Weight Measured 2021-02-10 10:35:00 207.60 pounds Height Measured 2021-02-10 10:35:00 70.00 inches Body Temperature 2021-02-10 10:35:00 Heart Rate 2021-02-10 10:35:00 Respiratory Rate 2021-02-10 10:35:00 BP Systolic 2021-02-03 11:09:00 141 mm[Hg] BP Diastolic 2021-02-03 11:09:00 90 mm[Hg] Weight Measured 2021-02-03 11:09:00 207.60 pounds Height Measured 2021-02-03 11:09:00 70.00 inches Body Temperature 2021-02-03 11:09:00 97.80 degrees Heart Rate 2021-02-03 11:09:00 67.00 /min Respiratory Rate 2021-02-03 11:09:00 18.00 /min BP Systolic 2021-01-26 14:59:00 131 mm[Hg] BP Diastolic 2021-01-26 14:59:00 84 mm[Hg] Weight Measured 2021-01-26 14:59:00 211.60 pounds Height Measured 2021-01-26 14:59:00 70.00 inches Body Temperature 2021-01-26 14:59:00 98.70 degrees Heart Rate 2021-01-26 14:59:00 68.00 /min Respiratory Rate 2021-01-26 14:59:00 18.00 /min BP Systolic 2020-05-13 14:07:00 126 mm[Hg] BP Diastolic 2020-05-13 14:07:00 72 mm[Hg] Weight Measured 2020-05-13 14:07:00 215.80 pounds Height Measured 2020-05-13 14:07:00 70.00 inches Body Temperature 2020-05-13 14:07:00 98.20 degrees Heart Rate 2020-05-13 14:07:00 68.00 /min Respiratory Rate 2020-05-13 14:07:00 18.00 /min BP Systolic 2019-12-29 08:17:00 158 mm[Hg] BP Diastolic 2019-12-29 08:17:00 89 mm[Hg] Weight Measured 2019-12-29 08:17:00 181.00 pounds Height Measured 2019-12-29 08:17:00 70.00 inches Body Temperature 2019-12-29 08:17:00 98.30 degrees Heart Rate 2019-12-29 08:17:00 67.00 /min Respiratory Rate 2019-12-29 08:17:00 17.00 /min BP Systolic 2019-12-05 15:18:00 169 mm[Hg] BP Diastolic 2019-12-05 15:18:00 110 mm[Hg] Weight Measured 2019-12-05 15:18:00 205.00 pounds Height Measured 2019-12-05 15:18:00 70.00 inches Body Temperature 2019-12-05 15:18:00 98.40 degrees Heart Rate 2019-12-05 15:18:00 74.00 /min Respiratory Rate 2019-12-05 15:18:00 16.00 /min Procedures This patient has no known procedures. Plan of Care Planned Activity Planned Date Details Comments Source Goal Plan of Care Note [code = 47748-0] Goal Plan of Care Note [code = 69745-4] Goal Plan of Care Note [code = 10209-6] Goal Plan of Care Note [code = 02967-5] Goal Plan of Care Note [code = 08675-2] Goal Plan of Care Note [code = 39575-8] Goal Plan of Care Note [code = 68381-0] Goal Plan of Care Note [code = 75985-0] Goal Plan of Care Note [code = 73598-8] Goal Plan of Care Note [code = 94347-8] Goal Plan of Care Note [code = 42444-9] Goal Plan of Care Note [code = 20078-6] Goal Plan of Care Note [code = 62462-4] Goal Plan of Care Note [code = 64538-4] Goal Plan of Care Note [code = 88072-2] Goal Plan of Care Note [code = 79693-8] Goal Plan of Care Note [code = 97910-1] Goal Plan of Care Note [code = 40758-8] Goal Plan of Care Note [code = 84703-3] Goal Plan of Care Note [code = 88329-7] Goal Plan of Care Note [code = 92650-8] Goal Plan of Care Note [code = 13720-3] Goal Plan of Care Note [code = 59015-5] Goal Plan of Care Note [code = 22872-1] Goal Plan of Care Note [code = 45152-7] Goal Plan of Care Note [code = 76262-0] Goal Plan of Care Note [code = 00096-8] Goal Plan of Care Note [code = 22891-9] Goal Plan of Care Note [code = 41554-6] Goal Plan of Care Note [code = 27883-4] Goal Plan of Care Note [code = 70633-8] Goal Plan of Care Note [code = 55885-0] Goal Plan of Care Note [code = 08597-7] Goal Plan of Care Note [code = 08350-9] Goal Plan of Care Note [code = 01964-0] Goal Plan of Care Note [code = 43777-6] Goal Plan of Care Note [code = 88655-4] Goal Plan of Care Note [code = 89327-2] Goal Plan of Care Note [code = 06080-7] Goal Plan of Care Note [code = 39322-3] Goal Plan of Care Note [code = 40507-2] Goal Plan of Care Note [code = 07587-2] Goal Plan of Care Note [code = 05453-3] Goal Plan of Care Note [code = 22066-8] Goal Plan of Care Note [code = 99949-2] Goal Plan of Care Note [code = 71538-3] Goal Plan of Care Note [code = 05468-2] Goal Plan of Care Note [code = 57704-5] Goal Plan of Care Note [code = 41825-3] Goal Plan of Care Note [code = 17109-3] Goal Plan of Care Note [code = 50469-6] Goal Plan of Care Note [code = 60435-8] Goal Plan of Care Note [code = 27916-8] Goal Plan of Care Note [code = 75692-8] Encounters Start End Encounter Admission Attending Care Care Encounter Source Date/Time Date/Time Type Type Clinicians Facility Department ID 2023-03-01 2023-03-01 Outpatient CRISTINA ABREU [id number] Cristina 15:30:00 15:30:00 ADAN Seybol d 2022-12-12 2022-12-12 Outpatient CRISTINA GAN [id number] Cristina 15:30:00 15:30:00 MATT Seybol d 2022-11-29 2022-11-29 Outpatient CRISTINA ABREU [id number] Cristina 00:00:00 00:00:00 ADAN Seybol d 2022-11-28 2022-11-28 Outpatient LAB39 CRISTINA WARD [id number] Cristina 09:30:00 09:30:00 Seybol d 2022-11-28 2022-11-28 Outpatient LAB39 CRISTINA CRISTINA [id number] Cristina 09:00:00 09:00:00 Seybol d 2022-11-28 2022-11-28 Outpatient BRADY CRISTINA WARD [id number] Cristina 08:00:00 08:00:00 ADAN Seybol d 2022-11-10 2022-11-10 Outpatient CRISTINA BARAKAT [id number] Cristina 16:00:00 16:00:00 KRISH Seybol d 2022-11-02 2022-11-02 Outpatient PEARLCRISTINA [id number] Cristina 14:45:00 14:45:00 BISHOP Seybol d 2022-10-20 2022-10-20 Outpatient CRISTINA BARAKAT [id number] Cristina 14:30:00 14:30:00 KRISH Seybol d 2022-10-17 2022-10-17 Outpatient [place] [id number] Cristina 00:00:00 00:00:00 MUHAMMED Seybo ld 2022-10-16 2022-10-16 Outpatient ROSHNI CRISTINA WARD [id number] Cristina 00:00:00 00:00:00 KRISH Seybol d 2022-10-13 2022-10-13 Outpatient LAB90 CRISTINA WARD [id number] Cristina 10:00:00 10:00:00 Seybol d 2022-10-12 2022-10-12 Outpatient CRISTINA BARAKAT [id number] Cristina 13:30:00 13:30:00 KRISH Seybol d 2021-11-17 2021-11-17 Outpatient SFA SFA [id number] George 14:28:02 14:28:02 1013 F Ajay 2021-11-09 2021-11-09 Outpatient Amanuel Kenny [facility] RADI LA0 [id number] [facility] 15:57:00 15:57:00 54 [facility] 2021-10-25 2021-10-25 Outpatient [id number] 00:00:00 00:00:00 Visit [id number] -[id number] 2021-10-10 2021-10-10 Outpatient [id number] 00:00:00 00:00:00 Visit [id number]-419b-[id number] -[id number] Results Test Description Test Time Test Comments Results Result [facility] e Comments - US RETROPERITONEAL 2021-11-09 COM 17:41:00 [facility] 1965 Sex: M * Name: FABIO DEL CID [facility] : 1965 Age/S: 56 / M [id number] Unit #: [id number] Loc: [place] [address] Phys: Amanuel Camargo MD Acct: [id number] Dis Date: Status: REG CLI PHONE #: [phone] Exam Date: 11/09/2021 1645 FAX #: Reason: HEMATURIA EXAMS: CPT: [id number] [facility] [address] RENAL ULTRASOUND Location Code: B2 CLINICAL HISTORY: HEMATURIA COMPARISON: None. COMMENT: Real-time sonographic images of the kidneys was performed. The kidneys are of normal echogenicity with no focal mass, calcification, or hydronephrosis. The right kidney measures 11.4 x 6.7 x 6.5 cm. The left kidney measures 12.4 x 5.8 x 4.9 cm. Cortical thickness is normal on each side. The bladder is decompressed. IMPRESSION: Normal renal ultrasound at 1741 Reported and signed by: Kody Mcdonald M.D. CC: Amanuel Camargo MD Technologist: Ludwin Sullivan Trnscb Date/Time: 11/09/2021 (174) NealRA5 PAGE 1 Signed Report Name: FABIO DEL CID [place] : 1965 Age/S: 56 / M [address] [address] Unit #: [id number] Loc: [place] [address] Phys: Amanuel Camargo MD Acct: [id number] Dis Date: Status: REG CLI PHONE #: [phone] Exam Date: 11/09/2021 1645 FAX #: Reason: HEMATURIA EXAMS: CPT: [id number] [employer] [id number] (Continued) Orig Print D/T: S: 11/09/2021 (174) Probe: PAGE 2 Signed Report HIV 1/2 4TH GEN, RFLX CONF 2021-10-28 06:12:01 Test Item Value Reference Range Interpretation Comme nts HIV 1/2 4TH GEN, RFLX CONF (test code = 3514) NON-REACTIVE NON-REAC TIVE HEPATITIS PANEL, [id number] 06:12:01 Test Item Value Reference Range Interpretation Comments HEPATITIS A IgM (test NON-REACTIVE NON-REACTIVE code = 80382) HEPATITIS B CORE IgM NON-REACTIVE NON-REACTIVE (test code = 4644) HEPATITIS B SURF AG NON-REACTIVE NON-REACTIVE (test code = 2739) HEPATITIS C ANTIBODY NON-REACTIVE NON-REACTIVE (test code = 4675) INTERPRETATION (NOTE) Hepatitis A HEPATITIS A: (test serology shows no code = 2552) evidence of acu te hepatitis A. INTERPRETATION (NOTE) Hepatitis B HEPATITIS B: (test serology shows no code = 00649) evidence of ac [place] hepatitis B and no indication of exposure to hepatitis B vir us in the previous si xto eight months. INTERPRETATION (NOTE) Hepatitis C HEPATITIS C: (test serology shows no code = 48993) evidence of ex posure to hepatitisC v irus at this time. I t can take up to 12 m onths after exposure tothe hepatitis C vir us for antibodies to become detectab le in the blood in ce rtain patients. UNLES S OTHERWISE INDIC ATED, ALL TESTING PERFORMED [facility], [facility]. [address] [facility] [place] [address] [facility] DIRECTOR: Richard SEGURA NUMBER [id number] [place] [id number] LIPID [id number] 05:58:13 Test Item Value Reference Range Interpretation Comments CHOLESTEROL (test 105 MG/DL <200 code = 2210) TRIGLYCERIDES (test 101 MG/DL <150 code = 2232) HDL CHOLESTEROL (test 35 MG/DL >39 L code = 2220) CALC LDL CHOL (test 52 MG/DL <100 NOTE: C ALCULATED LDL code = 2237) IS BASED ON ANGELA-RICHMOND METHOD WHICHINCLUDES ADJUSTABLE TRIGLYCERIDE:VL DL CHOLESTEROL RAT IO.THIS FACTOR VARIES B Y MEASURED TRIGLY CERIDE AND NON-HDLCHOL ESTEROL CONCENTRATIONS WITH INCREASED CALCU LATED LDL SEENIN HIGH ER TRIGLYCERIDE OR LOWER NON-HDL SPECIME NS. FOR MOREINFORMATION , SEE CLIENT ANNOUNCE MENT AT [email or web address] RISK RATIO LDL/HDL 1.49 RATIO <3.55 (test code = 2238) COMPREHENSIVE METABOLIC [id number] 05:58:13 Test Item Value Reference Range Interpretation Comments GLUCOSE (test code = 92 MG/DL 70-99 2216) BUN (test code = 18 MG/DL 6-20 2207) CREATININE (test 0.96 MG/DL 0.80-1.40 code = 2214) eGFR (2020 CKD-EPI) 92 ML/MIN/1.73 >60 (test code = 21304) CALC BUN/CREAT (test 19 RATIO 6-28 code = 2235) SODIUM (test code = 142 MEQ/L 954-642 3241) POTASSIUM (test code 4.1 MEQ/L 3.5-5.4 = 2228) CHLORIDE (test code 104 MEQ/L 95-107 = 2215) CARBON DIOXIDE (test 24 MEQ/L 19-31 code = 2206) CALCIUM (test code = 9.6 MG/DL 8.5-10.5 2208) PROTEIN, TOTAL (test 7.6 G/DL 6.1-8.3 code = 2229) ALBUMIN (test code = 4.6 G/DL 3.5-5.2 2200) CALC GLOBULIN (test 3.0 G/DL 1.9-3.7 code = 2240) CALC A/G RATIO (test 1.5 RATIO 1.0-2.6 code = 2234) BILIRUBIN, TOTAL 0.5 MG/DL See_Comment [Automated message] (test code = 2207) The syste m which generated this result transmit anthony reference range : <=1.2. The refe rence range was not u sed to interpret th is result as normal/abnormal . ALKALINE PHOSPHATASE 71 U/L 40-123 (test code = 2204) AST (test code = 19 U/L 9-50 2217) ALT (test code = 24 U/L 5-50 2218) CBC W/AUTO DIFF WITH [id number] 02:00:18 Test Item Value Reference Range Interpretation Comments WBC (test code = 5.7 K/UL 3.5-11.0 1001) RBC (test code = 4.32 M/UL 4.50-6.10 L 1002) HEMOGLOBIN (test code 13.9 G/DL 13.5-17.0 = 1003) HEMATOCRIT (test code 39.9 % 40.0-51.0 L = 1004) MCV (test code = 92.4 fL 80.0-99.0 1005) MCH (test code = 32.2 PG 25.0-33.0 1006) MCHC (test code = 34.8 G/DL 31.0-36.0 1007) RDW (test code = 12.7 % 11.5-15.0 1038) NEUTROPHILS (test 54.0 % code = 1008) LYMPHOCYTES (test 35.2 % code = 1010) MONOCYTES (test code 5.4 % = 1011) EOSINOPHILS (test 4.7 % code = 1012) BASOPHILS (test code 0.5 % = 1013) IMMATURE GRANULOCYTES 0.2 % (test code = 1036) NUCLEATED RBCS (test 0.0 /100 WBC'S See_Comment [Aut omated code = 1065) message] The sy stem which generated this result transmitted reference range : 0.0. The refere nce range was not u sed to interpret th is result as normal/abnormal . PLATELET COUNT (test 220 K/UL 130-400 code = 1015) ABSOLUTE NEUTROPHILS 3.08 K/UL 1.50-7.50 (test code = 1066) ABSOLUTE LYMPHOCYTES 2.01 K/UL 1.00-4.00 (test code = 1067) ABSOLUTE MONOCYTES 0.31 K/UL 0.20-1.00 (test code = 1068) ABSOLUTE EOSINOPHILS 0.27 K/UL 0.00-0.50 (test code = 1040) ABSOLUTE BASOPHILS 0.03 K/UL 0.00-0.20 (test code = 1069) ABS IMMATURE 0.01 K/UL 0.00-0.10 GRANULOCYTES (test code = 1020) ABS NUCLEATED RBCS 0.00 K/UL 0.00-0.11 (test code = 59102) HEMOGLOBIN [id number] 03:20:20 Test Item Value Reference Range Interpretation Comments HEMOGLOBIN A1c (test 6.1 % 4.2-5.6 H UNLESS OTHERWISE code = 66469) INDICATED, ALL TESTING PERFORMED [facility] [employer], [id number] [place] [address] [place] DIRECTOR: HALEY JETT M.D. CLIA NUMBER [id number] [place] O. [id number] HEMOGLOBIN [id number] 00:00:00 Test Item Value Reference Range Interpretation Comments HEMOGLOBIN A1c (test code = 12275) 6.1 % HEMOGLOBIN [id number] 00:00:00 Test Item Value Reference Range Interpretation Comments HEMOGLOBIN A1c (test code = 13284) 6.1 % HEMOGLOBIN [id number] 00:00:00 Test Item Value Reference Range Interpretation Comments HEMOGLOBIN A1c (test code = 20568) 6.1 % HEMOGLOBIN [id number] 14:41:37 Test Item Value Reference Range Interpretation Comments HEMOGLOBIN A1c TEST NOT 4.2-5.6 Unable to per form (test code = PERFORMED % [place], [place] [address]) not received.Ch arges adjusted as applicable. UNL ESS OTHERWISE INDIC ATED, ALL TESTING PERFORMED [facility] [employer], [facility]. [address] [place] [address] [facility] [place] DIRECTOR: HALEY JETT M.D. CLIA NUMBER [id number] [place] [id number] HEMOGLOBIN [id number] 00:00:00 Test Item Value Reference Range Interpretation Comments HEMOGLOBIN A1c (test TEST NOT PERFORMED % code = 95315) HEMOGLOBIN [id number] 00:00:00 Test Item Value Reference Range Interpretation Comments HEMOGLOBIN A1c (test TEST NOT PERFORMED % code = 47576) HEMOGLOBIN [id number] 00:00:00 Test Item Value Reference Range Interpretation Comments HEMOGLOBIN A1c (test TEST NOT PERFORMED % code = 16436) [id number] 03:18:15 Test Item Value Reference Range Interpretation Comments TESTOSTERONE (test 299 NG/DL 300-890 L UNLESS O THERWISE code = 2830) INDICATED, ALL TESTING PERFORMED [facility], [facility]. [address] [place], [place] [id number] [place] [address] DIRECTOR: HALEY JETT M.D. IA NUMBER [id number] [place] O. [id number] FSH + LH [id number] 03:17:56 Test Item Value Reference Range Interpretation Comments FOLLICLE STIM HORMONE (test code = 5.9 IU/L 1.5-12.4 2700) LUTEINIZING HORMONE (test code = 5.3 IU/L 1.2-8.6 2776) [id number] 03:17:56 Test Item Value Reference Range Interpretation Comments PROLACTIN (test 8.1 NG/ML 4.0-26.0 NOTE: Metho dology is Sanna code = 2800) Jerry Electroch emiluminescence Immunoassay (EC CLARKE). Values obtained with d ifferent assays/manufact urers cannot be used interchang eably. Results should not be u sed as sole basis to establ fred the presence or abs ence of malignancy. TSH, THIRD [id number] 03:17:56 Test Item Value Reference Range Interpretation Comments TSH, THIRD GENERATION (test code 2.490 UIU/ML 0.400-4.100 = 2821) FSH + LH [id number] 00:00:00 Test Item Value Reference Range Interpretation Comments FOLLICLE STIM HORMONE (test code = 5.9 IU/L 2700) LUTEINIZING HORMONE (test code = 5.3 IU/L 2776) FSH + LH [id number] 00:00:00 Test Item Value Reference Range Interpretation Comments FOLLICLE STIM HORMONE (test code = 5.9 IU/L 2700) LUTEINIZING HORMONE (test code = 5.3 IU/L 2776) [id number] 00:00:00 Test Item Value Reference Range Interpretation Comments PROLACTIN (test code = 2800) 8.1 NG/ML [id number] 00:00:00 Test Item Value Reference Range Interpretation Comments PROLACTIN (test code = 2800) 8.1 NG/ML [id number] 00:00:00 Test Item Value Reference Range Interpretation Comments TSH, THIRD GENERATION (test code 2.490 UIU/ML = 2821) [id number] 00:00:00 Test Item Value Reference Range Interpretation Comments TSH, THIRD GENERATION (test code 2.490 UIU/ML = 2821) [id number] 00:00:00 Test Item Value Reference Range Interpretation Comments TSH, THIRD GENERATION (test code 2.490 UIU/ML = 2821) [id number] 00:00:00 Test Item Value Reference Range Interpretation Comments TESTOSTERONE (test code = 2830) 299 NG/DL [id number] 00:00:00 Test Item Value Reference Range Interpretation Comments TESTOSTERONE (test code = 2830) 299 NG/DL FSH + LH [id number] 00:00:00 Test Item Value Reference Range Interpretation Comments FOLLICLE STIM HORMONE (test code = 5.9 IU/L 2700) LUTEINIZING HORMONE (test code = 5.3 IU/L 2776) FSH + LH [id number] 00:00:00 Test Item Value Reference Range Interpretation Comments FOLLICLE STIM HORMONE (test code = 5.9 IU/L 2700) LUTEINIZING HORMONE (test code = 5.3 IU/L 2776) [id number] 00:00:00 Test Item Value Reference Range Interpretation Comments PROLACTIN (test code = 2800) 8.1 NG/ML [id number] 00:00:00 Test Item Value Reference Range Interpretation Comments PROLACTIN (test code = 2800) 8.1 NG/ML [id number] 00:00:00 Test Item Value Reference Range Interpretation Comments TSH, THIRD GENERATION (test code 2.490 UIU/ML = 2821) [id number] 00:00:00 Test Item Value Reference Range Interpretation Comments TSH, THIRD GENERATION (test code 2.490 UIU/ML = 2821) [id number] 00:00:00 Test Item Value Reference Range Interpretation Comments TSH, THIRD GENERATION (test code 2.490 UIU/ML = 2821) [id number] 00:00:00 Test Item Value Reference Range Interpretation Comments TESTOSTERONE (test code = 2830) 299 NG/DL [id number] 00:00:00 Test Item Value Reference Range Interpretation Comments TESTOSTERONE (test code = 2830) 299 NG/DL HEPATITIS PANEL, [id number] 04:56:50 Test Item Value Reference Range Interpretation Comments HEPATITIS A IgM (test NON-REACTIVE NON-REACTIVE code = 82218) HEPATITIS B CORE IgM NON-REACTIVE NON-REACTIVE (test code = 4644) HEPATITIS B SURF AG NON-REACTIVE NON-REACTIVE (test code = 2739) HEPATITIS C ANTIBODY NON-REACTIVE NON-REACTIVE (test code = 4675) INTERPRETATION (NOTE) Hepatitis A HEPATITIS A: (test serology shows no code = 2552) evidence of acu te hepatitis A. INTERPRETATION (NOTE) Hepatitis B HEPATITIS B: (test serology shows no code = 21468) evidence of ac [place] hepatitis B and no indication of exposure to hepatitis B vir us in the previous si xto eight months. INTERPRETATION (NOTE) Hepatitis C HEPATITIS C: (test serology shows no code = 76616) evidence of ex posure to hepatitisC v irus at this time. I t can take up to 12 m onths after exposure tothe hepatitis C vir us for antibodies to become detectab le in the blood in ce rtain patients. UNLES S OTHERWISE INDIC ATED, ALL TESTING PERFORMED [facility], [place]. [address] [place] [id number] [place] [address] DIRECTOR: Richard SEGURA NUMBER [id number] [place] [id number] HEMOGLOBIN [id number] 04:39:16 Test Item Value Reference Range Interpretation Comments HEMOGLOBIN A1c (test code = 93104) 6.1 % 4.2-5.6 H LIPID [id number] 04:05:39 Test Item Value Reference Range Interpretation [...] MOREINFORMATION , SEE CLIENT ANNOUNCE MENT AT [email or web address]-[email or web address] RISK RATIO LDL/HDL 2.71 RATIO <3.55 (test code = 2238) COMPREHENSIVE METABOLIC [id number] 04:05:39 Test Item Value Reference Range Interpretation Comments GLUCOSE (test code = 75 MG/DL 70-99 2216) BUN (test code = 16 MG/DL 6-20 2207) CREATININE (test 0.99 MG/DL 0.80-1.40 EFFECTIVE code = 2214) 01/17/2021, [facility] HAS IMPLEMENTED THE NKF-ASN RECOMME NDED KD-EPI EGF R REFIT CALCULATI ON THAT DOES NOT INCLUDE A COEFFICIENT FOR RACE. FOR MORE INFORMATION, SE E ANNOUNCEMENT [email or web address] eGFR (2020 CKD-EPI) 89 ML/MIN/1.73 >60 (test code = 91933) CALC BUN/CREAT (test 16 RATIO 6-28 code = 2235) SODIUM (test code = 143 MEQ/L 961-684 3882) POTASSIUM (test code 4.2 MEQ/L 3.5-5.4 = 2227) CHLORIDE (test code 107 MEQ/L 95-107 = 2215) CARBON DIOXIDE (test 25 MEQ/L 19-31 code = 2206) CALCIUM (test code = 9.0 MG/DL 8.5-10.5 2208) PROTEIN, TOTAL (test 7.2 G/DL 6.1-8.3 code = 2229) ALBUMIN (test code = 4.5 G/DL 3.5-5.2 2200) CALC GLOBULIN (test 2.7 G/DL 1.9-3.7 code = 2240) CALC A/G RATIO (test 1.7 RATIO 1.0-2.6 code = 2234) BILIRUBIN, TOTAL <0.2 MG/DL See_Comment [Automated message] (test code = 220) The syste m which generated this result transmit anthony reference range : <=1.2. The refe rence range was not u sed to interpret th is result as normal/abnormal . ALKALINE PHOSPHATASE 66 U/L 40-123 (test code = 2203) AST (test code = 18 U/L 9-50 2217) ALT (test code = 20 U/L 5-50 2218) CBC W/AUTO DIFF WITH [id number] 02:59:22 Test Item Value Reference Range Interpretation [...] LL BE ELIMINATED REDUNDANT TOABS OLUTE COUNTS.SEE [email or web address] _upda te LYMPHOCYTES (test 33.3 % code = 1010) MONOCYTES (test code 6.1 % = 1011) EOSINOPHILS (test 8.1 % code = 1012) BASOPHILS (test code 0.7 % = 1013) IMMATURE GRANYLOCYTES 0.2 % (test code = 1036) NUCLEATED RBCS (test 0.0 /100 See_Comment [Autom ated message] code = 1065) WBC'S The system whic h generated this result transmit anthony reference range [...] RBCS 0.02 K/UL 0.00-0.11 (test code = 91641) CBC W/AUTO [id number] 00:00:00 Test Item Value Reference Range Interpretation Comments WBC (test code = 1001) 5.9 K/UL RBC (test code = 1002) 4.13 M/UL HEMOGLOBIN (test code = 1003) 13.1 G/DL HEMATOCRIT (test code = 1004) 36.9 % MCV (test code = 1005) 89.3 fL MCH (test code = 1006) 31.7 PG MCHC (test code = 1007) 35.5 G/DL RDW (test code = 1038) 12.6 % NEUTROPHILS (test code = 1008) 51.6 % LYMPHOCYTES (test code = 1010) 33.3 % MONOCYTES (test code = 1011) 6.1 % EOSINOPHILS (test code = 1012) 8.1 % BASOPHILS (test code = 1013) 0.7 % IMMATURE GRANYLOCYTES (test 0.2 % code = 1036) NUCLEATED RBCS (test code = 0.0 /100WBC'S 1065) PLATELET COUNT (test code = 197 K/UL 1015) ABSOLUTE NEUTROPHILS (test code 3.07 K/UL = 1066) ABSOLUTE LYMPHOCYTES (test code 1.98 K/UL = 1067) ABSOLUTE MONOCYTES (test code = 0.36 K/UL 1068) ABSOLUTE EOSINOPHILS (test code 0.48 K/UL = 1040) ABSOLUTE BASOPHILS (test code = 0.04 K/UL 1069) ABS IMMATURE GRANULOCYTES (test 0.01 K/UL code = 1020) ABS NUCLEATED RBCS (test code = 0.02 K/UL 06915) CBC W/AUTO [id number] 00:00:00 Test Item Value Reference Range Interpretation Comments WBC (test code = 1001) 5.9 K/UL RBC (test code = 1002) 4.13 M/UL HEMOGLOBIN (test code = 1003) 13.1 G/DL HEMATOCRIT (test code = 1004) 36.9 % MCV (test code = 1005) 89.3 fL MCH (test code = 1006) 31.7 PG MCHC (test code = 1007) 35.5 G/DL RDW (test code = 1038) 12.6 % NEUTROPHILS (test code = 1008) 51.6 % LYMPHOCYTES (test code = 1010) 33.3 % MONOCYTES (test code = 1011) 6.1 % EOSINOPHILS (test code = 1012) 8.1 % BASOPHILS (test code = 1013) 0.7 % IMMATURE GRANYLOCYTES (test 0.2 % code = 1036) NUCLEATED RBCS (test code = 0.0 /100WBC'S 1065) PLATELET COUNT (test code = 197 K/UL 1015) ABSOLUTE NEUTROPHILS (test code 3.07 K/UL = 1066) ABSOLUTE LYMPHOCYTES (test code 1.98 K/UL = 1067) ABSOLUTE MONOCYTES (test code = 0.36 K/UL 1068) ABSOLUTE EOSINOPHILS (test code 0.48 K/UL = 1040) ABSOLUTE BASOPHILS (test code = 0.04 K/UL 1069) ABS IMMATURE GRANULOCYTES (test 0.01 K/UL code = 1020) ABS NUCLEATED RBCS (test code = 0.02 K/UL 19556) CBC W/AUTO [id number] 00:00:00 Test Item Value Reference Range Interpretation Comments WBC (test code = 1001) 5.9 K/UL RBC (test code = 1002) 4.13 M/UL HEMOGLOBIN (test code = 1003) 13.1 G/DL HEMATOCRIT (test code = 1004) 36.9 % MCV (test code = 1005) 89.3 fL MCH (test code = 1006) 31.7 PG MCHC (test code = 1007) 35.5 G/DL RDW (test code = 1038) 12.6 % NEUTROPHILS (test code = 1008) 51.6 % LYMPHOCYTES (test code = 1010) 33.3 % MONOCYTES (test code = 1011) 6.1 % EOSINOPHILS (test code = 1012) 8.1 % BASOPHILS (test code = 1013) 0.7 % IMMATURE GRANYLOCYTES (test 0.2 % code = 1036) NUCLEATED RBCS (test code = 0.0 /100WBC'S 1065) PLATELET COUNT (test code = 197 K/UL 1015) ABSOLUTE NEUTROPHILS (test code 3.07 K/UL = 1066) ABSOLUTE LYMPHOCYTES (test code 1.98 K/UL = 1067) ABSOLUTE MONOCYTES (test code = 0.36 K/UL 1068) ABSOLUTE EOSINOPHILS (test code 0.48 K/UL = 1040) ABSOLUTE BASOPHILS (test code = 0.04 K/UL 1069) ABS IMMATURE GRANULOCYTES (test 0.01 K/UL code = 1020) ABS NUCLEATED RBCS (test code = 0.02 K/UL 00216) HEMOGLOBIN [id number] 00:00:00 Test Item Value Reference Range Interpretation Comments HEMOGLOBIN A1c (test code = 66546) 6.1 % HEMOGLOBIN [id number] 00:00:00 Test Item Value Reference Range Interpretation Comments HEMOGLOBIN A1c (test code = 40626) 6.1 % HEMOGLOBIN [id number] 00:00:00 Test Item Value Reference Range Interpretation Comments HEMOGLOBIN A1c (test code = 45895) 6.1 % LIPID [id number] 00:00:00 Test Item Value Reference Range Interpretation Comments CHOLESTEROL (test code = 2210) 161 MG/DL TRIGLYCERIDES (test code = 2232) 211 MG/DL HDL CHOLESTEROL (test code = 2220) 35 MG/DL CALC LDL CHOL (test code = 2237) 95 MG/DL RISK RATIO LDL/HDL (test code = 2.71 RATIO 2238) LIPID [id number] 00:00:00 Test Item Value Reference Range Interpretation Comments CHOLESTEROL (test code = 2210) 161 MG/DL TRIGLYCERIDES (test code = 2232) 211 MG/DL HDL CHOLESTEROL (test code = 2220) 35 MG/DL CALC LDL CHOL (test code = 2237) 95 MG/DL RISK RATIO LDL/HDL (test code = 2.71 RATIO 2238) COMPREHENSIVE METABOLIC [id number] 00:00:00 Test Item Value Reference Range Interpretation Comments GLUCOSE (test code = 2217) 75 MG/DL BUN (test code = 2208) 16 MG/DL CREATININE (test code = 2214) 0.99 MG/DL eGFR (2020 CKD-EPI) (test code 89 ML/MIN/1.73 = 16739) CALC BUN/CREAT (test code = 16 RATIO 2235) SODIUM (test code = 2231) 143 MEQ/L POTASSIUM (test code = 2228) 4.2 MEQ/L CHLORIDE (test code = 2215) 107 MEQ/L CARBON DIOXIDE (test code = 25 MEQ/L 2206) CALCIUM (test code = 2209) 9.0 MG/DL PROTEIN, TOTAL (test code = 7.2 G/DL 2228) ALBUMIN (test code = 2201) 4.5 G/DL CALC GLOBULIN (test code = 2.7 G/DL 2240) CALC A/G RATIO (test code = 1.7 RATIO 2234) BILIRUBIN, TOTAL (test code = <0.2 MG/DL 2206) ALKALINE PHOSPHATASE (test 66 U/L code = 2204) AST (test code = 2218) 18 U/L ALT (test code = 2219) 20 U/L COMPREHENSIVE METABOLIC [id number] 00:00:00 Test Item Value Reference Range Interpretation Comments GLUCOSE (test code = 2217) 75 MG/DL BUN (test code = 2208) 16 MG/DL CREATININE (test code = 2214) 0.99 MG/DL eGFR (2020 CKD-EPI) (test code 89 ML/MIN/1.73 = 92747) CALC BUN/CREAT (test code = 16 RATIO 2235) SODIUM (test code = 2231) 143 MEQ/L POTASSIUM (test code = 2228) 4.2 MEQ/L CHLORIDE (test code = 2215) 107 MEQ/L CARBON DIOXIDE (test code = 25 MEQ/L 2205) CALCIUM (test code = 2209) 9.0 MG/DL PROTEIN, TOTAL (test code = 7.2 G/DL 2228) ALBUMIN (test code = 2201) 4.5 G/DL CALC GLOBULIN (test code = 2.7 G/DL 2240) CALC A/G RATIO (test code = 1.7 RATIO 2234) BILIRUBIN, TOTAL (test code = <0.2 MG/DL 2206) ALKALINE PHOSPHATASE (test 66 U/L code = 2204) AST (test code = 2218) 18 U/L ALT (test code = 2219) 20 U/L ACUTE HEPATITIS [id number] 00:00:00 Test Item Value Reference Range Interpretation Comments HEPATITIS A IgM (test code = NON-REACTIVE 62442) HEPATITIS B CORE IgM (test code NON-REACTIVE = 4644) HEPATITIS B SURF AG (test code = NON-REACTIVE 2739) HEPATITIS C ANTIBODY (test code NON-REACTIVE = 4675) INTERPRETATION HEPATITIS A: (NOTE) (test code = 2552) INTERPRETATION HEPATITIS B: (NOTE) (test code = 51471) INTERPRETATION HEPATITIS C: (NOTE) (test code = 10911) ACUTE HEPATITIS [id number] 00:00:00 Test Item Value Reference Range Interpretation Comments HEPATITIS A IgM (test code = NON-REACTIVE 70520) HEPATITIS B CORE IgM (test code NON-REACTIVE = 4644) HEPATITIS B SURF AG (test code = NON-REACTIVE 2739) HEPATITIS C ANTIBODY (test code NON-REACTIVE = 4675) INTERPRETATION HEPATITIS A: (NOTE) (test code = 2552) INTERPRETATION HEPATITIS B: (NOTE) (test code = 08961) INTERPRETATION HEPATITIS C: (NOTE) (test code = 49395) CBC W/AUTO [id number] 00:00:00 Test Item Value Reference Range Interpretation Comments WBC (test code = 1001) 5.9 K/UL RBC (test code = 1002) 4.13 M/UL HEMOGLOBIN (test code = 1003) 13.1 G/DL HEMATOCRIT (test code = 1004) 36.9 % MCV (test code = 1005) 89.3 fL MCH (test code = 1006) 31.7 PG MCHC (test code = 1007) 35.5 G/DL RDW (test code = 1038) 12.6 % NEUTROPHILS (test code = 1008) 51.6 % LYMPHOCYTES (test code = 1010) 33.3 % MONOCYTES (test code = 1011) 6.1 % EOSINOPHILS (test code = 1012) 8.1 % BASOPHILS (test code = 1013) 0.7 % IMMATURE GRANYLOCYTES (test 0.2 % code = 1036) NUCLEATED RBCS (test code = 0.0 /100WBC'S 1065) PLATELET COUNT (test code = 197 K/UL 1015) ABSOLUTE NEUTROPHILS (test code 3.07 K/UL = 1066) ABSOLUTE LYMPHOCYTES (test code 1.98 K/UL = 1067) ABSOLUTE MONOCYTES (test code = 0.36 K/UL 1068) ABSOLUTE EOSINOPHILS (test code 0.48 K/UL = 1040) ABSOLUTE BASOPHILS (test code = 0.04 K/UL 1069) ABS IMMATURE GRANULOCYTES (test 0.01 K/UL code = 1020) ABS NUCLEATED RBCS (test code = 0.02 K/UL 02875) CBC W/AUTO [id number] 00:00:00 Test Item Value Reference Range Interpretation Comments WBC (test code = 1001) 5.9 K/UL RBC (test code = 1002) 4.13 M/UL HEMOGLOBIN (test code = 1003) 13.1 G/DL HEMATOCRIT (test code = 1004) 36.9 % MCV (test code = 1005) 89.3 fL MCH (test code = 1006) 31.7 PG MCHC (test code = 1007) 35.5 G/DL RDW (test code = 1038) 12.6 % NEUTROPHILS (test code = 1008) 51.6 % LYMPHOCYTES (test code = 1010) 33.3 % MONOCYTES (test code = 1011) 6.1 % EOSINOPHILS (test code = 1012) 8.1 % BASOPHILS (test code = 1013) 0.7 % IMMATURE GRANYLOCYTES (test 0.2 % code = 1036) NUCLEATED RBCS (test code = 0.0 /100WBC'S 1065) PLATELET COUNT (test code = 197 K/UL 1015) ABSOLUTE NEUTROPHILS (test code 3.07 K/UL = 1066) ABSOLUTE LYMPHOCYTES (test code 1.98 K/UL = 1067) ABSOLUTE MONOCYTES (test code = 0.36 K/UL 1068) ABSOLUTE EOSINOPHILS (test code 0.48 K/UL = 1040) ABSOLUTE BASOPHILS (test code = 0.04 K/UL 1069) ABS IMMATURE GRANULOCYTES (test 0.01 K/UL code = 1020) ABS NUCLEATED RBCS (test code = 0.02 K/UL 12551) CBC W/AUTO [id number] 00:00:00 Test Item Value Reference Range Interpretation Comments WBC (test code = 1001) 5.9 K/UL RBC (test code = 1002) 4.13 M/UL HEMOGLOBIN (test code = 1003) 13.1 G/DL HEMATOCRIT (test code = 1004) 36.9 % MCV (test code = 1005) 89.3 fL MCH (test code = 1006) 31.7 PG MCHC (test code = 1007) 35.5 G/DL RDW (test code = 1038) 12.6 % NEUTROPHILS (test code = 1008) 51.6 % LYMPHOCYTES (test code = 1010) 33.3 % MONOCYTES (test code = 1011) 6.1 % EOSINOPHILS (test code = 1012) 8.1 % BASOPHILS (test code = 1013) 0.7 % IMMATURE GRANYLOCYTES (test 0.2 % code = 1036) NUCLEATED RBCS (test code = 0.0 /100WBC'S 1065) PLATELET COUNT (test code = 197 K/UL 1015) ABSOLUTE NEUTROPHILS (test code 3.07 K/UL = 1066) ABSOLUTE LYMPHOCYTES (test code 1.98 K/UL = 1067) ABSOLUTE MONOCYTES (test code = 0.36 K/UL 1068) ABSOLUTE EOSINOPHILS (test code 0.48 K/UL = 1040) ABSOLUTE BASOPHILS (test code = 0.04 K/UL 1069) ABS IMMATURE GRANULOCYTES (test 0.01 K/UL code = 1020) ABS NUCLEATED RBCS (test code = 0.02 K/UL 74125) HEMOGLOBIN [id number] 00:00:00 Test Item Value Reference Range Interpretation Comments HEMOGLOBIN A1c (test code = 66783) 6.1 % HEMOGLOBIN [id number] 00:00:00 Test Item Value Reference Range Interpretation Comments HEMOGLOBIN A1c (test code = 70303) 6.1 % HEMOGLOBIN [id number] 00:00:00 Test Item Value Reference Range Interpretation Comments HEMOGLOBIN A1c (test code = 08265) 6.1 % LIPID [id number] 00:00:00 Test Item Value Reference Range Interpretation Comments CHOLESTEROL (test code = 2210) 161 MG/DL TRIGLYCERIDES (test code = 2232) 211 MG/DL HDL CHOLESTEROL (test code = 2220) 35 MG/DL CALC LDL CHOL (test code = 2237) 95 MG/DL RISK RATIO LDL/HDL (test code = 2.71 RATIO 2238) LIPID [id number] 00:00:00 Test Item Value Reference Range Interpretation Comments CHOLESTEROL (test code = 2210) 161 MG/DL TRIGLYCERIDES (test code = 2232) 211 MG/DL HDL CHOLESTEROL (test code = 2220) 35 MG/DL CALC LDL CHOL (test code = 2237) 95 MG/DL RISK RATIO LDL/HDL (test code = 2.71 RATIO 2238) COMPREHENSIVE METABOLIC [id number] 00:00:00 Test Item Value Reference Range Interpretation Comments GLUCOSE (test code = 2217) 75 MG/DL BUN (test code = 2208) 16 MG/DL CREATININE (test code = 2214) 0.99 MG/DL eGFR (2020 CKD-EPI) (test code 89 ML/MIN/1.73 = 42178) CALC BUN/CREAT (test code = 16 RATIO 2235) SODIUM (test code = 2231) 143 MEQ/L POTASSIUM (test code = 2228) 4.2 MEQ/L CHLORIDE (test code = 2215) 107 MEQ/L CARBON DIOXIDE (test code = 25 MEQ/L 2205) CALCIUM (test code = 2209) 9.0 MG/DL PROTEIN, TOTAL (test code = 7.2 G/DL 2228) ALBUMIN (test code = 2201) 4.5 G/DL CALC GLOBULIN (test code = 2.7 G/DL 224) CALC A/G RATIO (test code = 1.7 RATIO 2234) BILIRUBIN, TOTAL (test code = <0.2 MG/DL 2206) ALKALINE PHOSPHATASE (test 66 U/L code = 2204) AST (test code = 2218) 18 U/L ALT (test code = 2219) 20 U/L COMPREHENSIVE METABOLIC [id number] 00:00:00 Test Item Value Reference Range Interpretation Comments GLUCOSE (test code = 2217) 75 MG/DL BUN (test code = 2208) 16 MG/DL CREATININE (test code = 2214) 0.99 MG/DL eGFR (2020 CKD-EPI) (test code 89 ML/MIN/1.73 = 98807) CALC BUN/CREAT (test code = 16 RATIO 2235) SODIUM (test code = 2231) 143 MEQ/L POTASSIUM (test code = 2228) 4.2 MEQ/L CHLORIDE (test code = 2215) 107 MEQ/L CARBON DIOXIDE (test code = 25 MEQ/L 2205) CALCIUM (test code = 2209) 9.0 MG/DL PROTEIN, TOTAL (test code = 7.2 G/DL 222) ALBUMIN (test code = 2201) 4.5 G/DL CALC GLOBULIN (test code = 2.7 G/DL 2240) CALC A/G RATIO (test code = 1.7 RATIO 2234) BILIRUBIN, TOTAL (test code = <0.2 MG/DL 7) ALKALINE PHOSPHATASE (test 66 U/L code = 2204) AST (test code = 2218) 18 U/L ALT (test code = 2219) 20 U/L ACUTE HEPATITIS [id number] 00:00:00 Test Item Value Reference Range Interpretation Comments HEPATITIS A IgM (test code = NON-REACTIVE 50271) HEPATITIS B CORE IgM (test code NON-REACTIVE = 4644) HEPATITIS B SURF AG (test code = NON-REACTIVE 2739) HEPATITIS C ANTIBODY (test code NON-REACTIVE = 4675) INTERPRETATION HEPATITIS A: (NOTE) (test code = 2552) INTERPRETATION HEPATITIS B: (NOTE) (test code = 39836) INTERPRETATION HEPATITIS C: (NOTE) (test code = 95074) ACUTE HEPATITIS [id number] 00:00:00 Test Item Value Reference Range Interpretation Comments HEPATITIS A IgM (test code = NON-REACTIVE 91252) HEPATITIS B CORE IgM (test code NON-REACTIVE = 4644) HEPATITIS B SURF AG (test code = NON-REACTIVE 2739) HEPATITIS C ANTIBODY (test code NON-REACTIVE = 4675) INTERPRETATION HEPATITIS A: (NOTE) (test code = 2552) INTERPRETATION HEPATITIS B: (NOTE) (test code = 03933) INTERPRETATION HEPATITIS C: (NOTE) (test code = 04891) HEMOGLOBIN [id number] 00:00:00 Test Item Value Reference Range Interpretation Comments HEMOGLOBIN A1c (test code = 45603) 5.8 % HEMOGLOBIN [id number] 00:00:00 Test Item Value Reference Range Interpretation Comments HEMOGLOBIN A1c (test code = 68015) 5.8 % HEMOGLOBIN [id number] 00:00:00 Test Item Value Reference Range Interpretation Comments HEMOGLOBIN A1c (test code = 44460) 5.8 % LIPID [id number] 00:00:00 Test Item Value Reference Range Interpretation Comments CHOLESTEROL (test code = 2210) 180 MG/DL TRIGLYCERIDES (test code = 2232) 161 MG/DL HDL CHOLESTEROL (test code = 2220) 39 MG/DL CALC LDL CHOL (test code = 2237) 113 MG/DL RISK RATIO LDL/HDL (test code = 2.90 RATIO 2238) LIPID [id number] 00:00:00 Test Item Value Reference Range Interpretation Comments CHOLESTEROL (test code = 2210) 180 MG/DL TRIGLYCERIDES (test code = 2232) 161 MG/DL HDL CHOLESTEROL (test code = 2220) 39 MG/DL CALC LDL CHOL (test code = 2237) 113 MG/DL RISK RATIO LDL/HDL (test code = 2.90 RATIO 2238) COMPREHENSIVE METABOLIC [id number] 00:00:00 Test Item Value Reference Range Interpretation Comments GLUCOSE (test code = 2217) 101 MG/DL BUN (test code = 2208) 17 MG/DL CREATININE (test code = 2214) 1.13 MG/DL eGFR AMER. (test code 83 ML/MIN/1.73 = 49989) eGFR NON- AMER. (test 72 ML/MIN/1.73 code = 97830) CALC BUN/CREAT (test code = 15 RATIO 2235) SODIUM (test code = 2231) 142 MEQ/L POTASSIUM (test code = 2228) 4.6 MEQ/L CHLORIDE (test code = 2215) 103 MEQ/L CARBON DIOXIDE (test code = 27 MEQ/L 2205) CALCIUM (test code = 2209) 10.0 MG/DL PROTEIN, TOTAL (test code = 8.0 G/DL 222) ALBUMIN (test code = 2201) 5.0 G/DL CALC GLOBULIN (test code = 3.0 G/DL 2240) CALC A/G RATIO (test code = 1.7 RATIO 2234) BILIRUBIN, TOTAL (test code = 0.4 MG/DL 220) ALKALINE PHOSPHATASE (test 67 U/L code = 2204) AST (test code = 2218) 25 U/L ALT (test code = 2219) 35 U/L COMPREHENSIVE METABOLIC [id number] 00:00:00 Test Item Value Reference Range Interpretation Comments GLUCOSE (test code = 2217) 101 MG/DL BUN (test code = 2208) 17 MG/DL CREATININE (test code = 2214) 1.13 MG/DL eGFR AMER. (test code 83 ML/MIN/1.73 = 51436) eGFR NON- AMER. (test 72 ML/MIN/1.73 code = 49964) CALC BUN/CREAT (test code = 15 RATIO 2235) SODIUM (test code = 2231) 142 MEQ/L POTASSIUM (test code = 2228) 4.6 MEQ/L CHLORIDE (test code = 2215) 103 MEQ/L CARBON DIOXIDE (test code = 27 MEQ/L 2205) CALCIUM (test code = 2209) 10.0 MG/DL PROTEIN, TOTAL (test code = 8.0 G/DL 2228) ALBUMIN (test code = 2201) 5.0 G/DL CALC GLOBULIN (test code = 3.0 G/DL 2239) CALC A/G RATIO (test code = 1.7 RATIO 2233) BILIRUBIN, TOTAL (test code = 0.4 MG/DL 2206) ALKALINE PHOSPHATASE (test 67 U/L code = 2204) AST (test code = 2218) 25 U/L ALT (test code = 2219) 35 U/L HEMOGLOBIN [id number] 00:00:00 Test Item Value Reference Range Interpretation Comments HEMOGLOBIN A1c (test code = 68146) 5.8 % HEMOGLOBIN [id number] 00:00:00 Test Item Value Reference Range Interpretation Comments HEMOGLOBIN A1c (test code = 06995) 5.8 % HEMOGLOBIN [id number] 00:00:00 Test Item Value Reference Range Interpretation Comments HEMOGLOBIN A1c (test code = 45502) 5.8 % LIPID [id number] 00:00:00 Test Item Value Reference Range Interpretation Comments CHOLESTEROL (test code = 2210) 180 MG/DL TRIGLYCERIDES (test code = 2232) 161 MG/DL HDL CHOLESTEROL (test code = 2220) 39 MG/DL CALC LDL CHOL (test code = 2237) 113 MG/DL RISK RATIO LDL/HDL (test code = 2.90 RATIO 2238) LIPID [id number] 00:00:00 Test Item Value Reference Range Interpretation Comments CHOLESTEROL (test code = 2210) 180 MG/DL TRIGLYCERIDES (test code = 2232) 161 MG/DL HDL CHOLESTEROL (test code = 2220) 39 MG/DL CALC LDL CHOL (test code = 2237) 113 MG/DL RISK RATIO LDL/HDL (test code = 2.90 RATIO 2238) COMPREHENSIVE METABOLIC [id number] 00:00:00 Test Item Value Reference Range Interpretation Comments GLUCOSE (test code = 2217) 101 MG/DL BUN (test code = 2208) 17 MG/DL CREATININE (test code = 2214) 1.13 MG/DL eGFR AMER. (test code 83 ML/MIN/1.73 = 71613) eGFR NON- AMER. (test 72 ML/MIN/1.73 code = 39482) CALC BUN/CREAT (test code = 15 RATIO 2235) SODIUM (test code = 2231) 142 MEQ/L POTASSIUM (test code = 2228) 4.6 MEQ/L CHLORIDE (test code = 2215) 103 MEQ/L CARBON DIOXIDE (test code = 27 MEQ/L 220) CALCIUM (test code = 2209) 10.0 MG/DL PROTEIN, TOTAL (test code = 8.0 G/DL 2228) ALBUMIN (test code = 2201) 5.0 G/DL CALC GLOBULIN (test code = 3.0 G/DL 2240) CALC A/G RATIO (test code = 1.7 RATIO 2234) BILIRUBIN, TOTAL (test code = 0.4 MG/DL 2206) ALKALINE PHOSPHATASE (test 67 U/L code = 2204) AST (test code = 2218) 25 U/L ALT (test code = 2219) 35 U/L COMPREHENSIVE METABOLIC [id number] 00:00:00 Test Item Value Reference Range Interpretation Comments GLUCOSE (test code = 2217) 101 MG/DL BUN (test code = 2208) 17 MG/DL CREATININE (test code = 2214) 1.13 MG/DL eGFR AMER. (test code 83 ML/MIN/1.73 = 81994) eGFR NON- AMER. (test 72 ML/MIN/1.73 code = 34679) CALC BUN/CREAT (test code = 15 RATIO 2235) SODIUM (test code = 2231) 142 MEQ/L POTASSIUM (test code = 2228) 4.6 MEQ/L CHLORIDE (test code = 2215) 103 MEQ/L CARBON DIOXIDE (test code = 27 MEQ/L 220) CALCIUM (test code = 2209) 10.0 MG/DL PROTEIN, TOTAL (test code = 8.0 G/DL 2228) ALBUMIN (test code = 2201) 5.0 G/DL CALC GLOBULIN (test code = 3.0 G/DL 2240) CALC A/G RATIO (test code = 1.7 RATIO 2234) BILIRUBIN, TOTAL (test code = 0.4 MG/DL 2206) ALKALINE PHOSPHATASE (test 67 U/L code = 2204) AST (test code = 2218) 25 U/L ALT (test code = 2219) 35 U/L COMPREHENSIVE METABOLIC PANEL [ADDED]2019-12-30 00:00:00 Test Item Value Reference Range Interpretation Comments GLUCOSE (test code = 2217) 127 MG/DL BUN (test code = 2208) 15 MG/DL CREATININE (test code = 2214) 0.94 MG/DL eGFR AMER. (test code 105 ML/MIN/1.73 = 26607) eGFR NON- AMER. (test 90 ML/MIN/1.73 code = 94033) CALC BUN/CREAT (test code = 16 RATIO 2235) SODIUM (test code = 2231) 140 MEQ/L POTASSIUM (test code = 2228) 4.3 MEQ/L CHLORIDE (test code = 2215) 102 MEQ/L CARBON DIOXIDE (test code = 29 MEQ/L 220) CALCIUM (test code = 2209) 9.4 MG/DL PROTEIN, TOTAL (test code = 7.7 G/DL 2228) ALBUMIN (test code = 2201) 4.6 G/DL CALC GLOBULIN (test code = 3.1 G/DL 0) CALC A/G RATIO (test code = 1.5 RATIO 2233) BILIRUBIN, TOTAL (test code = 0.3 MG/DL 2206) ALKALINE PHOSPHATASE (test 76 U/L code = 2204) AST (test code = 2218) 27 U/L ALT (test code = 2219) 36 U/L COMPREHENSIVE METABOLIC PANEL [ADDED]2019-12-30 00:00:00 Test Item Value Reference Range Interpretation Comments GLUCOSE (test code = 2217) 127 MG/DL BUN (test code = 2208) 15 MG/DL CREATININE (test code = 2214) 0.94 MG/DL eGFR AMER. (test code 105 ML/MIN/1.73 = 50590) eGFR NON- AMER. (test 90 ML/MIN/1.73 code = 60593) CALC BUN/CREAT (test code = 16 RATIO 2235) SODIUM (test code = 2231) 140 MEQ/L POTASSIUM (test code = 2228) 4.3 MEQ/L CHLORIDE (test code = 2215) 102 MEQ/L CARBON DIOXIDE (test code = 29 MEQ/L 2206) CALCIUM (test code = 2209) 9.4 MG/DL PROTEIN, TOTAL (test code = 7.7 G/DL 2228) ALBUMIN (test code = 2201) 4.6 G/DL CALC GLOBULIN (test code = 3.1 G/DL 2240) CALC A/G RATIO (test code = 1.5 RATIO 2234) BILIRUBIN, TOTAL (test code = 0.3 MG/DL 2206) ALKALINE PHOSPHATASE (test 76 U/L code = 2204) AST (test code = 2218) 27 U/L ALT (test code = 2219) 36 U/L LIPID PANEL [ADDED]2019-12-30 00:00:00 Test Item Value Reference Range Interpretation Comments CHOLESTEROL (test code = 2210) 167 MG/DL TRIGLYCERIDES (test code = 2232) 96 MG/DL HDL CHOLESTEROL (test code = 2220) 39 MG/DL CALC LDL CHOL (test code = 2237) 109 MG/DL RISK RATIO LDL/HDL (test code = 2.79 RATIO 2238) LIPID PANEL [ADDED]2019-12-30 00:00:00 Test Item Value Reference Range Interpretation Comments CHOLESTEROL (test code = 2210) 167 MG/DL TRIGLYCERIDES (test code = 2232) 96 MG/DL HDL CHOLESTEROL (test code = 2220) 39 MG/DL CALC LDL CHOL (test code = 2237) 109 MG/DL RISK RATIO LDL/HDL (test code = 2.79 RATIO 2238) CBC W/AUTO DIFF WITH PLATELETS [ADDED]2019-12-30 00:00:00 Test Item Value Reference Range Interpretation Comments WBC (test code = 1001) 5.4 K/UL RBC (test code = 1002) 4.51 M/UL HEMOGLOBIN (test code = 1003) 14.3 G/DL HEMATOCRIT (test code = 1004) 40.8 % MCV (test code = 1005) 90.5 fL MCH (test code = 1006) 31.7 PG MCHC (test code = 1007) 35.0 G/DL RDW (test code = 1038) 12.2 % NEUTROPHILS (test code = 1008) 51.2 % LYMPHOCYTES (test code = 1010) 38.0 % MONOCYTES (test code = 1011) 5.4 % EOSINOPHILS (test code = 1012) 5.0 % BASOPHILS (test code = 1013) 0.4 % PLATELET COUNT (test code = 1015) 220 K/UL CBC W/AUTO DIFF WITH PLATELETS [ADDED]2019-12-30 00:00:00 Test Item Value Reference Range Interpretation Comments WBC (test code = 1001) 5.4 K/UL RBC (test code = 1002) 4.51 M/UL HEMOGLOBIN (test code = 1003) 14.3 G/DL HEMATOCRIT (test code = 1004) 40.8 % MCV (test code = 1005) 90.5 fL MCH (test code = 1006) 31.7 PG MCHC (test code = 1007) 35.0 G/DL RDW (test code = 1038) 12.2 % NEUTROPHILS (test code = 1008) 51.2 % LYMPHOCYTES (test code = 1010) 38.0 % MONOCYTES (test code = 1011) 5.4 % EOSINOPHILS (test code = 1012) 5.0 % BASOPHILS (test code = 1013) 0.4 % PLATELET COUNT (test code = 1015) 220 K/UL CBC W/AUTO DIFF WITH PLATELETS [ADDED]2019-12-30 00:00:00 Test Item Value Reference Range Interpretation Comments WBC (test code = 1001) 5.4 K/UL RBC (test code = 1002) 4.51 M/UL HEMOGLOBIN (test code = 1003) 14.3 G/DL HEMATOCRIT (test code = 1004) 40.8 % MCV (test code = 1005) 90.5 fL MCH (test code = 1006) 31.7 PG MCHC (test code = 1007) 35.0 G/DL RDW (test code = 1038) 12.2 % NEUTROPHILS (test code = 1008) 51.2 % LYMPHOCYTES (test code = 1010) 38.0 % MONOCYTES (test code = 1011) 5.4 % EOSINOPHILS (test code = 1012) 5.0 % BASOPHILS (test code = 1013) 0.4 % PLATELET COUNT (test code = 1015) 220 K/UL HEMOGLOBIN A1c [ADDED]2019-12-30 00:00:00 Test Item Value Reference Range Interpretation Comments HEMOGLOBIN A1c (test code = 63172) 5.8 % HEMOGLOBIN A1c [ADDED]2019-12-30 00:00:00 Test Item Value Reference Range Interpretation Comments HEMOGLOBIN A1c (test code = 07222) 5.8 % HEMOGLOBIN A1c [ADDED]2019-12-30 00:00:00 Test Item Value Reference Range Interpretation Comments HEMOGLOBIN A1c (test code = 96520) 5.8 % COMPREHENSIVE METABOLIC PANEL [ADDED]2019-12-30 00:00:00 Test Item Value Reference Range Interpretation Comments GLUCOSE (test code = 2217) 127 MG/DL BUN (test code = 2208) 15 MG/DL CREATININE (test code = 2214) 0.94 MG/DL eGFR AMER. (test code 105 ML/MIN/1.73 = 47688) eGFR NON- AMER. (test 90 ML/MIN/1.73 code = 24953) CALC BUN/CREAT (test code = 16 RATIO 2235) SODIUM (test code = 2231) 140 MEQ/L POTASSIUM (test code = 2228) 4.3 MEQ/L CHLORIDE (test code = 2215) 102 MEQ/L CARBON DIOXIDE (test code = 29 MEQ/L 220) CALCIUM (test code = 2209) 9.4 MG/DL PROTEIN, TOTAL (test code = 7.7 G/DL 222) ALBUMIN (test code = 2201) 4.6 G/DL CALC GLOBULIN (test code = 3.1 G/DL 2240) CALC A/G RATIO (test code = 1.5 RATIO 2234) BILIRUBIN, TOTAL (test code = 0.3 MG/DL 2206) ALKALINE PHOSPHATASE (test 76 U/L code = 2204) AST (test code = 2218) 27 U/L ALT (test code = 2219) 36 U/L COMPREHENSIVE METABOLIC PANEL [ADDED]2019-12-30 00:00:00 Test Item Value Reference Range Interpretation Comments GLUCOSE (test code = 2217) 127 MG/DL BUN (test code = 2208) 15 MG/DL CREATININE (test code = 2214) 0.94 MG/DL eGFR AMER. (test code 105 ML/MIN/1.73 = 39798) eGFR NON- AMER. (test 90 ML/MIN/1.73 code = 56002) CALC BUN/CREAT (test code = 16 RATIO 2235) SODIUM (test code = 2231) 140 MEQ/L POTASSIUM (test code = 2228) 4.3 MEQ/L CHLORIDE (test code = 2215) 102 MEQ/L CARBON DIOXIDE (test code = 29 MEQ/L 2206) CALCIUM (test code = 2209) 9.4 MG/DL PROTEIN, TOTAL (test code = 7.7 G/DL 2228) ALBUMIN (test code = 2201) 4.6 G/DL CALC GLOBULIN (test code = 3.1 G/DL 2240) CALC A/G RATIO (test code = 1.5 RATIO 2234) BILIRUBIN, TOTAL (test code = 0.3 MG/DL 2206) ALKALINE PHOSPHATASE (test 76 U/L code = 2204) AST (test code = 2218) 27 U/L ALT (test code = 2219) 36 U/L LIPID PANEL [ADDED]2019-12-30 00:00:00 Test Item Value Reference Range Interpretation Comments CHOLESTEROL (test code = 2210) 167 MG/DL TRIGLYCERIDES (test code = 2232) 96 MG/DL HDL CHOLESTEROL (test code = 2220) 39 MG/DL CALC LDL CHOL (test code = 2237) 109 MG/DL RISK RATIO LDL/HDL (test code = 2.79 RATIO 2238) LIPID PANEL [ADDED]2019-12-30 00:00:00 Test Item Value Reference Range Interpretation Comments CHOLESTEROL (test code = 2210) 167 MG/DL TRIGLYCERIDES (test code = 2232) 96 MG/DL HDL CHOLESTEROL (test code = 2220) 39 MG/DL CALC LDL CHOL (test code = 2237) 109 MG/DL RISK RATIO LDL/HDL (test code = 2.79 RATIO 2238) CBC W/AUTO DIFF WITH PLATELETS [ADDED]2019-12-30 00:00:00 Test Item Value Reference Range Interpretation Comments WBC (test code = 1001) 5.4 K/UL RBC (test code = 1002) 4.51 M/UL HEMOGLOBIN (test code = 1003) 14.3 G/DL HEMATOCRIT (test code = 1004) 40.8 % MCV (test code = 1005) 90.5 fL MCH (test code = 1006) 31.7 PG MCHC (test code = 1007) 35.0 G/DL RDW (test code = 1038) 12.2 % NEUTROPHILS (test code = 1008) 51.2 % LYMPHOCYTES (test code = 1010) 38.0 % MONOCYTES (test code = 1011) 5.4 % EOSINOPHILS (test code = 1012) 5.0 % BASOPHILS (test code = 1013) 0.4 % PLATELET COUNT (test code = 1015) 220 K/UL CBC W/AUTO DIFF WITH PLATELETS [ADDED]2019-12-30 00:00:00 Test Item Value Reference Range Interpretation Comments WBC (test code = 1001) 5.4 K/UL RBC (test code = 1002) 4.51 M/UL HEMOGLOBIN (test code = 1003) 14.3 G/DL HEMATOCRIT (test code = 1004) 40.8 % MCV (test code = 1005) 90.5 fL MCH (test code = 1006) 31.7 PG MCHC (test code = 1007) 35.0 G/DL RDW (test code = 1038) 12.2 % NEUTROPHILS (test code = 1008) 51.2 % LYMPHOCYTES (test code = 1010) 38.0 % MONOCYTES (test code = 1011) 5.4 % EOSINOPHILS (test code = 1012) 5.0 % BASOPHILS (test code = 1013) 0.4 % PLATELET COUNT (test code = 1015) 220 K/UL CBC W/AUTO DIFF WITH PLATELETS [ADDED]2019-12-30 00:00:00 Test Item Value Reference Range Interpretation Comments WBC (test code = 1001) 5.4 K/UL RBC (test code = 1002) 4.51 M/UL HEMOGLOBIN (test code = 1003) 14.3 G/DL HEMATOCRIT (test code = 1004) 40.8 % MCV (test code = 1005) 90.5 fL MCH (test code = 1006) 31.7 PG MCHC (test code = 1007) 35.0 G/DL RDW (test code = 1038) 12.2 % NEUTROPHILS (test code = 1008) 51.2 % LYMPHOCYTES (test code = 1010) 38.0 % MONOCYTES (test code = 1011) 5.4 % EOSINOPHILS (test code = 1012) 5.0 % BASOPHILS (test code = 1013) 0.4 % PLATELET COUNT (test code = 1015) 220 K/UL HEMOGLOBIN A1c [ADDED]2019-12-30 00:00:00 Test Item Value Reference Range Interpretation Comments HEMOGLOBIN A1c (test code = 94486) 5.8 % HEMOGLOBIN A1c [ADDED]2019-12-30 00:00:00 Test Item Value Reference Range Interpretation Comments HEMOGLOBIN A1c (test code = 81490) 5.8 % HEMOGLOBIN A1c [ADDED]2019-12-30 00:00:00 Test Item Value Reference Range Interpretation Comments HEMOGLOBIN A1c (test code = 38446) 5.8 %
[2022-12-14 12:23] LABS: Absolute Lymphocytes (CBC) 2.3 K/uL (0.7-4.9); Hematocrit 41.3 % (39.6-49.0); Lymphocytes % 38.2 % (15.3-44.8); MCV 91.7 fL (80-100); MPV 7.3 fL (7.6-11.3); Platelets 228 thou/uL (152-406)
[2022-12-14 12:41] LABS: Albumin 3.9 g/dL (3.4-5.0); Bilirubin Direct 0.1 mg/dL (0-0.2); Bilirubin Indirect, Calculated 0.5 mg/dL (0.2-0.8); Bilirubin Total 0.6 mg/dL (0.2-1.0); Potassium 3.8 mEq/L (3.5-5.1); Protein, Total 8.2 g/dL (6.4-8.2); Troponin High Sensitivity 28.1 pg/mL (<58.9)
--- NOTE | 2022-12-14 13:47 | RAD REPORT ---
EXAM DESCRIPTION: RADChest Single View12/14/2022 1:37 pm CLINICAL HISTORY: CHEST PAIN COMPARISON: Chest Single View dated 07/08/2021; Chest Single View dated 05/22/2021; Chest Single View d ated 04/21/2021 TECHNIQUE: Portable AP view of the chest. FINDINGS: The lungs are clear. No pneumothorax or effusion. The cardiomediastinal contours are unre markable. IMPRESSION: No acute cardiopulmonary process.
--- NOTE | 2022-12-14 13:56 | ER ---
Nurse's Notes [facility] Name: Carlos Celis Age: 57 yrs Sex: Male : 1965 Arrival Date: 12/14/2022 Time: 11:48 Bed 13 Private MD: Diagnosis: Chest pain, unspecified Presentation: 12/14 12:01 Chief complaint:. Chief complaint: Patient states: i have pain in the right chest that kd3 radiates to the back shoulder and my blood pressure is higher than it normally is. I have had a stent in my heart. Ebola Screen: No symptoms or risks identified at this time. Initial Sepsis Screen: Does the patient meet any 2 criteria? No. Patient's initial sepsis screen is negative. Does the patient have a suspected source of infection? No. Patient's initial sepsis screen is negative. Risk Assessment: Do you want to hurt yourself or someone else? Patient reports no desire to harm self or others. Onset of symptoms was December 14, 2022. 12:01 Method Of Arrival: Ambulatory kd3 12:01 Acuity: SYLVIE 3 kd3 Triage Assessment: 12:02 General: Appears in no apparent distress. Behavior is calm, cooperative. Pain: kd3 Complains of pain in anterior aspect of right upper chest. Cardiovascular: Patient's skin is warm and dry. Historical: - Home Meds: 12:03 aspirin 81 mg Oral tab daily [Active]; atorvastatin 40 mg Oral tab 1 tab once daily kd3 [Active]; losartan 25 mg Oral tab [Active]; metoprolol tartrate 25 mg Oral tab 1 tab 2 times per day [Active]; - PMHx: 12:02 Hypertensive disorder; pre-diabetic; kd3 - PSHx: 12:02 Appendectomy; Stented artery; kd3 - Immunization history:: Adult Immunizations up to date. - Social history:: Smoking status: unknown. Screenin:00 [facility] ED Fall Risk Assessment (Adult) Score/Fall Risk Level 0 - 2 = Low Risk. Abuse eh3 screen: Denies threats or abuse. Denies injuries from another. Nutritional screening: No deficits noted. Tuberculosis screening: No symptoms or risk factors identified. Assessment: 14:00 General: Appears in no apparent distress. comfortable, Behavior is calm, cooperative, eh3 appropriate for age. Pain: Denies pain. Neuro: Level of Consciousness is awake, alert, obeys commands, Oriented to person, place, time, situation. Cardiovascular: Capillary refill < 3 seconds Patient's skin is warm and dry. Respiratory: Airway is patent Respiratory effort is even, unlabored, Respiratory pattern is regular, symmetrical. GI: Abdomen is round non-distended. Derm: Skin is pink, warm \T\ dry. Musculoskeletal: Circulation, motion, and sensation intact. Range of motion: intact in all extremities. Vital Signs: 12:01 BP 133 / 89; Pulse 75; Resp 16; Temp 97.7; Pulse Ox 100% on R/A; kd3 ED Course: 11:50 Patient arrived in ED. mr 11:58 Deejay Moore PA is PHCP. jr8 11:58 Dieudonne Garg MD is Attending Physician. jr8 12:02 Triage completed. kd3 12:03 Arm band placed on right wrist. kd3 12:03 EKG completed in triage. Results shown to MD. kd3 12:19 EKG done per protocol. Performed by ED Staff. Labs ordered per protocol. Drawn by ED iw staff. 13:38 XRAY Chest (1 view) In Process Unspecified. EDNJ 13:55 Casper Colunga MD is Referral Physician. 8 14:00 Patient has correct armband on for positive identification. Bed in low position. Call 3 light in reach. Provided Education on: use of call. Client placed on continuous cardiac and pulse oximetry monitoring. NIBP monitoring applied. 14:00 Patient maintains SpO2 saturation greater than 95% on room air. eh3 14:06 Letty Lonodn, REMBERTO is Primary Nurse. 3 14:30 No provider procedures requiring assistance completed. IV discontinued, intact, eh3 bleeding controlled, No redness/swelling at site. Pressure dressing applied. Administered Medications: No medications were administered Medication: 14:30 VIS not applicable for this client. eh3 Outcome: 13:56 Discharge ordered by . [facility] 14:30 Discharged to home ambulatory, eh3 14:30 Condition: stable 14:30 Discharge instructions given to patient, Instructed on discharge instructions, follow up and referral plans. Demonstrated understanding of instructions, follow-up care, 14:31 Patient left the ED. iw Signatures: Dispatcher [employer] EDNJ Barbara Haddad, Reg Reg mr Delores Bee, RN RN iw Deejay Moore PA PA jr8 Donna Lopes, RN RN kd3 Letty London, RN RN eh3
--- NOTE | 2022-12-14 13:56 | EDPHYS ---
Physician Documentation [facility] Name: Carlos Celis Age: 57 yrs Sex: Male : 1965 Arrival Date: 12/14/2022 Time: 11:48 Bed 13 Private MD: ED Physician Dieudonne Garg HPI: 12/14 13:51 This 57 yrs old Male presents to ER via Ambulatory with complaints of Chest jr8 Pain. 13:51 The patient or guardian reports chest pain that is located primarily in the anterior jr8 chest wall, right. Onset: acutely, 2 day(s) ago. The pain radiates to the right scapula. Associated signs and symptoms: The patient has no apparent associated signs or symptoms. The chest pain is described as stabbing. Duration: The patient or guardian reports multiple episodes, that are intermittent, the episodes last approximately 5 second(s). Modifying factors: The symptoms are alleviated by nothing. the symptoms are aggravated by nothing. Severity of pain: At its worst the pain was moderate in the emergency department the pain has resolved. The patient has experienced a previous episode. The patient has not recently seen a physician. This is a 57-year-old male patient with a history of prediabetes, hypertension, coronary artery disease with stent placed a little over a year ago. Came in with 2 days of on and off sharp stabbing chest pain to the right side. Comes and goes and without anything that makes it feel better or worse.. Historical: - Home Meds: 12:03 aspirin 81 mg Oral tab daily [Active]; atorvastatin 40 mg Oral tab 1 tab once daily kd3 [Active]; losartan 25 mg Oral tab [Active]; metoprolol tartrate 25 mg Oral tab 1 tab 2 times per day [Active]; - PMHx: 12:02 Hypertensive disorder; pre-diabetic; kd3 - PSHx: 12:02 Appendectomy; Stented artery; kd3 - Immunization history:: Adult Immunizations up to date. - Social history:: Smoking status: unknown. ROS: 13:51 Eyes: Negative for injury, pain, redness, and discharge, ENT: Negative for injury, jr8 pain, and discharge, Neck: Negative for injury, pain, and swelling, Respiratory: Negative for shortness of breath, cough, wheezing, and pleuritic chest pain, Abdomen/GI: Negative for abdominal pain, nausea, vomiting, diarrhea, and constipation, Back: Negative for injury and pain, MS/Extremity: Negative for injury and deformity, Skin: Negative for injury, rash, and discoloration, Neuro: Negative for headache, weakness, numbness, tingling, and seizure, 13:51 Cardiovascular: Positive for chest pain, Negative for edema, orthopnea, palpitations, paroxysmal nocturnal dyspnea, Exam: 13:51 Constitutional: This is a well developed, well nourished patient who is awake, alert, jr8 and in no acute distress. Cardiovascular: Regular rate and rhythm with a normal S1 and S2. No gallops, murmurs, or rubs. Normal PMI, no JVD. No pulse deficits. Respiratory: Lungs have equal breath sounds bilaterally, clear to auscultation and percussion. No rales, rhonchi or wheezes noted. No increased work of breathing, no retractions or nasal flaring. Abdomen/GI: Soft, non-tender, with normal bowel sounds. No distension or tympany. No guarding or rebound. No evidence of tenderness throughout. Skin: Warm, dry with normal turgor. Normal color with no rashes, no lesions, and no evidence of cellulitis. MS/ Extremity: Pulses equal, no cyanosis. Neurovascular intact. Full, normal range of motion. Neuro: Awake and alert, GCS 15, oriented to person, place, time, and situation. Motor strength 5/5 in all extremities. Sensory grossly intact. Vital Signs: 12:01 BP 133 / 89; Pulse 75; Resp 16; Temp 97.7; Pulse Ox 100% on R/A; kd3 MDM: 11:58 Patient medically screened. jr8 13:51 ECG:. The patient was not given aspirin in the Emergency Department. Patient reports jr8 taking aspirin within the past 24 hours. Data reviewed: vital signs, nurses notes, lab test result(s), EKG, radiologic studies, plain films, and as a result, I will discharge patient. Consideration of Admission/Observation Escalation of care including admission/observation considered. Independent interpretation of the following test(s) in the Emergency Department EKG: See my EKG interpretation above X-Ray: My interpretation is No acute cardiopulmonary findings . Counseling: I had a detailed discussion with the patient and/or guardian regarding the historical points, exam findings, and any diagnostic results supporting the discharge/admit diagnosis, lab results, radiology results, the need for outpatient follow up, a purchasing associate, to return to the emergency department if symptoms worsen or persist or if there are any questions or concerns that arise at home. Special discussion: Based on the patient's history, exam, and Dx evaluation, there is no indication for emergent intervention or inpatient Tx. It is understood by the patient/guardian that if the Sx's persist or worsen they need to return immediately for re-evaluation. 12/14 12:07 Order name: Basic Metabolic Panel; Complete Time: 12:47 12/14 12:07 Order name: CBC with Diff; Complete Time: 12:24 12/14 12:07 Order name: LFT's; Complete Time: 12:47 12/14 12:07 Order name: Troponin HS; Complete Time: 12:47 12/14 12:07 Order name: XRAY Chest (1 view); Complete Time: 13:51 12/14 12:07 Order name: Cardiac monitoring; Complete Time: 14:06 12/14 12:07 Order name: EKG - Nurse/Tech; Complete Time: 12:07 12/14 12:07 Order name: IV Saline Lock; Complete Time: 12:29 12/14 12:07 Order name: Labs collected and sent; Complete Time: 12:18 12/14 12:07 Order name: O2 Per Protocol; Complete Time: 14:06 12/14 12:07 Order name: O2 Sat Monitoring; Complete Time: 14:06 EC:51 Rate is 71 beats/min. Rhythm is regular, Normal Sinus Rhythm. QRS [place] is Normal. PA jr8 interval is normal at 194 msec. QRS interval is normal at 86 msec. QT interval is normal at 402 msec. No Q waves. T waves are Normal. No ST changes noted. Clinical impression: Normal ECG. Interpreted by me. Reviewed by me. Administered Medications: No medications were administered Disposition Summary: 12/14/22 13:56 Discharge Ordered Notes: Location: Home jr8 Problem: new jr8 Symptoms: have improved jr8 Condition: Stable jr8 Diagnosis - Chest pain, unspecified jr8 Followup: jr8 - With: Casper Colunga MD - When: 1 - 2 days - Reason: Recheck today's complaints, Continuance of care, Re-evaluation by your physician Discharge Instructions: - Discharge Summary Sheet jr8 - Nonspecific Chest Pain, Adult jr8 Forms: - Medication Reconciliation Form jr8 - Thank You Letter jr8 - Antibiotic Education jr8 - Prescription Opioid Use jr8 - Patient Portal Instructions jr8 - Leadership Thank You Letter jr8 Signatures: Dispatcher [employer] Deejay Cabello PA PA jr8 Donna Lopes, RN RN kd3
[2022-12-14 14:53] VITALS: BP 133/89; TEMP 97.7; O2SAT 100
--- NOTE | 2022-12-16 14:15 | EKG ---
Test Date: 2022-12-14 Test Time: 11:55:47 Show Card Writer: BRYSON MEASUREMENT RESULTS: Intervals: Rate: 71 UT: 194 QRSD: 86 QT: 402 QTc: 436 [place]: P: 32 UT: 194 QRS: -1 T: 37 INTERPRETIVE STATEMENTS: Normal sinus rhythm Normal ECG Compared to ECG 07/08/2021 17:19:49 Sinus bradycardia no longer present Myocardial infarct finding no longer present Electronically Signed On 12-16-22 14:08:48 SOLVENT PROCESS EXTRACTOR OPERATOR by Casper Colunga
== END 2022-12-14 14:31 | disposition home or self-care (01) ==
LOC: ER 11:48
DX: R07.89 Other chest pain (principal); I10 Essential (primary) hypertension; R73.03 Prediabetes; Z79.82 Long term (current) use of aspirin
CPT/HCPCS: 36415; 71045; 80048; 80076; 84484; 85025; 93005; 99284

== ENCOUNTER 2023-07-30 23:37 | Emergency (ER) | payer OTHER ==
--- NOTE | 2023-07-31 00:21 | EDPHYS ---
Physician Documentation [facility] Name: Carlos Celis Age: 58 yrs Sex: Male : 1965 Arrival Date: 07/30/2023 Time: 23:37 Bed 13 Private MD: ED Physician Kris Sprague HPI: 07/30 00:21 This 58 yrs old Male presents to ER via Unassigned with complaints of erection.ec2 00:21 Patient arrives today for evaluation of his erection. States that he used an injectable ec2 medication for his erection and subsequently was concerned as he has had an erection for 1.5 hours. Patient reports that he feels like has since started to have his erection come down.. Historical: - Allergies: 00:15 No Known Allergies; cm10 - PMHx: 00:15 Hypertensive disorder; pre-diabetic; cm10 - PSHx: 00:15 Appendectomy; Stented artery; cm10 - Immunization history:: Adult Immunizations up to date. - Infectious Disease History:: Denies. - Social history:: Smoking status: Patient denies any tobacco usage or history of. ROS: 00:21 Constitutional: as per hpi ec2 Exam: 00:21 Constitutional: GEN: NAD Head: atraumatic Eyes: EOMI Ears: External ears are ec2 normal. CV: regular rate LUNGS: no respiratory distress ABD: non-distended. : Some firmness of the penis, not completely erect. SKIN: no evidence of rashes MSK: no evidence of trauma NEURO: moves all extremities equally Vital Signs: 00:15 BP 145 / 90; Pulse 70; Resp 16; Temp 97.6; Pulse Ox 99% ; Weight 93.89 kg; Height 5 ft. cm10 9 in. ; Pain 0/10; 00:15 Body Mass Index 30.57 (93.89 kg, 175.26 cm) cm10 00:15 Pain Scale: Adult cm10 MDM: 07/29 23:47 Patient medically screened. ec2 07/30 00:21 Data reviewed: vital signs. ED course: Patient arrives today for evaluation of his ec2 erection. Examination remarkable for well colored penis that is beginning to detumesced. I discussed possible phenylephrine administration versus continuing to monitor and ultimately patient decided to monitor at home. Will discharge home, return precautions to come back if worsening pain or persistent erection. . Administered Medications: No medications were administered Disposition Summary: 07/31/23 00:21 Discharge Ordered Notes: Location: Home ec2 Condition: Stable ec2 Diagnosis - Erection ec2 Followup: ec2 - With: Private Physician - When: - Reason: Re-evaluation by your physician Discharge Instructions: - Discharge Summary Sheet ec2 - Priapism ec2 Forms: - Medication Reconciliation Form ec2 - Antibiotic Education ec2 - Prescription Opioid Use ec2 - Patient Portal Instructions ec2 - Leadership Thank You Letter ec2 Signatures: Franny Matthew RN RN cm10 Kris Sprague MD MD ec2
--- NOTE | 2023-07-31 00:34 | ER ---
Nurse's Notes [facility] Name: Carlos Celis Age: 58 yrs Sex: Male : 1965 Arrival Date: 07/30/2023 Time: 23:37 Bed 13 Private MD: Diagnosis: Erection Presentation: 07/30 00:15 Chief complaint: Patient states: Presenting to the ED due to injecting medication in cm10 his penis for erectile dysfunction and needing to know the medication to take at home in the event that he has an erection for longer than 4 hrs. Pt states that he no longer has an erection. Coronavirus screen: Client denies travel out of the [place] in the last 14 days. Ebola Screen: Patient denies travel to an Ebola-affected area in the 21 days before illness onset. No symptoms or risks identified at this time. Initial Sepsis Screen: Does the patient meet any 2 criteria? No. Patient's initial sepsis screen is negative. Does the patient have a suspected source of infection? No. Patient's initial sepsis screen is negative. Risk Assessment: Do you want to hurt yourself or someone else? Patient reports no desire to harm self or others. Onset of symptoms was July 31, 2023. 00:15 Method Of Arrival: Ambulatory cm10 00:15 Acuity: SYLVIE 5 cm10 Triage Assessment: 00:15 General: Appears in no apparent distress. comfortable, Behavior is calm, cooperative. cm10 Pain: Denies pain. Neuro: No deficits noted. Level of Consciousness is awake, alert, obeys commands, Oriented to person, place, time, situation. Respiratory: No deficits noted. Airway is patent Respiratory effort is even, unlabored, Respiratory pattern is regular, symmetrical. Historical: - Allergies: 00:15 No Known Allergies; cm10 - PMHx: 00:15 Hypertensive disorder; pre-diabetic; cm10 - PSHx: 00:15 Appendectomy; Stented artery; cm10 - Immunization history:: Adult Immunizations up to date. - Infectious Disease History:: Denies. - Social history:: Smoking status: Patient denies any tobacco usage or history of. Screenin:32 [facility] ED Fall Risk Assessment (Adult) History of falling in the last 3 months, cm10 including since admission No falls in past 3 months (0 pts) Confusion or Disorientation No (0 pts) Intoxicated or Sedated No (0 pts) Impaired Gait No (0 pts) Mobility Assist Device Used No (0 pt) Altered Elimination No (0 pt) Score/Fall Risk Level 0 - 2 = Low Risk Oriented to surroundings, Maintained a safe environment, Hourly rounding (assess needs \T\ fall precautionary measures) done. Abuse screen: Denies threats or abuse. Denies injuries from another. Nutritional screening: No deficits noted. Tuberculosis screening: No symptoms or risk factors identified. Vital Signs: 00:15 BP 145 / 90; Pulse 70; Resp 16; Temp 97.6; Pulse Ox 99% ; Weight 93.89 kg; Height 5 ft. cm10 9 in. ; Pain 0/10; 00:15 Body Mass Index 30.57 (93.89 kg, 175.26 cm) cm10 00:15 Pain Scale: Adult cm10 ED Course: 07/29 23:43 Patient arrived in ED. ra3 23:46 Kris Sprague MD is Attending Physician. ec2 07/30 00:15 Arm band placed on Patient placed in an exam room, on a stretcher. cm10 00:29 Franny Matthew RN is Primary Nurse. cm10 00:31 Triage completed. cm10 00:32 Patient has correct armband on for positive identification. Provided Education on: cm10 follow-up instruction. 00:32 Assisted provider with: penis exam. Patient did not have IV access during this cm10 emergency room visit. Administered Medications: No medications were administered Medication: 00:32 VIS not applicable for this client. cm10 Outcome: 00:21 Discharge ordered by . ec2 00:33 Discharged to home ambulatory, cm10 00:33 Condition: good 00:33 Discharge instructions given to patient, Instructed on discharge instructions, follow up and referral plans. Demonstrated understanding of instructions, follow-up care, 00:33 Patient left the ED. cm10 Signatures: Franny Matthew RN RN 10 Kris Sprague MD MD ec2 Angely Hayes ra3
[2023-07-31 06:47] VITALS: BP 145/90; TEMP 97.6; O2SAT 99
== END 2023-07-31 00:33 | disposition home or self-care (01) ==
LOC: ER 23:37
DX: N48.30 Priapism, unspecified (principal)

== ENCOUNTER 2023-09-14 07:43 | Observation (INO) | payer OTHER ==
[2023-09-14] MEDS ORDERED: ASPIRIN 81 MG CHEWABLE TABLET ONE (08:02)
[2023-09-14] MEDS ORDERED: NA CHLORIDE 0.9% 1,000 ML ONE (08:02)
[2023-09-14] MEDS ORDERED: FAMOTIDINE 20 MG/2 ML VIAL IV ONE (08:02)
[2023-09-14 08:06] LABS: Absolute Eosinophils 0.1 K/uL (0-0.5); Absolute Lymphocytes (CBC) 1.7 K/uL (0.7-4.9); Absolute Monocytes 0.4 K/uL (0.1-1.3); Absolute Neutrophil 3.3 K/uL (1.8-8.0); Basophils % 0.4 % (0-1.3); Eosinophils % 2.5 % (0-4.4); Hematocrit 42.5 % (39.6-49.0); Hemoglobin 14.2 g/dL (13.6-17.9); Lymphocytes % 30.7 % (15.3-44.8); MCH 31.1 pg (27.0-35.0); MCHC 33.3 g/dL (32.0-36.0); MCV 93.3 fL (80-100); MPV 7.2 fL (7.6-11.3); Monocytes % 6.4 % (3.3-12.3); Nucleated Red Blood Cells % 0.1 % (0-0); Platelets 196 thou/uL (152-406); RBC Red Blood Cell Count 4.56 M/uL (4.33-5.43); Red Cell Distribution Width 13.4 % (12.1-15.2)
--- NOTE | 2023-09-14 08:17 | RAD REPORT ---
EXAM DESCRIPTION: RAD - Chest Single View - 09/14/2023 8:07 am CLINICAL HISTORY: CHEST PAIN COMPARISON: Chest Single View dated 12/14/2022; Chest Single View dated 07/08/2021; Chest Single View d ated 05/22/2021; Chest Single View dated 04/21/2021 FINDINGS: Lines: None. Lungs: No evidence of edema or pneumonia. Pleural: No significant pleural effusions or pneumothorax. Cardiac: The heart size is within normal limits. Mediastinum: Within normal limits. Bones: No acute fractures. Other: None IMPRESSION: No acute cardiopulmonary disease.
[2023-09-14 08:27] LABS: Albumin 4.1 g/dL (3.4-5.0); Anion Gap 7.5 mEq/L (5.0-15.0); Bilirubin Direct 0.2 mg/dL (0-0.2); Bilirubin Indirect, Calculated 0.4 mg/dL (0.2-0.8); Bilirubin Total 0.6 mg/dL (0.2-1.0); Globulin 4.1 g/dL (2.3-3.5); Magnesium 2.7 mg/dL (1.6-2.4); Potassium 3.5 mEq/L (3.5-5.1); Protein, Total 8.2 g/dL (6.4-8.2); Troponin High Sensitivity 25.8 pg/mL (<58.9)
[2023-09-14 08:42] LABS: PT Prothrombin Time 12.6 SECONDS (9.4-12.5); Protime INR 1.12
--- NOTE | 2023-09-14 08:44 | RAD REPORT ---
EXAM DESCRIPTION: US - Abdomen Exam Limited - 09/14/2023 8:28 am CLINICAL HISTORY: ABD PAIN COMPARISON: No comparisons FINDINGS: The gallbladder demonstrates no gallstones. No pericholecystic fluid or gallbladder wall t hickening. The common bile duct is within normal limits for age measuring 6 mm. The liver demonstrates no findings of intrahepatic biliary dilatation. IMPRESSION: Negative for cholelithiasis or acute cholecystitis.
[2023-09-14] MEDS ORDERED: ENOXAPARIN 100 MG/ML SYR SQ ONE (09:13)
--- NOTE | 2023-09-14 09:28 | EDPHYS ---
Physician Documentation [facility] Name: Carlos Celis Age: 58 yrs Sex: Male : 1965 Arrival Date: 09/14/2023 Time: 07:43 Bed 18 Private MD: ED Physician Edi He HPI: 09/13 07:55 This 58 yrs old Male presents to ER via Unassigned with complaints of Chest vivek Pain. 07:55 The patient or guardian reports chest pain that is located primarily in the substernal vivek area, anterior chest wall, left. Onset: 1 day(s) ago. The pain does not radiate. Associated signs and symptoms: Pertinent positives: abdominal pain. The chest pain is described as aching. Duration: The patient or guardian reports multiple episodes, that have now resolved. Severity of pain: At its worst the pain was moderate in the emergency department the pain is unchanged. The patient has experienced similar episodes in the past, a few times. Historical: - Allergies: 07:51 No Known Allergies; rs5 - Home Meds: 08:12 aspirin 81 mg Oral tab 1 tab daily [Active]; atorvastatin 40 mg Oral tab 1 tab once rs5 daily [Active]; losartan 25 mg Oral tab [Active]; metoprolol tartrate 25 mg Oral tab 1 tab 2 times per day [Active]; clopidogrel oral [Active]; - PMHx: 07:51 Hypertensive disorder; pre-diabetic; rs5 - PSHx: 07:51 Appendectomy; Stented artery; rs5 - Immunization history:: Adult Immunizations up to date. - Infectious Disease History:: Denies. - Family history:: not pertinent. - Social history:: Smoking status: Patient denies any tobacco usage or history of. ROS: 07:55 Constitutional: Negative for fever, chills, and weight loss, Eyes: Negative for injury, vivek pain, redness, and discharge, ENT: Negative for injury, pain, and discharge, Neck: Negative for injury, pain, and swelling, Respiratory: Negative for shortness of breath, cough, wheezing, and pleuritic chest pain, Back: Negative for injury and pain, : Negative for injury, bleeding, discharge, and swelling, MS/Extremity: Negative for injury and deformity, Skin: Negative for injury, rash, and discoloration, Neuro: Negative for headache, weakness, numbness, tingling, and seizure, Psych: Negative for depression, anxiety, suicide ideation, homicidal ideation, and hallucinations, Allergy/Immunology: Negative for hives, rash, and allergies, Endocrine: Negative for neck swelling, polydipsia, polyuria, polyphagia, and marked weight changes, Hematologic/Lymphatic: Negative for swollen nodes, abnormal bleeding, and unusual bruising, 07:55 Cardiovascular: Positive for chest pain, 07:55 Abdomen/GI: Positive for abdominal pain, Exam: 07:55 Constitutional: This is a well developed, well nourished patient who is awake, alert, vivek and in no acute distress. Head/Face: Normocephalic, atraumatic. Eyes: Pupils equal round and reactive to light, extra-ocular motions intact. Lids and lashes normal. Conjunctiva and sclera are non-icteric and not injected. Cornea within normal limits. Periorbital areas with no swelling, redness, or edema. ENT: Nares patent. No nasal discharge, no septal abnormalities noted. Tympanic membranes are normal and external auditory canals are clear. Oropharynx with no redness, swelling, or masses, exudates, or evidence of obstruction, uvula midline. Mucous membranes moist. Neck: Trachea midline, no thyromegaly or masses palpated, and no cervical lymphadenopathy. Supple, full range of motion without nuchal rigidity, or vertebral point tenderness. No Meningismus. Chest/axilla: Normal chest wall appearance and motion. Nontender with no deformity. No lesions are appreciated. Cardiovascular: Regular rate and rhythm with a normal S1 and S2. No gallops, murmurs, or rubs. Normal PMI, no JVD. No pulse deficits. Respiratory: Lungs have equal breath sounds bilaterally, clear to auscultation and percussion. No rales, rhonchi or wheezes noted. No increased work of breathing, no retractions or nasal flaring. Abdomen/GI: Soft, non-tender, with normal bowel sounds. No distension or tympany. No guarding or rebound. No evidence of tenderness throughout. Back: No spinal tenderness. No costovertebral tenderness. Full range of motion. Male : Normal genitalia with no discharge or lesions. Skin: Warm, dry with normal turgor. Normal color with no rashes, no lesions, and no evidence of cellulitis. MS/ Extremity: Pulses equal, no cyanosis. Neurovascular intact. Full, normal range of motion. Neuro: Awake and alert, GCS 15, oriented to person, place, time, and situation. Cranial nerves II-XII grossly intact. Motor strength 5/5 in all extremities. Sensory grossly intact. Cerebellar exam normal. Normal gait. Psych: Awake, alert, with orientation to person, place and time. Behavior, mood, and affect are within normal limits. 07:55 Musculoskeletal/extremity: DVT Exam: No signs of deep vein thrombosis. no pain, no swelling, no tenderness, negative Homans' sign noted on exam, no appreciated bluish discoloration, no erythema, no increased warmth, 08:03 ECG was reviewed by the Attending Physician. [facility] Vital Signs: 07:50 BP 144 / 97; Pulse 61; Resp 17; Temp 97.8(O); Pulse Ox 98% on R/A; rs5 09:07 Weight 95.25 kg; Height 5 ft. 10 in. ; rs5 12:45 BP 127 / 88; Pulse 66; Resp 17; Pulse Ox 98% on R/A; rs5 09:07 Body Mass Index 30.13 (95.25 kg, 177.8 cm) rs5 MDM: 07:49 Patient medically screened. vivek 07:56 Differential diagnosis: abnormal EKG, acute myocardial infarction, acute pericarditis, vivek anxiety, chest wall pain, Cholelithiasis costochondritis, esophagitis, gastritis, herpes zoster, pancreatitis, peptic ulcer disease, pericarditis, pleurisy, pneumonia, pulmonary embolus, stable angina, thoracic aortic disection, unstable angina. HEART Score: History: Slightly Suspicious (0), ECG: Non specific repolarization disturbance / LBTB / PM (1), Age: > 45 and < 65 years (1), Risk Factors: > or = 3 Risk factors for atherosclerotic disease (2), [Hypercholesterolemia] [Hypertension] [DM] [+ Family HX] Troponin: < or = 1 x Normal Limit (0). The patient was given aspirin in the Emergency Department. HARI Risk Score: 1 - Three or more CAD risk factors, 1- Known CAD, 1 - Recent [<24hrs] Severe Angina. Data reviewed: vital signs, nurses notes, lab test result(s), EKG, radiologic studies, CT scan, plain films. Consideration of Admission/Observation Escalation of care including admission/observation considered. I considered the following discharge prescriptions or medication management in the emergency department Medications were administered in the Emergency Department. See MAR. Independent interpretation of the following test(s) in the Emergency Department EKG: See my EKG interpretation above. Test considered but Not performed: Ultrasound no 2 d echo. Historians other than the Patient: pt well informed. Care significantly affected by the following chronic conditions: Diabetes, Hypertension, Congestive Heart Failure. Counseling: I had a detailed discussion with the patient and/or guardian regarding the historical points, exam findings, and any diagnostic results supporting the discharge/admit diagnosis, lab results, radiology results, the need for further work-up and treatment in the hospital. 09/13 07:49 Order name: Basic Metabolic Panel; Complete Time: 08:59 vivek 09/13 07:49 Order name: CBC with Diff; Complete Time: 08:59 vivek 09/13 07:49 Order name: LFT's; Complete Time: 08:59 vivek 09/13 07:49 Order name: Magnesium; Complete Time: 08:59 vivek 09/13 07:49 Order name: NT PRO-BNP; Complete Time: 08:59 vivek 09/13 07:49 Order name: PT-INR; Complete Time: 08:59 vivek 09/13 07:49 Order name: Troponin HS; Complete Time: 08:59 vivek 09/13 07:49 Order name: Lipase; Complete Time: 08:59 vivek 09/13 11:43 Order name: T4 Free EDNV 09/13 11:43 Order name: Thyroid Stimulating Hormone EDNV 09/13 11:43 Order name: Basic Metabolic Panel EDNV 09/13 11:43 Order name: Basic Metabolic Panel EDMS 09/13 11:43 Order name: Basic Metabolic Panel EDMS 09/13 11:43 Order name: CBC with Automated Diff EDMS 09/13 11:43 Order name: CBC with Automated Diff EDMS 09/13 11:43 Order name: CBC with Automated Diff EDMS 09/13 11:43 Order name: Hemoglobin A1c EDMS 09/13 11:43 Order name: Hemoglobin A1c EDMS 09/13 11:43 Order name: Lipid Profile EDMS 09/13 11:43 Order name: Lipid Profile EDMS 09/13 11:43 Order name: Magnesium EDMS 09/13 11:43 Order name: Magnesium EDMS 09/13 11:43 Order name: Magnesium EDMS 09/13 11:43 Order name: Phosphorus EDMS 09/13 11:43 Order name: Phosphorus EDMS 09/13 11:43 Order name: Phosphorus EDMS 09/13 11:43 Order name: Troponin High Sensitivity EDMS 09/13 11:43 Order name: Troponin High Sensitivity EDMS 09/13 11:44 Order name: Troponin High Sensitivity EDMS 09/13 07:49 Order name: XRAY Chest (1 view); Complete Time: 08:59 [facility] 09/13 07:54 Order name: US Abdomen Limited; Complete Time: 08:59 [facility] 09/13 10:19 Order name: CT Aorta for Dissection [facility] 09/13 11:43 Order name: Echo with Doppler EDNV 09/13 07:49 Order name: Cardiac monitoring; Complete Time: 08:11 [facility] 09/13 07:49 Order name: EKG - Nurse/Tech; Complete Time: 08:11 [facility] 09/13 07:49 Order name: IV Saline Lock; Complete Time: 08:11 [facility] 09/13 07:49 Order name: Labs collected and sent; Complete Time: 08:11 [facility] 09/13 07:49 Order name: O2 Per Protocol; Complete Time: 08:12 [facility] 09/13 07:49 Order name: O2 Sat Monitoring; Complete Time: 08:12 [facility] EC:03 Rate is 55 beats/min. Rhythm is regular. QRS [place] is Normal. CT interval is normal. QRS vivek interval is normal. QT interval is normal. No Q waves. T waves are Normal. No ST changes noted. Clinical impression: Sinus bradycardia and No evidence of ischemia. Interpreted by me. Reviewed by me. Administered Medications: 08:11 Drug: Aspirin PO Chewable Tablet 162 mg PO once Route: PO; rs5 09:00 Follow up: Response: No adverse reaction rs5 08:11 Drug: NS 0.9% IV 1000 ml IV at 125 ml/hr continuous Route: IV; Rate: 125 ml/hr; Site: rs5 right antecubital; 08:30 Follow up: Response: No adverse reaction rs5 08:11 Drug: Famotidine IVP 20 mg IVP once; dilute with 10 mL 0.9% NaCl; give over 2 minutes rs5 Route: IVP; Site: right antecubital; 08:30 Follow up: Response: No adverse reaction rs5 09:24 Drug: Enoxaparin Sub-Q 1 mg/kg Sub-Q once Route: Sub-Q; Site: left lower abdomen; rs5 10:00 Follow up: Response: No adverse reaction rs5 Disposition Summary: 09/14/23 09:27 Hospitalization Ordered Notes: Hospitalization Status: Observation vivek Provider: Duran Fay cha Location: Telemetry/MedSurg (observation) vivke Condition: Stable vivek Problem: new vivek Symptoms: have improved vivek Bed/Room Type: Standard vivek Room Assignment: 207(09/14/23 11:54) bd Diagnosis - Chest pain, unspecified vivek - Functional dyspepsia vivek - Essential (primary) hypertension vivek Forms: - Medication Reconciliation Form vivek - SBAR form vivek - Leadership Thank You Letter vivek Signatures: Dispatcher [employer] EDMS Janki Roberts Corey, MD MD cha Sotelo, Ricky RN RN rs5 Corrections: (The following items were deleted from the chart) 07:55 07:55 Abdomen Limited+US.RAD.BRZ ordered. EDMS EDMS 11:54 09:27 vivek bd
--- NOTE | 2023-09-14 09:28 | ER ---
Nurse's Notes [facility] Name: Carlos Celis Age: 58 yrs Sex: Male : 1965 Arrival Date: 09/14/2023 Time: 07:43 Bed 18 Private MD: Diagnosis: Chest pain, unspecified;Functional dyspepsia;Essential (primary) hypertension Presentation: 09/13 07:50 Chief complaint: Patient states: Intermittent chest pain that started last night. rs5 07:50 Coronavirus screen: At this time, the client does not indicate any symptoms associated rs5 with coronavirus-19. Ebola Screen: No symptoms or risks identified at this time. Initial Sepsis Screen: Does the patient meet any 2 criteria? No. Patient's initial sepsis screen is negative. Does the patient have a suspected source of infection? No. Patient's initial sepsis screen is negative. Risk Assessment: Do you want to hurt yourself or someone else? Patient reports no desire to harm self or others. Onset of symptoms was September 14, 2023. 07:50 Method Of Arrival: Ambulatory rs5 07:50 Acuity: SYLVIE 3 rs5 Triage Assessment: 07:51 General: Appears in no apparent distress. uncomfortable, Behavior is calm, cooperative. rs5 Pain: Denies pain. Cardiovascular: Patient's skin is warm and dry. Historical: - Allergies: 07:51 No Known Allergies; rs5 - Home Meds: 08:12 aspirin 81 mg Oral tab 1 tab daily [Active]; atorvastatin 40 mg Oral tab 1 tab once rs5 daily [Active]; losartan 25 mg Oral tab [Active]; metoprolol tartrate 25 mg Oral tab 1 tab 2 times per day [Active]; clopidogrel oral [Active]; - PMHx: 07:51 Hypertensive disorder; pre-diabetic; rs5 - PSHx: 07:51 Appendectomy; Stented artery; rs5 - Immunization history:: Adult Immunizations up to date. - Infectious Disease History:: Denies. - Family history:: not pertinent. - Social history:: Smoking status: Patient denies any tobacco usage or history of. Screenin:55 [facility] ED Fall Risk Assessment (Adult) History of falling in the last 3 months, rs5 including since admission No falls in past 3 months (0 pts) Confusion or Disorientation No (0 pts) Intoxicated or Sedated No (0 pts) Impaired Gait No (0 pts) Mobility Assist Device Used No (0 pt) Altered Elimination No (0 pt) Score/Fall Risk Level 0 - 2 = Low Risk Oriented to surroundings, Maintained a safe environment. Abuse screen: Denies threats or abuse. Nutritional screening: No deficits noted. Tuberculosis screening: No symptoms or risk factors identified. Assessment: 07:50 General: Appears in no apparent distress. comfortable, Behavior is calm, cooperative. rs5 Pain: Denies pain. Neuro: Level of Consciousness is awake, alert, obeys commands, Oriented to person, place, time, situation. Cardiovascular: Patient's skin is warm and dry. Respiratory: Airway is patent Respiratory effort is even, unlabored, Respiratory pattern is regular, symmetrical. GI: Abdomen is round non-distended, Abd is soft and non tender X 4 quads. : No signs and/or symptoms were reported regarding the genitourinary system. EENT: No signs and/or symptoms were reported regarding the EENT system. Derm: Skin is intact, Skin is pink, warm \T\ dry. Musculoskeletal: Range of motion: intact in all extremities. 07:50 Reassessment: pt denies chest pain or SOB at this moment. rs5 09:01 Reassessment: Patient and/or family updated on plan of care and expected duration. Pain rs5 level reassessed. Patient is alert, oriented x 3, equal unlabored respirations, skin warm/dry/pink. Patient denies pain at this time. Patient states feeling better. 10:10 Reassessment: No changes from previously documented assessment. rs5 11:15 Reassessment: Patient and/or family updated on plan of care and expected duration. Pain rs5 level reassessed. Patient is alert, oriented x 3, equal unlabored respirations, skin warm/dry/pink. 12:22 Reassessment: Patient and/or family updated on plan of care and expected duration. Pain rs5 level reassessed. Patient is alert, oriented x 3, equal unlabored respirations, skin warm/dry/pink. Cardiovascular: Denies chest pain, Patient's skin is warm and dry. Respiratory: Respiratory effort is even, unlabored, Respiratory pattern is regular, symmetrical. 12:45 Reassessment: No changes from previously documented assessment. rs5 Vital Signs: 07:50 BP 144 / 97; Pulse 61; Resp 17; Temp 97.8(O); Pulse Ox 98% on R/A; rs5 09:07 Weight 95.25 kg; Height 5 ft. 10 in. ; rs5 12:45 BP 127 / 88; Pulse 66; Resp 17; Pulse Ox 98% on R/A; rs5 09:07 Body Mass Index 30.13 (95.25 kg, 177.8 cm) rs5 ED Course: 07:47 Patient arrived in ED. ra3 07:48 Edi He MD is Attending Physician. vivek 07:49 Elsa Alcala, RN is Primary Nurse. ll1 07:55 No provider procedures requiring assistance completed. rs5 07:55 Patient has correct armband on for positive identification. Placed in gown. Bed in low rs5 position. Call light in reach. Side rails up X2. Client placed on continuous cardiac and pulse oximetry monitoring. NIBP monitoring applied. news cameraman on. Pulse ox on. NIBP on. 07:56 EKG done, by ED staff, reviewed by Edi He MD. hb 08:05 EKG done, by ED staff, reviewed by Edi He MD. cc6 08:08 XRAY Chest (1 view) In Process Unspecified. EDMS 08:10 Triage completed. rs5 08:30 US Abdomen Limited In Process Unspecified. EDMS 09:26 Duran Fay is Hospitalizing Provider. vivek 10:36 CT Aorta for Dissection In Process Unspecified. EDMS Administered Medications: 08:11 Drug: Aspirin PO Chewable Tablet 162 mg PO once Route: PO; rs5 09:00 Follow up: Response: No adverse reaction rs5 08:11 Drug: NS 0.9% IV 1000 ml IV at 125 ml/hr continuous Route: IV; Rate: 125 ml/hr; Site: rs5 right antecubital; 08:30 Follow up: Response: No adverse reaction rs5 08:11 Drug: Famotidine IVP 20 mg IVP once; dilute with 10 mL 0.9% NaCl; give over 2 minutes rs5 Route: IVP; Site: right antecubital; 08:30 Follow up: Response: No adverse reaction rs5 09:24 Drug: Enoxaparin Sub-Q 1 mg/kg Sub-Q once Route: Sub-Q; Site: left lower abdomen; rs5 10:00 Follow up: Response: No adverse reaction rs5 Medication: 08:15 VIS not applicable for this client. rs5 Outcome: 09:27 Decision to Hospitalize by Provider. [facility] 13:09 Patient left the ED. rs5 Signatures: Dispatcher [employer] EDEdi Mccloud MD MD cha Baxter, Heather, RN Elsa Arevalo RN RN ll1 Hugo Sosa RN RN rs5 Angely Hayes 3 Hollie Cuellar RN RN cc6
--- NOTE | 2023-09-14 09:51 | P.HP ---
Certification for Inpatient Patient admitted to: Observation With expected LOS: <2 Midnights Patient will require the following post-hospital care: None Practitioner: I am a practitioner with admitting privileges, knowledge of patient current condition, hospital course, and medical plan of care. Services: Services provided to patient in accordance with Admission requirements found in Title 42 Section 412.3 of the Code of Federal Regulations Patient History Date of Service: 09/14/23 Reason for admission: Chest pain r/o History of Present Illness: Carlos Celis is a 58 year old female with Pmhx HTN, pre-diabetic, CAD with stent, who presented to the ED with chief complaint of pulsating to his chest and abdomen started one day ago. He reports being a patient of Dr. Colunga's with a scheduled appointment in a few months. Abdominal ultrasound is Negative for cholelithiasis or acute cholecystitis and chest xray is also negative for acute process. Troponin and EKG negative, CT negative for aortic disfunction. Preliminary EKG read Rate is 55 beats/min. Rhythm is regular. QRS [place] is Normal. [place] interval is normal. QRS interval is normal. QT interval is normal. No Q waves. T waves are Normal. No ST changes noted. Clinical impression: Sinus bradycardia and No evidence of ischemia. Laboratory evaluation magnesium 2.7, serum glucose 143, otherwise unremarkable. Ct dissection reports "No aortic aneurysm or dissection. No pulmonary embolus identified. No acute findings within the chest, abdomen, or pelvis." Chest x-ray reports "No acute cardiopulmonary disease." Ultrasound abdomen reports "Negative for cholelithiasis or acute cholecystitis." will be admitted to hospitalist service for further evaluation, Cardiology has been consulted Allergies No Known Allergies Allergy (Unverified 04/22/21 01:54) Home Medications: Losartan Potassium 25 mg PO DAILY 04/23/21 Aspirin [Aspirin EC 81 MG] 81 mg PO DAILY #30 tablet. 04/26/21 Atorvastatin Calcium [Lipitor] 40 mg PO BEDTIME #30 tab 04/26/21 Metoprolol Tartrate [Lopressor*] 25 mg PO BID 6AM 6PM #60 tab 04/26/21 Ticagrelor [Brilinta*] 90 mg PO BID #60 tablet 04/26/21 - Past Medical/Surgical History Diabetic: Yes -: Hypertension -: Diabetes Mellitus-NIDDM -: CAD s/p stent -: Appendectomy -: Stent Psychosocial/ Personal History: Patient lives at home with his . - Social History Smoking Status: Never smoker Alcohol use: No CD- Drugs: No Caffeine use: No Review of Systems Cardiovascular: Other (Chest pulsating ) Gastrointestinal: Other (Abdomen pulsating) Physical Examination - Physical Exam General: Alert, In no apparent distress, Oriented x3 HEENT: Atraumatic, Normocephalic, PERRLA Neck: Supple, 2+ carotid pulse no bruit, JVD not distended Respiratory: Clear to auscultation bilaterally, Normal air movement Cardiovascular: Normal pulses, Regular rate/rhythm, Normal S1 S2 Capillary refill: <2 Seconds Gastrointestinal: Normal bowel sounds, Soft and benign, No tenderness Musculoskeletal: No clubbing Integumentary: No rashes Neurological: Normal speech, Normal tone - Studies Laboratory Data (last 24 hrs) 09/14/23 09/14/23 09/14/23 08:00 08:00 08:00 WBC 5.50 Hgb 14.2 Hct 42.5 Plt Count 196 PT 12.6 H INR 1.12 Sodium 137 Potassium 3.5 BUN 20 H Creatinine 1.08 Glucose 143 H Magnesium 2.7 H Total Bilirubin 0.6 AST 21 ALT 31 Alkaline Phosphatase 66 Lipase 67 Assessment and Plan - Plan Assessment and plan Chest pain r/o in a patient with HX CAD s/p stent - describes his discomfort as "pulsating in his chest and abdomen" - EKG: No obvious ST segment changes - Serial troponin - Stat transthoracic echocardiogram - Ct dissection reports "No aortic aneurysm or dissection. No pulmonary embolus identified. No acute findings within the chest, abdomen, or pelvis." - chest x-ray reports "No acute cardiopulmonary disease." - Consult Cardiology - recommendations appreciated - Start daily baby aspirin and statin - Symptom control with PRN acetaminophen, nitroglycerin, morphine - continuous telemetry - TSH/FreeT4, A1C, lipid panel pending Hypermagnesemia -Mag 2.7 -Monitor in Am labs Diabetes mellitusNIDDM -Accu-Chek with sliding scale insulin -Initial serum glucose 143 -A1C pending History of HTN -continue home medications DVT ppx SCD full code LOS 24 hour OBS Discharge Plan: Home Plan to discharge in: 24 Hours - Advance Directives Does patient have a Living Will: No Does patient have a Durable POA for Healthcare: No
--- NOTE | 2023-09-14 10:59 | RAD REPORT ---
EXAM DESCRIPTION: CTAngio Aorta For Dissection - 09/14/2023 10:34 am CLINICAL HISTORY: DISSECTION COMPARISON: No comparisons TECHNIQUE: CTA of the chest, abdomen, and pelvis was performed with IV contrast and MIPS. All CT scans are performed using dose optimization technique as appropriate and may include automated exposure control or mA/KV adjustment according to patient size. FINDINGS: Thorax: Chest Wall: No abnormal mass Lungs: No acute abnormality. Pleura: No effusions or pneumothorax. Gracie/Mediastinum: No lymphadenopathy. Aorta/Pulmonary Arteries: Unremarkable Heart: Normal size. Coronary calcifications in the LAD. Abdomen/Pelvis: Liver: No acute abnormality or suspicious lesions. Biliary: No biliary ductal dilatation. Stomach: No significant focal abnormality. Duodenum: No significant focal abnormality. Pancreas: No significant abnormality. Spleen: No significant abnormality. Adrenal: No suspicious lesions. Kidney/ureter: No hydronephrosis. No renal calculi. Right lower pole renal lesion which is too small to characterize but statistically benign. Retroperitoneum: No retroperitoneal adenopathy. Vascular: No aneurysm. Bowel: No significant focal abnormality. Peritoneum: No ascites or free air. Bladder: Grossly unremarkable. Reproductive: Mild prostatomegaly. Bones: No acute fracture. Other: Lipoma in the left abdominal wall. IMPRESSION: No aortic aneurysm or dissection. No pulmonary embolus identified. No acute findings wit hin the chest, abdomen, or pelvis.
[2023-09-14] MEDS ORDERED: MORPHINE 2 MG/ML SYR IV PRN (12:27)
[2023-09-14] MEDS ORDERED: NITROGLYCERIN 0.4 MG/TAB SL PRN (12:27)
[2023-09-14] MEDS ORDERED: ACETAMINOPHEN 500 MG TAB PO PRN (12:27)
[2023-09-14 12:56] LABS: Thyroid Stimulating Hormone 3.39 uIU/mL (0.358-3.740)
--- NOTE | 2023-09-14 14:06 | EKG ---
Test Date: 2023-09-14 Test Time: 07:59:56 Cleaning Machine Operator: GIGI MEASUREMENT RESULTS: Intervals: Rate: 55 [place]: 214 QRSD: 98 QT: 442 QTc: 422 [place]: P: 20 [place]: 214 QRS: -14 T: 12 INTERPRETIVE STATEMENTS: Sinus bradycardia with sinus arrhythmia with 1st degree AV block Otherwise normal ECG Compared to ECG 12/14/2022 11:55:47 First degree AV block now present Sinus rhythm no longer present Electronically Signed On 09-14-23 14:05:08 CDT by Casper Colunga
--- NOTE | 2023-09-14 14:13 | ECHO ---
HEIGHT: 5 ft 10 in WEIGHT: 210 lb 0 oz DATE OF STUDY: 09/14/[address]: Nancy Monk NP 2-DIMENSIONAL: YES M.MODE: YES DOPPLER: YES COLOR FLOW: YES TDS: NO PORTABLE: YES DEFINITY: NO BUBBLE STUDY: NO DIAGNOSIS: PULSATING IN PATIENT CHEST CARDIAC HISTORY: CATHERIZATION: YES SURGERY: NO PROSTHETIC VALVE: NO PACEMAKER: NO MEASUREMENTS (cm) DIASTOLIC (NORMALS) SYSTOLIC (NORMALS) IVSd 1.0 (0.6-1.2) LA Diam 3.7 (1.9-4.0) LVEF 65% LVIDd 4.1 (3.5-5.7) LVIDs 2.6 (2.0-3.5) %FS 35% LVPWd 1.0 (0.6-1.2) Ao Diam 2.6 (2.0-3.7) 2 DIMENSIONAL ASSESSMENT: RIGHT ATRIUM: NORMAL LEFT ATRIUM: NORMAL RIGHT VENTRICLE: NORMAL LEFT VENTRICLE: NORMAL TRICUSPID VALVE: NORMAL MITRAL VALVE: NORMAL PULMONIC VALVE: NORMAL AORTIC VALVE: NORMAL PERICARDIAL EFFUSION: NONE AORTIC ROOT: NORMAL LEFT VENTRICULAR WALL MOTION: NORMAL. DOPPLER/COLOR FLOW: MILD TRICUSPID REGURGITATION. COMMENTS: 1. NORMAL LEFT VENTRICULAR EJECTION FRACTION 55-60% WITH NORMAL WALL MOTION. 2. NORMAL DIASTOLIC FUNCTION. 3. MILD TRICUSPID REGURGITATION WITH NORMAL RIGHT VENTRICULAR SYSTOLIC PRESSURE. TECHNOLOGIST: ILA CUEVA
--- NOTE | 2023-09-14 15:32 | CON ---
Date of Consultation: 09/14/2023 Reason For Consultation: Chest pain. History Of Present Illness: This is a 58-year-old male who is very well known to me, has history of coronary artery disease, status post PCI of the LAD in the past. Stress test in January was normal, comes in with chest pain, left-sided, sharp, lasting for few seconds and goes away. No palpitations , shortness of breath, or diaphoresis. No nausea or vomiting. He was seen in the emergency room. F irst set of cardiac enzymes are negative and he is chest pain-free now. Past Medical History: Hypertension, diabetes, coronary artery disease, dyslipidemia. Medications: Refer to reconciliation sheet for detailed list. Past Surgical History: Cardiac stent placement. Allergies: NO KNOWN DRUG ALLERGIES. Family History: No premature coronary artery disease or cancer. Social History: Does not smoke or drink. Does not use any drugs. Review of Systems: All systems were reviewed and they were negative except as mentioned in the HPI. Physical Examination: Vital Signs: Reviewed. Head and Neck: Pupils are equal, reactive to light. Intact eye movements. No JVD. No cervical lym phadenopathy. Neck is supple. Thyroid is not enlarged. Lungs: Clear to auscultation bilaterally. No rhonchi, wheezing, or crackles. No accessory muscle u se. Heart: Regular rate and rhythm. No extra sounds. Abdomen: Soft, nontender. Bowel sounds positive. No organomegaly. No masses or hernia. No rigidi ty or rebound. Extremities: No edema, clubbing, or cyanosis. Intact pulses. Skin: No rash. No nodule. Neurological: Alert, awake, oriented x3. No acute focal deficits appreciated. Investigations: BUN 20, creatinine 1.08, and NT-proBNP is 69. Troponin is negative first set, and h emoglobin is 14.4. Assessment And Plan: 1.Chest pain. History of coronary artery disease. Pain is atypical. This is likely noncardiac. C heck 2 more sets of cardiac enzymes. If they are negative, he can be released and to follow up with me on Sunday in the office and we will set him up for outpatient stress test and an echo and both nolan l be done as an outpatient. 2.Coronary artery disease. History of PCI in the past with the LAD. His chest pain is atypical. I f troponins are negative, he is to have a stress test early next week in my office. 3.Hypertension. Blood pressure is controlled. 4.Dyslipidemia. Recommend Lipitor 40 mg q.h.s. SR/MODL Voice ID: [id number] Report ID: [id number]
[2023-09-14] MEDS: INSULIN REGULAR (HUMAN) 100 UNIT/ML SQ SCH (16:30)
[2023-09-14 16:46] VITALS: BMI 29.1
[2023-09-14] MEDS: ATORVASTATIN 40 MG TAB PO SCH (20:32)
[2023-09-14] MEDS ORDERED: ASPIRIN EC 81 MG TAB PO SCH (22:43)
[2023-09-14] MEDS ORDERED: MELATONIN 5 MG TABLET PO PRN (22:44)
[2023-09-14] MEDS ORDERED: CLOPIDOGREL 75 MG TABLET PO SCH (22:45)
[2023-09-14] MEDS ORDERED: hydroCHLOROthiazide 25 MG TAB PO SCH (22:45)
[2023-09-14] MEDS: METOPROLOL TAR 25 MG TAB PO ONE (23:15)
[2023-09-14] MEDS: LOSARTAN POTASSIUM 50 MG TABLET PO ONE (23:15)
[2023-09-15] MEDS: METOPROLOL TAR 25 MG TAB PO SCH (06:00)
[2023-09-15 06:13] LABS: Absolute Eosinophils 0.2 K/uL (0-0.5); Absolute Lymphocytes (CBC) 1.7 K/uL (0.7-4.9); Absolute Monocytes 0.4 K/uL (0.1-1.3); Absolute Neutrophil 3.3 K/uL (1.8-8.0); Basophils % 0.5 % (0-1.3); Eosinophils % 3.9 % (0-4.4); Hematocrit 43.4 % (39.6-49.0); Hemoglobin 14.4 g/dL (13.6-17.9); Lymphocytes % 29.8 % (15.3-44.8); MCH 30.9 pg (27.0-35.0); MCHC 33.1 g/dL (32.0-36.0); MCV 93.4 fL (80-100); MPV 7.8 fL (7.6-11.3); Monocytes % 7.4 % (3.3-12.3); Neutrophils % 58.4 % (41.7-73.7); Platelets 197 thou/uL (152-406); RBC Red Blood Cell Count 4.65 M/uL (4.33-5.43); Red Cell Distribution Width 13.3 % (12.1-15.2)
[2023-09-15 06:37] LABS: Anion Gap 6.5 mEq/L (5.0-15.0); Magnesium 2.7 mg/dL (1.6-2.4); Phosphorus 3.2 mg/dL (2.5-4.9); Potassium 3.5 mEq/L (3.5-5.1)
[2023-09-15 08:36] VITALS: BP 105/67; TEMP 97.3
[2023-09-15] MEDS ORDERED: LOSARTAN POTASSIUM 50 MG TABLET PO SCH ×2 (09:00→21:00)
[2023-09-15] MEDS: ASPIRIN EC 81 MG TAB PO SCH ×2 (09:00→10:22)
[2023-09-15] MEDS: AMLODIPINE 10 MG TAB PO SCH (09:00)
--- NOTE | 2023-09-15 10:01 | P.DS ---
Admission Date: 09/14/23 Discharge Date: 09/15/23 Disposition: ROUTINE DISCHARGE Discharge Condition: GOOD Reason for Admission: Chest pain r/o Brief History of Present Illness: Diagnosis Chest pain r/o in a patient with HX CAD s/p stent Hypermagnesemia Diabetes mellitusNIDDM History of HTN HPI 09/14/2023 Carlos Celis is a 58 year old female with Pmhx HTN, pre-diabetic, CAD with stent, who presented to the ED with chief complaint of pulsating to his chest and abdomen started one day ago. He reports being a patient of Dr. Colunga's with a scheduled appointment in a few months. Abdominal ultrasound is Negative for cholelithiasis or acute cholecystitis and chest xray is also negative for acute process. Troponin and EKG negative, CT negative for aortic disfunction. Preliminary EKG read Rate is 55 beats/min. Rhythm is regular. QRS [place] is Normal. NC interval is normal. QRS interval is normal. QT interval is normal. No Q waves. T waves are Normal. No ST changes noted. Clinical impression: Sinus bradycardia and No evidence of ischemia. Laboratory evaluation magnesium 2.7, serum glucose 143, otherwise unremarkable. Ct dissection reports "No aortic aneurysm or dissection. No pulmonary embolus identified. No acute findings within the chest, abdomen, or pelvis." Chest x-ray reports "No acute cardiopulmonary disease." Ultrasound abdomen reports "Negative for cholelithiasis or acute cholecystitis." will be admitted to hospitalist service for further evaluation, Cardiology has been consulted Hospital Course: Carlos Celis is a pleasant 58 corrine old male with a past medical history significant for HTN, pre-diabetic, CAD with stent who was admitted to the [facility] on 09/14/23 for pulsating to his chest and abdomen. presented with pulsating discomfort to his chest and abdomen, he was sure to say it was not pain. CTA Dissection was negative for aortic dissfunction, EKG without ST deviation, Troponins remained negative, US abdomen negative for cholelithiasis or acute cholecystitis. ECHO reports normal EF with mild tricuspid regurgitation. He reports feeling well this morning, chest pain has been relieved. Dr. Colunga was consulted and recommends follow up in his clinic next week. On 09/15/23, was seen on morning rounds and deemed medically stable for discharge. was discharged with instructions to schedule follow-up appointments with PCP and Dr. Colunga. Physical Exam General: Alert and Oriented x3, NAD HEENT: Atraumatic, Normocephalic, PERRLA Neck: Supple, 2+ carotid pulse no bruit, JVD not distended Respiratory: Clear to auscultation bilaterally, Normal air movement Cardiovascular: Normal pulses present, RRR, Normal S1 S2 Capillary refill: <2 Seconds Gastrointestinal: Normal bowel sounds, Soft and benign on palpation, ND/NT Musculoskeletal: No clubbing Integumentary: No rashes Neurological: Normal speech, Normal tone Vital Signs/Physical Exam: Temp Pulse Resp BP Pulse Ox 97.3 F 43 L 18 105/67 96 09/15/23 08:00 09/15/23 09:00 09/15/23 08:00 09/15/23 09:00 09/15/23 08:00 Laboratory Data at Discharge: WBC 5.70 thou/uL (4.3-10.9) 09/15/23 05:45 Hgb 14.4 g/dL (13.6-17.9) 09/15/23 05:45 Hct 43.4 % (39.6-49.0) 09/15/23 05:45 Plt Count 197 thou/uL (152-406) 09/15/23 05:45 PT 12.6 SECONDS (9.4-12.5) H 09/14/23 08:00 INR 1.12 09/14/23 08:00 Sodium 135 mEq/L (136-145) L 09/15/23 05:45 Potassium 3.5 mEq/L (3.5-5.1) 09/15/23 05:45 BUN 20 mg/dL (7-18) H 09/15/23 05:45 Creatinine 1.12 mg/dL (0.70-1.30) 09/15/23 05:45 Glucose 121 mg/dL (74-106) H 09/15/23 05:45 Phosphorus 3.2 mg/dL (2.5-4.9) 09/15/23 05:45 Magnesium 2.7 mg/dL (1.6-2.4) H 09/15/23 05:45 Total Bilirubin 0.6 mg/dL (0.2-1.0) 09/14/23 08:00 AST 21 U/L (15-37) 09/14/23 08:00 ALT 31 U/L (16-61) 09/14/23 08:00 Alkaline Phosphatase 66 U/L (45-117) 09/14/23 08:00 Triglycerides 96 mg/dL (<150) 09/15/23 05:45 Cholesterol 112 mg/dL (<200) 09/15/23 05:45 HDL Cholesterol 36 mg/dL (40-60) L 09/15/23 05:45 Cholesterol/HDL Ratio 3.11 09/15/23 05:45 Lipase 67 U/L (13-75) 09/14/23 08:00 Home Medications: Losartan Potassium 100 mg PO DAILY 04/23/21 Aspirin [Aspirin EC 81 MG] 81 mg PO DAILY #30 tablet. 04/26/21 Atorvastatin Calcium [Lipitor] 40 mg PO BEDTIME #30 tab 04/26/21 Metoprolol Tartrate [Lopressor*] 25 mg PO BID 6AM 6PM #60 tab 04/26/21 Amlodipine [Norvasc*] 10 mg PO DAILY 09/14/23 Clopidogrel Bisulfate [Plavix] 75 mg PO ONCE 09/14/23 Hydrochlorothiazide 25 mg PO ONCE 09/14/23 Physician Discharge Instructions: Carlos Celis was observed for chest discomfort, an emergency ECHO perfomed showing mild tricuspid regurgitaion and normal ejection fraction. CT to visualize the aorta resulted normal. Continue to follow up with Dr. Colunga on Sunday for further testing. Check your blood pressure before taking your medications. Blood pressure less than 110/70, please do not your blood pressure medication Metoprolol Heart Rate less than 55, please do not take your blood pressure medication metoprolol 1. Please call and schedule a follow-up appointment with your PCP in 3-5 days if needed - Please follow-up with your PCP for medication refills/adjustments 2. Please call and schedule a follow-up appointment with Dr. Colunga in 3-5 days 3. Continue Heart healthy diet 4. No activity restrictions 5. Return to the ED if symptoms worsen Diet: AHA Activity: Ad lucien Followup: OOT,OOT [Primary Care Provider] - Casper Colunga MD [ACTIVE - CAN ADMIT] -
[2023-09-15 11:06] VITALS: O2SAT 96
[2023-09-15] MEDS ORDERED: ATORVASTATIN 40 MG TAB PO SCH (21:00)
== END 2023-09-15 10:55 | disposition home or self-care (01) ==
LOC: ER 07:43 → ERHOLD 11:34 → 2ND 12:08
PROVIDERS: ADMIT Internal Medicine; ATTEND Internal Medicine
DX: R07.9 Chest pain, unspecified (principal); E11.9 Type 2 diabetes mellitus without complications; I10 Essential (primary) hypertension; E83.41 Hypermagnesemia; I25.10 Atherosclerotic heart disease of native coronary artery without angina pectoris; R73.03 Prediabetes; E78.5 Hyperlipidemia, unspecified; K30 Functional dyspepsia; Z95.5 Presence of coronary angioplasty implant and graft
CPT/HCPCS: 93005; 93306; 85025 ×2; 80048 ×2; 36415 ×2; 83735 ×2; 84100; 85610; 80061; 82947 ×3; 80076; 84443; 83036; 84484 ×3; 84439; 83690; 83880; 71275; 74175; 71045; 76705; 96372; 96374; 99285; Q9967; J1650; J7030